=== PATIENT | female | born 1975 | race Caucasian/White ===

== ENCOUNTER 2024-04-17 13:43 | Emergency (ER) | payer BC ==
[2024-04-17 13:54] VITALS: BP 165/84; PULSE 111; RESP 16; TEMP 97.9
--- NOTE | 2024-04-17 14:07 | ED ---
SOB HPI - General Source: patient, RN notes reviewed Mode of arrival: ambulatory Limitations: no limitations <Chelsea Gamez - Last Filed: 04/17/24 14:05> <Melvin Austin - Last Filed: 04/17/24 16:31> - General Chief Complaint: Shortness of Breath Stated Complaint: Chest Pain Time Seen by Provider: 04/17/24 14:00 - History of Present Illness Initial Comments: Quick Note- this is a 48-year-old female presents emergency department chief complaint of shortness of breath, headaches, ear pain, and body aches over the last few days. Denies chest pain chest pressure, palpitations, dizziness. She denies history of DVT, PE, AK, CVA. Is not on blood thinners. (Chelsea Gamez) - Related Data Previous Rx's Medication Instructions Recorded Losartan [Cozaar] 50 mg PO BID #60 tab 04/17/24 Allergies Allergy/AdvReac Type Severity Reaction Status Date / Time No Known Allergies Allergy Verified 04/17/24 13:54 Review of Systems ROS Other: All systems not noted in ROS Statement are negative. <Chelsea Gamez - Last Filed: 04/17/24 14:05> ROS Other: All systems not noted in ROS Statement are negative. <Melvin Austin - Last Filed: 04/17/24 16:31> ROS Statement: Those systems with pertinent positive or pertinent negative responses have been documented in the HPI. Past Medical History Past Medical History: Hypertension History of Any Multi-Drug Resistant Organisms: None Reported Past Surgical History: Section, Hysterectomy, Tonsillectomy Past Psychological History: Anxiety, Depression Smoking Status: Current every day smoker Past Alcohol Use History: Occasional Past Drug Use History: Marijuana <Chelsea Gamez - Last Filed: 04/17/24 14:05> General Exam Limitations: no limitations <Chelsea Gamez - Last Filed: 04/17/24 14:05> - General Exam Comments Initial Comments: Visual Physical Exam Vital signs reviewed General: Well-appearing, nontoxic, no acute distress. Head: Normocephalic, atraumatic Eyes: PERRLA, EOMI ENT: Airway patent Chest: Nonlabored breathing Skin: No visual rash, normal skin tone Neuro: Alert and oriented 3 Musculoskeletal: No gross abnormalities (Chelsea Gamez) Course Vital Signs 04/17/24 13:49 Temperature 97.9 F Pulse Rate 111 H Respiratory 16 Rate Blood Pressure 165/84 O2 Sat by Pulse 100 Oximetry Medical Decision Making <Chelsea Gamez - Last Filed: 04/17/24 14:05> - Lab Data Result diagrams: 04/17/24 14:36 04/17/24 14:36 <Melvin Austin - Last Filed: 04/17/24 16:31> - Medical Decision Making I completed the quick note portion of this chart signed Chelsea Gamez PA-C (Chelsea Gamez) - Lab Data Lab Results 04/17/24 04/17/24 04/17/24 Range/Units 14:36 14:36 14:36 WBC 7.3 (3.8-10.6) k/uL RBC 4.41 (3.80-5.40) m/uL Hgb 14.3 (11.4-16.0) gm/dL Hct 42.0 (34.0-46.0) % MCV 95.2 (80.0-100.0) fL MCH 32.5 (25.0-35.0) pg MCHC 34.1 (31.0-37.0) g/dL RDW 13.5 (11.5-15.5) % Plt Count 142 L (150-450) k/uL MPV 8.4 Neutrophils % 71 % Lymphocytes % 21 % Monocytes % 4 % Eosinophils % 1 % Basophils % 0 % Neutrophils # 5.2 (1.3-7.7) k/uL Lymphocytes # 1.6 (1.0-4.8) k/uL Monocytes # 0.3 (0-1.0) k/uL Eosinophils # 0.1 (0-0.7) k/uL Basophils # 0.0 (0-0.2) k/uL PT 11.0 (10.0-12.5) sec INR 1.0 (<1.2) APTT 25.1 (22.0-30.0) sec Sodium 139 (137-145) mmol/L Potassium 2.7 L* (3.5-5.1) mmol/L Chloride 104 (98-107) mmol/L Carbon Dioxide 25 (22-30) mmol/L Anion Gap 10 mmol/L BUN 8 (7-17) mg/dL Creatinine 0.62 (0.52-1.04) mg/dL Est GFR (CKD-EPI)AfAm >90 (>60 ml/min/1.73 sqM) Est GFR (CKD-EPI)NonAf >90 (>60 ml/min/1.73 sqM) Glucose 99 (74-99) mg/dL Calcium 9.6 (8.4-10.2) mg/dL Magnesium 2.0 (1.6-2.3) mg/dL Total Bilirubin 1.0 (0.2-1.3) mg/dL AST 57 H (14-36) U/L ALT 30 (4-34) U/L Alkaline Phosphatase 73 (38-126) U/L Total Protein 7.7 (6.3-8.2) g/dL Albumin 4.5 (3.5-5.0) g/dL Influenza Type A (PCR) (Not Detectd) Influenza Type B (PCR) (Not Detectd) RSV (PCR) (Not Detectd) SARS-CoV-2 (PCR) (Not Detectd) 04/17/24 Range/Units 14:36 WBC (3.8-10.6) k/uL RBC (3.80-5.40) m/uL Hgb (11.4-16.0) gm/dL Hct (34.0-46.0) % MCV (80.0-100.0) fL MCH (25.0-35.0) pg MCHC (31.0-37.0) g/dL RDW (11.5-15.5) % Plt Count (150-450) k/uL MPV Neutrophils % % Lymphocytes % % Monocytes % % Eosinophils % % Basophils % % Neutrophils # (1.3-7.7) k/uL Lymphocytes # (1.0-4.8) k/uL Monocytes # (0-1.0) k/uL Eosinophils # (0-0.7) k/uL Basophils # (0-0.2) k/uL PT (10.0-12.5) sec INR (<1.2) APTT (22.0-30.0) sec Sodium (137-145) mmol/L Potassium (3.5-5.1) mmol/L Chloride (98-107) mmol/L Carbon Dioxide (22-30) mmol/L Anion Gap mmol/L BUN (7-17) mg/dL Creatinine (0.52-1.04) mg/dL Est GFR (CKD-EPI)AfAm (>60 ml/min/1.73 sqM) Est GFR (CKD-EPI)NonAf (>60 ml/min/1.73 sqM) Glucose (74-99) mg/dL Calcium (8.4-10.2) mg/dL Magnesium (1.6-2.3) mg/dL Total Bilirubin (0.2-1.3) mg/dL AST (14-36) U/L ALT (4-34) U/L Alkaline Phosphatase (38-126) U/L Total Protein (6.3-8.2) g/dL Albumin (3.5-5.0) g/dL Influenza Type A (PCR) Not Detected (Not Detectd) Influenza Type B (PCR) Not Detected (Not Detectd) RSV (PCR) Not Detected (Not Detectd) SARS-CoV-2 (PCR) Not Detected (Not Detectd) Disposition <Chelsea Gamez - Last Filed: 04/17/24 14:05> Is patient prescribed a controlled substance at d/c from ED?: No Time of Disposition: 16:30 <Melvin Austin - Last Filed: 04/17/24 16:31> Clinical Impression: Hypokalemia, Hypertension Disposition: HOME SELF-CARE Condition: Good Instructions (If sedation given, give patient instructions): Hypokalemia (ED), Hypertension (ED) Prescriptions: Losartan [Cozaar] 50 mg PO BID #60 tab Referrals: John Galeano MD [Primary Care Provider] - 1-2 days
[2024-04-17 14:59] LABS: Basophils % (A) 0 %; Eosinophils # (A) 0.1 k/uL (0-0.7); Eosinophils % (A) 1 %; HGB 14.3 gm/dL (11.4-16.0); Lymphocytes # (A) 1.6 k/uL (1.0-4.8); Lymphocytes % (A) 21 %; MCH 32.5 pg (25.0-35.0); MCHC 34.1 g/dL (31.0-37.0); MCV 95.2 fL (80.0-100.0); Mean Platelet Volume 8.4; Monocytes # (A) 0.3 k/uL (0-1.0); Monocytes % (A) 4 %; Neutrophils # (A) 5.2 k/uL (1.3-7.7); Neutrophils % (A) 71 %; Platelet Count 142 k/uL (150-450); RBC 4.41 m/uL (3.80-5.40); RDW 13.5 % (11.5-15.5); WBC 7.3 k/uL (3.8-10.6)
[2024-04-17 15:08] LABS: Partial Thromboplastin Time 25.1 sec (22.0-30.0)
[2024-04-17 15:15] LABS: African American GFR (CKD) >90 (>60 ml/min/1.73 sqM); Albumin 4.5 g/dL (3.5-5.0); Anion Gap 10 mmol/L; Blood Urea Nitrogen 8 mg/dL (7-17); Calcium 9.6 mg/dL (8.4-10.2); Carbon Dioxide 25 mmol/L (22-30); Chloride 104 mmol/L (98-107); Glucose 99 mg/dL (74-99); Non-African American GFR(CKD) >90 (>60 ml/min/1.73 sqM); Sodium 139 mmol/L (137-145); Total Protein 7.7 g/dL (6.3-8.2)
[2024-04-17 15:30] LABS: ALT 30 U/L (4-34); AST 57 U/L (14-36); Alkaline Phosphatase 73 U/L (38-126); Potassium 2.7 mmol/L (3.5-5.1)
--- NOTE | 2024-04-17 15:45 | XR ---
EXAMINATION TYPE: XR chest 2V DATE OF EXAM: 04/17/2024 COMPARISON: None HISTORY: 48 year-old female shortness of breath TECHNIQUE: PA and lateral views FINDINGS: Heart normal size. Aorta and pulmonary vasculature within normal limits. Some strandy atelectasis at the lower lungs. No consolidation or pleural effusion. IMPRESSION: No acute cardiopulmonary process.
[2024-04-17] MEDS: POTASSIUM CHLORIDE ER 20 MEQ TAB.ER PO STA ×3 (17:10→17:11)
[2024-04-17] MEDS: LOSARTAN 50 MG TAB PO STA (17:10)
== END 2024-04-17 17:18 | disposition home or self-care (01) ==
LOC: EC 13:43
DX: E87.6 Hypokalemia (principal); I10 Essential (primary) hypertension; F17.200 Nicotine dependence, unspecified, uncomplicated
CPT/HCPCS: 36415; 71046; 80053; 83735; 85025; 85610; 85730; 87636; 93005; 99285

== ENCOUNTER → 2024-07-12 | Outpatient (CLI) | payer BC ==
[2024-07-12 15:08] LABS: NT-Pro-B-Type Natriuretic Pept 118 pg/mL (0-125)
[2024-07-12 23:41] LABS: ALT 36 U/L (8-44); AST 53 U/L (13-35); BUN/Creat Ratio 15.78 Ratio (12.00-20.00); Blood Urea Nitrogen 14.2 mg/dL (9.0-27.0); Calcium 8.4 mg/dL (8.7-10.3); Carbon Dioxide 23.5 mmol/L (21.6-31.8); Chloride 103 mmol/L (96-109); Chol/HDL Ratio 3.34 Ratio; Glucose 98 mg/dL (70-110); LDL Cholesterol,Calculated 88.7 mg/dL (0.0-131.0); Potassium 3.3 mmol/L (3.5-5.5); Sodium 142 mmol/L (135-145)
== END | disposition home or self-care (01) ==
LOC: LABWHC1 08:51
PROVIDERS: ATTEND Internal Medicine Cardiovascular Disease
DX: E78.2 Mixed hyperlipidemia (principal)
CPT/HCPCS: 36415; 80048; 80061; 83880; 84450; 84460

== ENCOUNTER → 2024-08-17 | Outpatient (CLI) | payer BC ==
--- NOTE | 2024-08-19 19:34 | US ---
EXAMINATION TYPE: US arterial LE single level DATE OF EXAM: 08/17/2024 9:18 AM COMPARISONS: None. CLINICAL INDICATION: Female, 48 years old with history of M79.605 PAIN IN LEG; leg pain and swelling TECHNIQUE: Systolic pressures were taken of the upper and lower extremity arteries with ankle-brachia l indices and toe brachial indices calculated bilaterally. History of: Smoker: Y Hypertension: Y Diabetic: N Hyperlipidemia: N TIA/CVA: N Previous Vascular Surgery: N CAD: N SC: N Vascular Ulcers: N Claudication: N Gangrene: N FINDINGS: Doppler Waveforms: Right: Multiphasic Left: Multiphasic Brachial Artery systolic pressure: Right: 130 Left: 133 Posterior Tibial artery systolic pressure: Right: 145 Left: 157 Dorsalis Pedis artery systolic pressure: Right: 146 Left: 149 Ankle-Brachial Indices: Right: 1.1 Left: 1.2 (Vessel hardening > 1.4; Normal 0.9 - 1.4, Moderate 0.7 - 0.9, Severe 0.5-0.7) IMPRESSION: Normal ankle-brachial brachial indices bilaterally. [facility], , 08/19/2024 7:32 PM
== END | disposition home or self-care (01) ==
LOC: RADUSWWP 08:37
PROVIDERS: ATTEND Family Medicine
DX: M79.605 Pain in left leg (principal); E11.51 Type 2 diabetes mellitus with diabetic peripheral angiopathy without gangrene; E78.5 Hyperlipidemia, unspecified; I10 Essential (primary) hypertension; I25.10 Atherosclerotic heart disease of native coronary artery without angina pectoris; Z86.73 Personal history of transient ischemic attack (TIA), and cerebral infarction without residual deficits; Z87.891 Personal history of nicotine dependence
CPT/HCPCS: 93922

== ENCOUNTER 2025-01-30 08:31 | Inpatient (IN) | payer BC ==
--- NOTE | 2025-01-30 09:53 | ED ---
General Adult HPI - General Chief complaint: Skin/Abscess/Foreign Body Stated complaint: Rash Time Seen by Provider: 01/30/25 08:54 Source: patient, RN notes reviewed Mode of arrival: ambulatory Limitations: no limitations - History of Present Illness Initial comments: 49-year-old female presents to the emergency department for evaluation of lower abdominal/pelvic rash. Patient states that she noticed this about 3 to 4 days ago. She does report that she went to her primary care provider for this and was prescribed a cream. She states that she has stopped using this as she did not feel it was working. She reports that the rash is very painful. She also notes that it is itchy and there is some white discharge from the area. Patient also endorses bleeding lips that started around the same time. She denies any known fever at home. She does report a history of RA and is on methotrexate. - Related Data Home Medications Medication Instructions Recorded Confirmed ALPRAZolam [Xanax] 0.5 mg PO TID 01/30/25 01/30/25 ARIPiprazole [Abilify] 15 mg PO DAILY 01/30/25 01/30/25 Citalopram Hydrobromide [CeleXA] 60 mg PO DAILY 01/30/25 01/30/25 Cyclobenzaprine [Flexeril] 10 mg PO TID PRN 01/30/25 01/30/25 Folic Acid 1 mg PO DAILY 01/30/25 01/30/25 Furosemide [Lasix] 40 mg PO DAILY 01/30/25 01/30/25 Meloxicam [Mobic] 15 mg PO DAILY 01/30/25 01/30/25 Potassium Chloride ER [K-Dur 20] 20 meq PO BID-W/MEALS 01/30/25 01/30/25 Pregabalin [Lyrica] 150 mg PO BID 01/30/25 01/30/25 hydroCHLOROthiazide [Hydrodiuril] 25 mg PO DAILY 01/30/25 01/30/25 metHOTREXate sodium [Methotrexate] 15 mg PO TH 01/30/25 01/30/25 Previous Rx's Medication Instructions Recorded Losartan [Cozaar] 50 mg PO BID #60 tab 04/17/24 Allergies Allergy/AdvReac Type Severity Reaction Status Date / Time No Known Allergies Allergy Verified 01/30/25 11:19 Review of Systems ROS Statement: Those systems with pertinent positive or pertinent negative responses have been documented in the HPI. ROS Other: All systems not noted in ROS Statement are negative. Past Medical History Past Medical History: Hypertension History of Any Multi-Drug Resistant Organisms: None Reported Past Surgical History: Section, Hysterectomy, Tonsillectomy Past Psychological History: Anxiety, Depression Smoking Status: Current every day smoker Past Alcohol Use History: Occasional Past Drug Use History: Marijuana General Exam Limitations: no limitations General appearance: alert Head exam: Present: atraumatic, normocephalic, normal inspection Eye exam: Present: normal appearance, PERRL, EOMI. Absent: scleral icterus, conjunctival injection, periorbital swelling ENT exam: Present: mucous membranes dry, other (Old blood circumferentially to the lips). Absent: normal oropharynx (Erythematous oropharynx) Neck exam: Present: normal inspection. Absent: tenderness, meningismus, lymphadenopathy Respiratory exam: Present: normal lung sounds bilaterally. Absent: respiratory distress, wheezes, rales, rhonchi, stridor Cardiovascular Exam: Present: regular rate, normal rhythm, normal heart sounds. Absent: systolic murmur, diastolic murmur, rubs, gallop, clicks GI/Abdominal exam: Present: soft, normal bowel sounds. Absent: distended, tenderness, guarding, rebound, rigid Extremities exam: Present: normal inspection, full ROM, normal capillary refill. Absent: tenderness, pedal edema, joint swelling, calf tenderness Neurological exam: Present: alert, oriented X3 Psychiatric exam: Present: normal affect, normal mood Skin exam: Present: warm, dry, erythema, other (Multiple erythematous macular lesions to the lower abdomen and the pannus). Absent: intact, normal color Course Vital Signs 01/30/25 01/30/25 01/30/25 08:37 11:07 13:22 Temperature 99.4 F 99.0 F Pulse Rate 109 H 86 86 Respiratory 18 20 18 Rate Blood Pressure 143/75 105/63 113/62 O2 Sat by Pulse 98 100 100 Oximetry Medical Decision Making - Medical Decision Making Was pt. sent in by a medical professional or institution (, PA, SOFTWARE DEVELOPMENT SPECIALIST, urgent care, hospital, or fdc...) When possible be specific @ -No Did you speak to anyone other than the patient for history (EMS, parent, family, police, friend...)? What history was obtained from this source @ -No Did you review nursing and triage notes (agree or disagree)? Why? @ -I reviewed and agree with nursing and triage notes Were old charts reviewed (outside hosp., previous admission, EMS record, old EKG, old radiological studies, urgent care reports/EKG's, fdc records)? Report findings @ -No old charts were reviewed Differential Diagnosis (chest pain, altered mental status, abdominal pain women, abdominal pain men, vaginal bleeding, weakness, fever, dyspnea, syncope, headache, dizziness, GI bleed, back pain, seizure, CVA, palpatations, mental health, musculoskeletal)? @ -Differential Fever: Pneumonia, viral URI, endocarditis, myocarditis, pericarditis, otitis, sinusitis, peritonsillar Abscess, retropharyngeal Abscess, epiglottitis, peritonitis, appendicitis, Awilda cystitis, diverticulitis, hepatitis, colitis, UTI, PID, TOA, pyelonephritis, prostatitis, epididymitis, meningitis, encephalitis, pulmonary embolism, CVA, thyroid storm, pancreatitis, adrenal crisis, cavernous sinus thrombosis, this is not meant to be an all-inclusive list. EKG interpreted by me (3pts min.). @ -None X-rays interpreted by me (1pt min.). @ -None done CT interpreted by me (1pt min.). @ -None done U/S interpreted by me (1pt. min.). @ -None done What testing was considered but not performed or refused? (CT, X-rays, U/S, labs)? Why? @ -None What meds were considered but not given or refused? Why? @ -None Did you discuss the management of the patient with other professionals (professionals i.e. , PA, SOFTWARE DEVELOPMENT SPECIALIST, lab, RT, psych nurse, child protective services social worker, artificial snow making machine operator, teacher, operations officer afloat, rn case manager hospice)? Give summary @ -Case was discussed with Dr. Kaba who was accepting of the admission. He did recommend waiting on any antibiotics or antifungal medications. Was smoking cessation discussed for >3mins.? @ -No Was critical care preformed (if so, how long)? @ -No Were there social determinants of health that impacted care today? How? (Homelessness, low income, unemployed, alcoholism, drug addiction, transportation, low edu. Level, literacy, decrease access to med. care, half-way, rehab)? @ -No Was there de-escalation of care discussed even if they declined (Discuss DNR or withdrawal of care, Hospice)? DNR status @ -No What co-morbidities impacted this encounter? (DM, HTN, Smoking, COPD, CAD, Cancer, CVA, ARF, Chemo, Hep., AIDS, mental health diagnosis, sleep apnea, morbid obesity)? @ -Rheumatoid arthritis on methotrexate Was patient admitted / discharged? Hospital course, mention meds given and route, prescriptions, significant lab abnormalities, going to OR and other pertinent info. @ -Admitted. Patient presented the emergency department for evaluation of rash on her abdomen x 3 to 4 days.Laboratory studies were obtained revealing leukopenia with a WBC of 0.9, hemoglobin 9.1; CMP reveals hypokalemia with potassium of 3.2 this was replenished orally. Patient was administered IV fluids in the emergency department for an ideal body weight of 52 kg. She was administered 1500 cc of lactated Ringer's and started on 100 cc/h maintenance. Patient was administered a dose of Unasyn for coverage of cellulitis. Case was discussed with Dr. Kaba who is accepting of the admission. Infectious disease will be consulted. Further treatment to be directed by inpatient team. Case was discussed with Dr. Kaiser. Undiagnosed new problem with uncertain prognosis? @ -No Drug Therapy requiring intensive monitoring for toxicity (Heparin, Nitro, Insulin, Cardizem)? @ -No Were any procedures done? @ -No Diagnosis/symptom? @ -Leukopenia, pannus rash Acute, or Chronic, or Acute on Chronic? @ -Acute Uncomplicated (without systemic symptoms) or Complicated (systemic symptoms)? @ -Complicated Side effects of treatment? @ -Possibly side effect of methotrexate Exacerbation, Progression, or Severe Exacerbation? @ -No Poses a threat to life or bodily function? How? (Chest pain, USA, DC, pneumonia, PE, COPD, DKA, ARF, appy, cholecystitis, CVA, Diverticulitis, Homicidal, Suicidal, threat to staff... and all critical care pts) @ -Moderate - Lab Data Result diagrams: 01/30/25 10:24 01/31/25 03:16 Lab Results 01/30/25 01/30/25 01/30/25 Range/Units 10:24 10:24 10:24 WBC 0.92 L* (4.50-10.00) 10*3/uL RBC 2.57 L (4.10-5.20) 10*6/uL Hgb 9.1 L (12.0-15.0) g/dL Hct 25.5 L (37.2-46.3) % MCV 99.2 H (80.0-97.0) fL MCH 35.4 H (27.0-32.0) pg MCHC 35.7 (32.0-37.0) g/dL Plt Count 48 L (140-440) 10*3/uL MPV 10.0 (9.5-12.2) fL Immature Gran % (Auto) 1.1 % Immature Gran # 0.01 (0.00-0.04) 10*3/uL Differential Comment Manual Slide Review Performed RBC Morphology Normal Sodium 136 L (137-145) mmol/L Potassium 3.2 L (3.5-5.1) mmol/L Chloride 103 (98-107) mmol/L Carbon Dioxide 24 (22-30) mmol/L Anion Gap 9 mmol/L BUN 17 (7-17) mg/dL Creatinine 0.89 (0.52-1.04) mg/dL Est GFR (CKD-EPI)AfAm 87 (>60 ml/min/1.73 sqM) Est GFR (CKD-EPI)NonAf 75 (>60 ml/min/1.73 sqM) Glucose 119 H (74-99) mg/dL Plasma Lactic Acid Yves 1.1 (0.7-2.0) mmol/L Calcium 8.6 (8.4-10.2) mg/dL Total Bilirubin 1.8 H (0.2-1.3) mg/dL AST 48 H (14-36) U/L ALT 37 H (4-34) U/L Alkaline Phosphatase 80 (38-126) U/L Total Protein 6.3 (6.3-8.2) g/dL Albumin 3.5 (3.5-5.0) g/dL Disposition Clinical Impression: Leukopenia, Rash and nonspecific skin eruption Disposition: ADMITTED IP TO THIS [facility] Condition: Stable Is patient prescribed a controlled substance at d/c from ED?: No
[2025-01-30] MEDS: LACTATED RINGERS 1,000 ML IV ONE (10:20)
[2025-01-30] MEDS: MORPHINE SULFATE 4 MG/ML SYRINGE IVP STA (10:20)
[2025-01-30 10:37] LABS: HCT 25.5 % (37.2-46.3); HGB 9.1 g/dL (12.0-15.0); MCH 35.4 pg (27.0-32.0); MCHC 35.7 g/dL (32.0-37.0); MCV 99.2 fL (80.0-97.0); RBC 2.57 10*6/uL (4.10-5.20); RDW 14.1 % (11.5-14.5)
[2025-01-30 10:41] LABS: WBC 0.92 10*3/uL (4.50-10.00)
[2025-01-30 11:24] LABS: ALT 37 U/L (4-34); AST 48 U/L (14-36); African American GFR (CKD) 87 (>60 ml/min/1.73 sqM); Albumin 3.5 g/dL (3.5-5.0); Alkaline Phosphatase 80 U/L (38-126); Anion Gap 9 mmol/L; Blood Urea Nitrogen 17 mg/dL (7-17); Calcium 8.6 mg/dL (8.4-10.2); Carbon Dioxide 24 mmol/L (22-30); Chloride 103 mmol/L (98-107); Glucose 119 mg/dL (74-99); Non-African American GFR(CKD) 75 (>60 ml/min/1.73 sqM); Platelet Count 48 10*3/uL (140-440); Potassium 3.2 mmol/L (3.5-5.1); RBC Morphology Normal; Sodium 136 mmol/L (137-145); Total Bilirubin 1.8 mg/dL (0.2-1.3); Total Protein 6.3 g/dL (6.3-8.2)
[2025-01-30] MEDS ORDERED: NALOXONE 0.4 MG/ML 1 ML VIAL IV PRN (11:24)
[2025-01-30] MEDS ORDERED: ONDANSETRON 4 MG/2 ML VIAL IVP PRN (11:24)
[2025-01-30] MEDS: AMPICILLIN-SULBACTAM 3 GM in SODIUM CHLORIDE 0.9% 100 ML IVPB STA (11:53)
[2025-01-30] MEDS: POTASSIUM CHLORIDE ER 20 MEQ TAB.ER PO STA (11:54)
[2025-01-30] MEDS ORDERED: VANCOMYCIN IV PER PHARMACY 1 EACH MISC MISCELLANE PRN (13:13)
[2025-01-30] MEDS: LACTATED RINGERS 500 ML IV ONE (13:18)
[2025-01-30] MEDS: LACTATED RINGERS 1,000 ML IV SCH (13:40)
[2025-01-30] MEDS: CALCIUM CARBONATE 500 MG CHEWABLE PO PRN (15:13)
[2025-01-30] MEDS: VANCOMYCIN 2,000 MG in SODIUM CHLORIDE 0.9% 500 ML 500 ML IVPB ONE (15:13)
--- NOTE | 2025-01-30 21:38 | P.HPIM ---
History of Present Illness H&P Date: 01/30/25 Chief Complaint: Severe cellulitis 49-year-old patient follows Dr. John Galeano. Chronic medical conditions include anxiety, essential hypertension, depression, muscle spasms, chronic pain, rheumatoid arthritis. About 2 days ago patient noted increasing redness in the lower abdomen. Progressed to get much worse. Breakdown of skin under the skin fold. And also between the thighs. Patient has been scratching. Also she developed superficial bleeding on the lips. Slight soreness in the mouth. Denies any fever and chills. Patient did confirm that she has been scratching. She also has a dog at home. Has received all his vaccination. Patient denies any fever or chills. She is extremely painful in the groin area. Superficial breakdown of skin 2. Review of systems: GEN.: Tired EYES: None HEENT: None NECK: None RESPIRATORY: Baseline some shortness of breath CARDIOVASCULAR: None GASTROINTESTINAL: None GENITOURINARY: None MUSCULOSKELETAL: None LYMPHATICS: None HEMATOLOGICAL: None PSYCHIATRY: None NEUROLOGICAL: None Dermatological as above Social history: Lives with her . Smokes a pack a day. Physical examination: VITAL SIGNS: 99.4, 109, 18, 143 x 75, 98% room GENERAL: BMI 50.5, laying in bed awake. EYES: Pupils equal. Conjunctiva juan ramon l. HEENT: External appearance of nose and ears normal, oral cavity dried blood margaret ng the mucocutaneous junction and corner of the mouth. l. NECK: JVD not raised; masses not palpable. HEART: First and second heart sounds are normal; no edema. LUNGS: Respiratory rate normal; decreased breath sound. ABDOMEN: Soft, nontender, liver spleen not palpable, no masses palpable. PSYCH: [Alert and oriented x3; mood and affect anxious. MUSCULOSKELETAL:No Clubbing/cyanosis;muscles-grossly intact. Elongated nails, dirty underneath NEUROLOGICAL: Cranial nerves grossly intact; no facial asymmetry, power and sensation grossly intact. LYMPHATICS: No lymph nodes palpable in the axilla and neck DERMATOLOGICAL: Patient examined in presence of nurse hearing aid assembly supervisor Ana M. Area of redness upper part inside of the thigh. With superficial deroofing of bed. Appears to be possible fungal infection in the groin area. There is also breakdown and cellulitic changes very tender in the abdominal apron fold. With breakdown of skin. Areas of scratch berkley also in the upper abdomen. Very tender raw moist INVESTIGATIONS, reviewed in the clinical context: January 30, 2025: White count 0.92 hemoglobin 9.1 platelets 48 sodium 136 potassium 3.2 creatinine 0.89 total bilirubin 1.8 AST 48 ALT 37 Assessment plan: - Acute secondary severe cellulitis, bilateral upper thigh, groin area, perineum. Also present in the skin fold in the lower abdomen. Very tender. Moist and weeping. Possibly precipitated by underlying intertriginous fungal infection and made worse by immunosuppression IV vancomycin. Local wound care. Consultation to ID done. Patient was instructed not to scratch lesions. will bring in nail clippers to clip her nails. In the meantime gloves have been given. - Pancytopenia, from methotrexate Hold methotrexate. - Chronic rheumatoid arthritis Continue pain medications - Depression Celexa. Abilify. - Anxiety Xanax - Essential hypertension Cozaar - Morbid obesity BMI 50.5 Weight loss measures, outpatient IV vancomycin. IV fluids. ID consulted. Repeat labs in the morning. Given the complexity and severity of patient's condition expect the patient to be in the hospital at least for 2 overnights. Patient can barely move her legs because of severe pain severe inflammation. Will need IV antibiotics IV fluids Past Medical History Past Medical History: Hypertension History of Any Multi-Drug Resistant Organisms: None Reported Past Surgical History: Section, Hysterectomy, Tonsillectomy Smoking Status: Current every day smoker Medications and Allergies Home Medications Medication Instructions Recorded Confirmed Type Losartan [Cozaar] 50 mg PO BID #60 tab 04/17/24 01/30/25 Rx ALPRAZolam [Xanax] 0.5 mg PO TID 01/30/25 01/30/25 History ARIPiprazole [Abilify] 15 mg PO DAILY 01/30/25 01/30/25 History Citalopram Hydrobromide [CeleXA] 60 mg PO DAILY 01/30/25 01/30/25 History Cyclobenzaprine [Flexeril] 10 mg PO TID PRN 01/30/25 01/30/25 History Folic Acid 1 mg PO DAILY 01/30/25 01/30/25 History Furosemide [Lasix] 40 mg PO DAILY 01/30/25 01/30/25 History Meloxicam [Mobic] 15 mg PO DAILY 01/30/25 01/30/25 History Potassium Chloride ER [K-Dur 20] 20 meq PO BID-W/MEALS 01/30/25 01/30/25 History Pregabalin [Lyrica] 150 mg PO BID 01/30/25 01/30/25 History hydroCHLOROthiazide [Hydrodiuril] 25 mg PO DAILY 01/30/25 01/30/25 History metHOTREXate sodium [Methotrexate] 15 mg PO TH 01/30/25 01/30/25 History Allergies Allergy/AdvReac Type Severity Reaction Status Date / Time No Known Allergies Allergy Verified 01/30/25 11:19 Physical Exam Vitals: Vital Signs Temp Pulse Pulse Resp BP BP BP 01/30/25 20:00 98.9 F 68 17 122/73 01/30/25 14:28 98.8 F 82 18 115/66 01/30/25 13:22 86 18 113/62 01/30/25 11:07 99.0 F 86 20 105/63 01/30/25 08:37 99.4 F 109 H 18 143/75 Pulse Ox 01/30/25 20:00 94 L 01/30/25 14:28 100 01/30/25 13:22 100 01/30/25 11:07 100 01/30/25 08:37 98 Intake and Output 01/30/25 01/30/25 01/30/25 06:59 14:59 22:59 Other: Weight 129.274 kg 129.274 kg Results CBC & Chem 7: 01/30/25 10:24 01/30/25 10:24 Labs: Abnormal Lab Results - Last 24 Hours (Table) 01/30/25 01/30/25 Range/Units 10:24 10:24 WBC 0.92 L* (4.50-10.00) 10*3/uL RBC 2.57 L (4.10-5.20) 10*6/uL Hgb 9.1 L (12.0-15.0) g/dL Hct 25.5 L (37.2-46.3) % MCV 99.2 H (80.0-97.0) fL MCH 35.4 H (27.0-32.0) pg Plt Count 48 L (140-440) 10*3/uL Sodium 136 L (137-145) mmol/L Potassium 3.2 L (3.5-5.1) mmol/L Glucose 119 H (74-99) mg/dL Total Bilirubin 1.8 H (0.2-1.3) mg/dL AST 48 H (14-36) U/L ALT 37 H (4-34) U/L
[2025-01-30] MEDS: HYDROmorphone 1 MG/ML 1 ML SYRINGE IVP PRN (22:25)
[2025-01-30] MEDS: PREGABALIN 75 MG CAP PO SCH (22:25)
[2025-01-30] MEDS: ALPRAZolam 0.5 MG TAB PO SCH (22:25)
[2025-01-30] MEDS: LOSARTAN 50 MG TAB PO SCH (22:25)
[2025-01-31 04:18] LABS: African American GFR (CKD) >90 (>60 ml/min/1.73 sqM); Non-African American GFR(CKD) >90 (>60 ml/min/1.73 sqM)
[2025-01-31] MEDS: VANCOMYCIN 2,000 MG in SODIUM CHLORIDE 0.9% 500 ML 500 ML IVPB SCH (05:53)
[2025-01-31] MEDS: HYDROmorphone 0.5 MG/0.5 ML SYRINGE IVP PRN (05:53)
[2025-01-31] MEDS: ARIPiprazole 15 MG TAB PO SCH (08:51)
[2025-01-31] MEDS: MELOXICAM 7.5 MG TAB PO SCH (08:52)
[2025-01-31] MEDS: CITALOPRAM HYDROBROMIDE 20 MG TAB PO SCH (08:52)
[2025-01-31] MEDS: FOLIC ACID 1 MG TAB PO SCH (08:52)
--- NOTE | 2025-01-31 09:55 | P.CONS ---
History of Present Illness - Reason for Consult Consult date: 01/30/25 Abdominal rash Requesting physician: Gavi Price - Chief Complaint Abdominal rash and pain x 3 days - History of Present Illness Patient is a 49-year-old female with a past medical history significant for hypertension anxiety depression current everyday smoker presenting to the hospital for evaluation of lower abdominal fold rash that apparently been going on for the last 3 to 4 days patient has been eval by her primary care physician who did prescribe a local cream however he did not have any improvement patient did have a superficial laceration to the right abdominal fold area the patient be complaining of pain describing it to be sharp severe intensity without any radiation and denies having significant drainage from it patient complaining of some itching with the send the patient has been evaluated on presentation to the hospital patient did have low-grade fever of 99.4 F patient did have a heart rate of 90 patient was not hypoxic or hypotensive no need for supplemental oxygen she did have a white count of 0.92 creatinine has been normal potassium was 3.2 liver enzymes mildly elevated patient has been admitted to the hospital and has received a dose of Unasyn infectious disease was consulted for further management of antibiotic therapy Review of Systems Positive point and negatives has been mentioned in the HPI, complete review of systems was performed and all other systems are negative Past Medical History Past Medical History: Hypertension History of Any Multi-Drug Resistant Organisms: None Reported Past Surgical History: Section, Hysterectomy, Tonsillectomy Past Psychological History: Anxiety, Depression Smoking Status: Current every day smoker Past Alcohol Use History: Occasional Past Drug Use History: Marijuana Medications and Allergies Home Medications Medication Instructions Recorded Confirmed Type Losartan [Cozaar] 50 mg PO BID #60 tab 04/17/24 01/30/25 Rx ALPRAZolam [Xanax] 0.5 mg PO TID 01/30/25 01/30/25 History ARIPiprazole [Abilify] 15 mg PO DAILY 01/30/25 01/30/25 History Citalopram Hydrobromide [CeleXA] 60 mg PO DAILY 01/30/25 01/30/25 History Cyclobenzaprine [Flexeril] 10 mg PO TID PRN 01/30/25 01/30/25 History Folic Acid 1 mg PO DAILY 01/30/25 01/30/25 History Furosemide [Lasix] 40 mg PO DAILY 01/30/25 01/30/25 History Meloxicam [Mobic] 15 mg PO DAILY 01/30/25 01/30/25 History Potassium Chloride ER [K-Dur 20] 20 meq PO BID-W/MEALS 01/30/25 01/30/25 History Pregabalin [Lyrica] 150 mg PO BID 01/30/25 01/30/25 History hydroCHLOROthiazide [Hydrodiuril] 25 mg PO DAILY 01/30/25 01/30/25 History metHOTREXate sodium [Methotrexate] 15 mg PO TH 01/30/25 01/30/25 History Allergies Allergy/AdvReac Type Severity Reaction Status Date / Time No Known Allergies Allergy Verified 01/30/25 11:19 Physical Exam Vitals: Vital Signs Temp Pulse Resp BP Pulse Ox 01/30/25 11:07 99.0 F 86 20 105/63 100 01/30/25 08:37 99.4 F 109 H 18 143/75 98 Intake and Output 01/29/25 01/30/25 01/30/25 22:59 06:59 14:59 Other: Weight 129.274 kg GENERAL DESCRIPTION: Middle-age female lying in bed, no distress. No tachypnea or accessory muscle of respiration use. HEENT: Shows Pallor , no scleral icterus. Oral mucous membrane is dry. NECK: Trachea central, no thyromegaly. LUNGS: Unlabored breathing. Clear to auscultation anteriorly. No wheeze or crackle. HEART: S1, S2, regular rate and rhythm. No loud murmur ABDOMEN: Soft, abdominal fold with superficial ulceration no significant slough tissue painful to touch culture has been obtained EXTREMITIES: No edema of feet. SKIN: No rash, no masses palpable. NEUROLOGICAL: The patient is awake, alert, oriented x3, mood and affect normal. Results CBC & Chem 7: 01/30/25 10:24 01/31/25 03:16 Labs: Abnormal Lab Results - Last 24 Hours (Table) 01/30/25 01/30/25 Range/Units 10:24 10:24 WBC 0.92 L* (4.50-10.00) 10*3/uL RBC 2.57 L (4.10-5.20) 10*6/uL Hgb 9.1 L (12.0-15.0) g/dL Hct 25.5 L (37.2-46.3) % MCV 99.2 H (80.0-97.0) fL MCH 35.4 H (27.0-32.0) pg Plt Count 48 L (140-440) 10*3/uL Sodium 136 L (137-145) mmol/L Potassium 3.2 L (3.5-5.1) mmol/L Glucose 119 H (74-99) mg/dL Total Bilirubin 1.8 H (0.2-1.3) mg/dL AST 48 H (14-36) U/L ALT 37 H (4-34) U/L Assessment and Plan (1) Open abdominal wall wound Current Visit: Yes Status: Acute Code(s): S31.109A - UNSP OPN WND ABD WALL, UNSP Q W/O PENET PERIT CAV, INIT SNOMED Code(s): 477052529 (2) Abdominal wall cellulitis Current Visit: Yes Status: Acute Code(s): L03.311 - CELLULITIS OF ABDOMINAL WALL SNOMED Code(s): 29021997 (3) Elevated liver enzymes Current Visit: Yes Status: Acute Code(s): R74.8 - ABNORMAL LEVELS OF OTHER SERUM ENZYMES SNOMED Code(s): 554178847 Plan: 1patient presented to the hospital with painful abdominal wall rash in this patient who did have a superficial ulceration in the abdominal fold concerning for abdominal wall wound and secondary cellulitis likely from gram-positive skin martha less likely gram-negative infection. 2patient with elevated liver enzymes no significant tenderness to right upper quadrant area rule out gallbladder disease. 3local culture has been obtained that will guide further antibiotic therapy. 4I will empirically start the patient on vancomycin pharmacy to dose while waiting for the culture to finalize. 5check ultrasound of the liver and gallbladder area. We will follow on clinical condition and cultures to further adjust medication if needed Thank you for this consultation we will follow the patient along with you Dictation was produced using [employer] dictation software. please excuse any grammatical, word or spelling errors. Time with Patient: Greater than 30
--- NOTE | 2025-01-31 10:46 | US ---
EXAMINATION TYPE: US abdomen limited DATE OF EXAM: 01/31/2025 COMPARISON: NONE CLINICAL INDICATION: Female, 49 years old with history of Elevated liver enzymes; Elevated liver enzy mes. hx lap band surgery per pt TECHNIQUE: Grayscale and color Doppler imaging of the right upper quadrant. FINDINGS: EXAM MEASUREMENTS: Liver Length: Limited- 19.1 cm Gallbladder Wall: 0.18 cm CBD: 1.07 cm, color Doppler imaging was utilized to isolate the common bile duct for measurement. Right Kidney: 11.2 x 6.9 x 5.1 cm FELLER OPERATOR NOTES: *Exam is very limited due to gas and pt body habitus. Pancreas: Obscured Liver: Extremely limited, unable to properly evaluate. Measurement is enlarged, but limited. Increa sed attenuation. Appears coarse. Gallbladder: Appears enlarged measuring 10.2 cm in length. Limited. Evidence for sonographic Choi's sign: No CBD: Dilated Right Kidney: No hydronephrosis or masses seen IMPRESSION: 1. Limited evaluation of the liver however there appears to be hepatic steatosis with underlying hepa tomegaly. 2. Gallbladder hydrops. Dilated common bile duct. [facility], , 01/31/2025 10:44 AM
--- NOTE | 2025-01-31 12:00 | P.CONS ---
History of Present Illness - Reason for Consult Consult date: 01/31/25 wound care - History of Present Illness This is a 49-year-old patient being seen in's for multiple ulcerations to the fold of her pannus. Patient states that the ulceration started about a week ago they are raw and bleeding at times. Granulation seen throughout with minimal slough and nonviable tissue present. Patient does have serous drainage to the site. Patient also has bloody chapped lips. Etiology unknown considerations for side effects related to methotrexate. Patient's past medical history is sig nificant for hypertension and every day smoker. Review Of Systems: Constitutional: No fever, no chills, no night sweats. No weight change. No weakness, fatigue or lethargy. No daytime sleepiness. Integumentary:reports wounds, no lesions. No rash or pruritus. No unusual bruising. No change in hair or nails. Physical exam: General Appearance: Alert, cooperative, no distress, appears stated age. Skin: See HPI all other Skin color, texture, tugor normal, no rashes or lesions. Neurologic: Alert oriented x3 Assessment: 1. Nonhealing ulcerations limited to skin breakdown other site Plan: 1. Utilize Tri[employer] and wicking material to the site daily. Thank for the consultation any questions please contact the wound care center DNP note has been reviewed and discussed with Dr. Rdz and the impression and plan of care has been directed as dictated. Past Medical History Past Medical History: Hypertension History of Any Multi-Drug Resistant Organisms: None Reported Past Surgical History: Section, Hysterectomy, Tonsillectomy Past Psychological History: Anxiety, Depression Smoking Status: Current every day smoker Past Alcohol Use History: Occasional Past Drug Use History: Marijuana Medications and Allergies Home Medications Medication Instructions Recorded Confirmed Type Losartan [Cozaar] 50 mg PO BID #60 tab 04/17/24 01/30/25 Rx ALPRAZolam [Xanax] 0.5 mg PO TID 01/30/25 01/30/25 History ARIPiprazole [Abilify] 15 mg PO DAILY 01/30/25 01/30/25 History Citalopram Hydrobromide [CeleXA] 60 mg PO DAILY 01/30/25 01/30/25 History Cyclobenzaprine [Flexeril] 10 mg PO TID PRN 01/30/25 01/30/25 History Folic Acid 1 mg PO DAILY 01/30/25 01/30/25 History Furosemide [Lasix] 40 mg PO DAILY 01/30/25 01/30/25 History Meloxicam [Mobic] 15 mg PO DAILY 01/30/25 01/30/25 History Potassium Chloride ER [K-Dur 20] 20 meq PO BID-W/MEALS 01/30/25 01/30/25 History Pregabalin [Lyrica] 150 mg PO BID 01/30/25 01/30/25 History hydroCHLOROthiazide [Hydrodiuril] 25 mg PO DAILY 01/30/25 01/30/25 History metHOTREXate sodium [Methotrexate] 15 mg PO TH 01/30/25 01/30/25 History Allergies Allergy/AdvReac Type Severity Reaction Status Date / Time No Known Allergies Allergy Verified 01/30/25 11:19 Physical Exam Vitals: Vital Signs Temp Pulse Pulse Resp BP BP BP 01/31/25 10:16 90 16 01/31/25 07:00 98.4 F 90 16 94/50 01/31/25 06:00 106/68 01/31/25 02:00 98.8 F 84 16 88/59 01/30/25 20:00 98.9 F 68 17 122/73 01/30/25 14:28 98.8 F 82 18 115/66 01/30/25 13:22 86 18 113/62 Pulse Ox 01/31/25 10:16 01/31/25 07:00 98 01/31/25 06:00 01/31/25 02:00 90 L 01/30/25 20:00 94 L 01/30/25 14:28 100 01/30/25 13:22 100 Intake and Output 01/30/25 01/31/25 01/31/25 22:59 06:59 14:59 Other: # Voids 2 1 Weight 129.274 kg Results CBC & Chem 7: 01/30/25 10:24 01/31/25 03:16 Labs: Microbiology - Last 24 Hours (Table) 01/30/25 10:24 Gram Stain - Preliminary Groin Wound Culture - Preliminary Assessment and Plan (1) Non-pressure chronic ulcer of skin of other sites limited to breakdown of skin Current Visit: Yes Status: Acute Code(s): L98.491 - NON-PRS CHRONIC ULCER SKIN/ SITES LIMITED TO BRKDWN SKIN SNOMED Code(s): 23436689
[2025-01-31] MEDS: POTASSIUM CHLORIDE ER 20 MEQ TAB.ER PO STA (12:12)
[2025-01-31] MEDS: IOPAMIDOL CONTRAST (ORAL USE) VIAL PO PRN (12:22)
[2025-01-31] MEDS: AMPICILLIN-SULBACTAM 3 GM in SODIUM CHLORIDE 0.9% 100 ML IVPB SCH (12:23)
[2025-01-31] MEDS: LEUCOVORIN 5 MG TAB PO SCH (12:24)
--- NOTE | 2025-01-31 14:19 | CT ---
EXAMINATION TYPE: CT abdomen pelvis w con DATE OF EXAM: 01/31/2025 COMPARISON: None CLINICAL INDICATION: Female, 49 years old with history of abd pain; PHH, Abdominal pain TECHNIQUE: Performed with Oral Contrast and with IV Contrast, patient injected with 100 ml mL of Isovue 300. CT DLP: 7.[address] CTDI: mGy Automated exposure control for dose reduction was used. FINDINGS: There is mild pleural parenchymal scarring in the right lung base. There are postoperative changes of a lap band. The gallbladder is normal without distention, wall thickening, pericholecystic fluid or gallstones. T here is no biliary ductal dilatation. There is no focal mass or organomegaly involving the liver, pancreas, or adrenal glands. There is a suggestion of mild nodularity of the liver surface raising the question of cirrhosis. The spleen is u pper limits of normal in size. There is no solid renal mass or hydronephrosis and there is homogeneous contrast enhancement of the r enal parenchyma. The caliber the abdominal aorta is normal is no retroperitoneal adenopathy or hemorr ulices. The bowel loops are normal in caliber and there is no evidence of dilatation or obstruction. No infla mmatory changes are identified in the bowel wall or mesentery. There is no free intraperitoneal air or fluid. No pelvic mass, free fluid, abscess or adenopathy. There are surgical absence of the uterus. The osseous structures and soft tissues are intact. IMPRESSION: 1. Mild pleural parenchymal scarring in the right lung base posteriorly. 2. Liver morphology suggests the possibility of cirrhosis and clinical correlation is recommended. 3. No acute changes within the abdomen or pelvis. 4. Postsurgical changes of lap band procedure and hysterectomy. [facility], , 01/31/2025 2:17 PM
[2025-01-31 16:22] LABS: Protein, Total 5.5 g/dL (6.2-8.2)
[2025-01-31 16:41] LABS: % Iron Saturation 20.5 (12.00-45.00)
--- NOTE | 2025-01-31 17:48 | P.CONS ---
History of Present Illness - Reason for Consult Consult date: 01/31/25 pancytopenia Requesting physician: Deon Kaba - Chief Complaint abd pain, rash - History of Present Illness Patient is a 49-year-old female who presented to the emergency room for complaints of abdominal pain and rash. Consult was placed for pancytopenia. HPI is somewhat limited as patient is a poor historian and also somewhat confused. Per patient and significant other at bedside patient been having abdominal pain for the last month, as well as progressing rash to panus. Also reports patient has been intermittently confused for a while, but worse over the last 1 to 2 months. Patient also reporting lips are sore, chapped and bleeding. Denies nausea vomiting diarrhea. Denies any recent URI symptoms. Denies fever and chills. Patient does have a history of RA and is on methotrexate, believes her last dose was last . Denies any changes in dosing. 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 Denies any recent antibiotics or steroid use. CBC showing WBC 0.92, hemoglobin 9.1, platelets 48,000. Upon review of EMR CBC from April 2024 showed WBC 7.3, hemoglobin 14.3, platelets 142,000. Creatinine 0.76, GFR greater than 90. Bilirubin elevated at 1.8. AST 48, ALT 37, ALP 80. Review of Systems 10 point ROS is negative except as stated in the HPI Past Medical History Past Medical History: Hypertension History of Any Multi-Drug Resistant Organisms: None Reported Past Surgical History: Section, Hysterectomy, Tonsillectomy Past Psychological History: Anxiety, Depression Smoking Status: Current every day smoker Past Alcohol Use History: Occasional Past Drug Use History: Marijuana Medications and Allergies Home Medications Medication Instructions Recorded Confirmed Type Losartan [Cozaar] 50 mg PO BID #60 tab 04/17/24 01/30/25 Rx ALPRAZolam [Xanax] 0.5 mg PO TID 01/30/25 01/30/25 History ARIPiprazole [Abilify] 15 mg PO DAILY 01/30/25 01/30/25 History Citalopram Hydrobromide [CeleXA] 60 mg PO DAILY 01/30/25 01/30/25 History Cyclobenzaprine [Flexeril] 10 mg PO TID PRN 01/30/25 01/30/25 History Folic Acid 1 mg PO DAILY 01/30/25 01/30/25 History Furosemide [Lasix] 40 mg PO DAILY 01/30/25 01/30/25 History Meloxicam [Mobic] 15 mg PO DAILY 01/30/25 01/30/25 History Potassium Chloride ER [K-Dur 20] 20 meq PO BID-W/MEALS 01/30/25 01/30/25 History Pregabalin [Lyrica] 150 mg PO BID 01/30/25 01/30/25 History hydroCHLOROthiazide [Hydrodiuril] 25 mg PO DAILY 01/30/25 01/30/25 History metHOTREXate sodium [Methotrexate] 15 mg PO TH 01/30/25 01/30/25 History Allergies Allergy/AdvReac Type Severity Reaction Status Date / Time No Known Allergies Allergy Verified 01/30/25 11:19 Physical Exam Vitals: Vital Signs Temp Pulse Pulse Resp BP BP BP 01/31/25 10:16 90 16 01/31/25 07:00 98.4 F 90 16 94/50 01/31/25 06:00 106/68 01/31/25 02:00 98.8 F 84 16 88/59 01/30/25 20:00 98.9 F 68 17 122/73 01/30/25 14:28 98.8 F 82 18 115/66 01/30/25 13:22 86 18 113/62 Pulse Ox 01/31/25 10:16 01/31/25 07:00 98 01/31/25 06:00 01/31/25 02:00 90 L 01/30/25 20:00 94 L 01/30/25 14:28 100 01/30/25 13:22 100 Intake and Output 01/30/25 01/31/25 01/31/25 22:59 06:59 14:59 Other: # Voids 2 1 Weight 129.274 kg - Constitutional General appearance: no acute distress, obese - EENT mild mucositis, dried blood around lips Eyes: anicteric sclerae, EOMI ENT: hearing grossly normal - Respiratory Respiratory: bilateral: CTA - Cardiovascular Rhythm: regular - Gastrointestinal General gastrointestinal: no hepatomegaly, soft, no splenomegaly, no tenderness - Integumentary extensive rash to panus with desquamation Integumentary: rash - Neurologic mild confusion, slow to answer questions Results CBC & Chem 7: 01/30/25 10:24 01/31/25 03:16 Labs: Microbiology - Last 24 Hours (Table) 01/30/25 10:24 Gram Stain - Preliminary Groin Wound Culture - Preliminary Assessment and Plan (1) Pancytopenia Current Visit: Yes Status: Acute Priority: High Code(s): D61.818 - OTHER PANCYTOPENIA SNOMED Code(s): 018153920 (2) Rheumatoid arthritis Current Visit: Yes Status: Acute Priority: High Code(s): M06.9 - RHEUMATOID ARTHRITIS, UNSPECIFIED SNOMED Code(s): 22385036 (3) Elevated liver enzymes Current Visit: Yes Status: Acute Priority: High Code(s): R74.8 - ABNORMAL LEVELS OF OTHER SERUM ENZYMES SNOMED Code(s): 357446561 (4) Non-pressure chronic ulcer of skin of other sites limited to breakdown of skin Current Visit: Yes Status: Acute Priority: High Code(s): L98.491 - NON-PRS CHRONIC ULCER SKIN/ SITES LIMITED TO BRKDWN SKIN SNOMED Code(s): 21006684 Plan: Abd pain, hyperbilirubinemia, transaminitis: Presented to the emergency room for complaints of abdominal pain and rash. Per patient and significant other at bedside patient been having abdominal pain for the last month Denies nausea vomiting diarrhea. Denies fever and chills. -Bilirubin elevated at 1.8. AST 48, ALT 37, ALP 80. Ammonia < 9 -CT AP ordered to further evaluate Rheumatoid arthritis: Follows with Dr. Silverio. On methotrexate weekly. Believes last dose was last . Denies any changes to dosing. Denies recent abx or steroid use -Concern for possible MTX toxicity -Methotrexate level ordered -Hold MTX -Leucovorin started Rash of panus, mucositis Extensive rash with desquamation of panus. Patient also reporting lips are sore, chapped and bleeding. -IV abx started -BC negative thus far. Wound culture pending -ID following -Possibly r/t MTX toxicity -Salt and soda rinses, and oral care ordered -Wound care consulted Confusion: Per family at bedside, has been intermittent for a while, but progressing over the last 1-2 months -Ammonia level <9 -UA with reflex ordered -MRI brain ordered to further evaluate Pancytopenia: -CBC showing WBC 0.92, hemoglobin 9.1, platelets 48,000. Upon review of EMR CBC from April 2024 showed WBC 7.3, hemoglobin 14.3, platelets 142,000 -Pancytopenia workup ordered to r/o other etiologies -May be r/t MTX toxicity -Continue to monitor CBC, supportive transfusion as needed Doctor attests: I performed a history and physical examination of this patient, developed impression and plan of care. Discussed with dictator. I agree with dictators note, documented as a scribe.
--- NOTE | 2025-01-31 19:39 | P.PN ---
Subjective Progress Note Date: 01/31/25 Principal diagnosis: Reason for follow-up is abdominal wall wound and cellulitis Patient is a 49-year-old female with a past medical history significant for hypertension anxiety depression current everyday smoker presenting to the hospital for evaluation of lower abdominal fold rash that apparently been going on for the last 3 to 4 days before presentation to the [facility]. On today's evaluation that is 01/31/2025, the patient continues to be afebrile, the patient is on room air and breathing comfortably, the Pt denies having any chest pain or cough, the patient denies having any nausea vomiting abdominal pain slightly decreased in intensity. Local cultures currently pending no CBC was done today Objective - Vital Signs Vital signs: Vital Signs Temp 99.0 F 01/31/25 13:35 Pulse 83 01/31/25 14:47 Resp 16 01/31/25 14:47 BP 84/56 01/31/25 13:35 Pulse Ox 96 01/31/25 13:35 FiO2 Intake & Output 01/30/25 01/31/25 01/31/25 18:59 06:59 18:59 Intake Total 50 Balance 50 Weight 129.274 kg Intake: Oral 50 Other: # Voids 1 - Exam GENERAL DESCRIPTION: Middle-age female lying in bed in no distress RESPIRATORY SYSTEM: Unlabored breathing , decreased breath sounds at bases HEART: S1 S2 regular rate and rhythm , ABDOMEN: Soft , no tenderness EXTREMITIES: No edema feet - Labs CBC & Chem 7: 01/30/25 10:24 01/31/25 03:16 Labs: Microbiology - Last 24 Hours (Table) 01/30/25 10:24 Gram Stain - Preliminary Groin Wound Culture - Preliminary Assessment and Plan (1) Open abdominal wall wound Current Visit: Yes Status: Acute Code(s): S31.109A - UNSP OPN WND ABD WALL, UNSP Q W/O PENET PERIT CAV, INIT SNOMED Code(s): 118752587 (2) Abdominal wall cellulitis Current Visit: Yes Status: Acute Code(s): L03.311 - CELLULITIS OF ABDOMINAL WALL SNOMED Code(s): 23645972 (3) Elevated liver enzymes Current Visit: Yes Status: Acute Priority: High Code(s): R74.8 - ABNORMAL LEVELS OF OTHER SERUM ENZYMES SNOMED Code(s): 230141315 Plan: 1patient presented to the hospital with painful abdominal wall rash in this patient who did have a superficial ulceration in the abdominal fold concerning for abdominal wall wound and secondary cellulitis likely from gram-positive skin martha less likely gram-negative infection. 2patient with elevated liver enzymes no significant tenderness to right upper quadrant area, CT and ultrasound did not show any acute abnormality to the liver or gallbladder area 3local culture has been obtained which are currently pending 4patient currently being treated with Unasyn and vancomycin while waiting for the culture to finalize Dictation was produced using [employer] dictation software. please excuse any grammatical, word or spelling errors.
[2025-01-31] MEDS: SALT AND SODA MOUTHWASH 1,000 ML PO SCH (20:21)
[2025-01-31] MEDS: KETOROLAC 15 MG/ML 1 ML VIAL IVP PRN (20:25)
--- NOTE | 2025-01-31 20:48 | P.PN ---
Progress Note - Text Progress Note Date: 01/31/25 Chief Complaint: Severe cellulitis 49-year-old patient follows Dr. John Galeano. Chronic medical conditions include anxiety, essential hypertension, depression, muscle spasms, chronic pain, rheumatoid arthritis. About 2 days ago patient noted increasing redness in the lower abdomen. Progressed to get much worse. Breakdown of skin under the skin fold. And also between the thighs. Patient has been scratching. Also she developed superficial bleeding on the lips. Slight soreness in the mouth. Denies any fever and chills. Patient did confirm that she has been scratching. She also has a dog at home. Has received all his vaccination. Patient denies any fever or chills. She is extremely painful in the groin area. Superficial breakdown of skin 2. January 31: Patient's pain is actually better. Did ambulate. Patient's and daughter at the bedside. Nicotine patch being ordered. Patient placed on IV Unasyn. And IV vancomycin per ID. IV fluids. CT abdomen pelvis showed evidence of possible cirrhosis. Tolerating diet. Patient seen by hematology. Workup in place. Active Medications Acetaminophen (Acetaminophen Tab 325 Mg Tab) 650 mg PO Q6HR PRN PRN Reason: Mild Pain or Fever > 100.5 Alprazolam (Alprazolam 0.5 Mg Tab) 0.5 mg PO TID [facility] Last Admin: 01/31/25 20:21 Dose: 0.5 mg Aripiprazole (Aripiprazole 15 Mg Tab) 15 mg PO DAILY [facility] Last Admin: 01/31/25 08:51 Dose: 15 mg Calcium Carbonate/Glycine (Calcium Carbonate 500 Mg Chewable) 1,000 mg PO QID PRN PRN Reason: Heartburn Last Admin: 01/30/25 15:13 Dose: 1,000 mg Citalopram Hydrobromide (Citalopram Hydrobromide 20 Mg Tab) 60 mg PO DAILY [facility] Last Admin: 01/31/25 08:52 Dose: 60 mg Cyclobenzaprine HCl (Cyclobenzaprine 10 Mg Tab) 10 mg PO TID PRN PRN Reason: Muscle Spasm Folic Acid (Folic Acid 1 Mg Tab) 1 mg PO DAILY [facility] Last Admin: 01/31/25 08:52 Dose: 1 mg Hydromorphone HCl (Hydromorphone 1 Mg/Ml 1 Ml Syringe) 1 mg IVP Q3HR PRN PRN Reason: Severe Pain (Scale 7 to 10) Last Admin: 01/31/25 09:16 Dose: 1 mg Hydromorphone HCl (Hydromorphone 0.5 Mg/0.5 Ml Syringe) 0.5 mg IVP Q3HR PRN PRN Reason: Moderate Pain (Scale 4 to 6) Last Admin: 01/31/25 05:53 Dose: 0.5 mg Lactated Ringer's (Lactated Ringers) 1,000 mls @ 100 mls/hr IV .Q10H [facility] Last Admin: 01/31/25 20:22 Dose: 100 mls/hr Vancomycin HCl 2,000 mg/ (Sodium Chloride) 500 mls @ 167 mls/hr IVPB Q16H [facility] Last Admin: 01/31/25 20:21 Dose: 167 mls/hr Ampicillin Sodium/Sulbactam (Sodium 3 gm/ Sodium Chloride) 100 mls @ 200 mls/hr IVPB Q6HR [facility]; Protocol Last Admin: 01/31/25 17:39 Dose: 200 mls/hr Ketorolac Tromethamine (Ketorolac 15 Mg/Ml 1 Ml Vial) 15 mg IVP Q6HR PRN PRN Reason: Moderate Pain (Scale 4 to 6) Stop: 02/02/25 11:25 Last Admin: 01/31/25 20:25 Dose: 15 mg Leucovorin Calcium (Leucovorin 5 Mg Tab) 5 mg PO Q8H [facility] Last Admin: 01/31/25 20:21 Dose: 5 mg Losartan Potassium (Losartan 50 Mg Tab) 50 mg PO BID [facility] Last Admin: 01/31/25 20:21 Dose: Not Given Meloxicam (Meloxicam 7.5 Mg Tab) 15 mg PO DAILY [facility] Last Admin: 01/31/25 08:52 Dose: 15 mg Naloxone HCl (Naloxone 0.4 Mg/Ml 1 Ml Vial) 0.2 mg IV Q2M PRN PRN Reason: Opioid Reversal Ondansetron HCl (Ondansetron 4 Mg/2 Ml Vial) 4 mg IVP Q8HR PRN PRN Reason: Nausea And Vomiting Pregabalin (Pregabalin 75 Mg Cap) 150 mg PO BID [facility] Last Admin: 01/31/25 20:21 Dose: 150 mg Sodium Bicarbonate (Salt And Soda Mouthwash 1,000 Ml) 5 ml PO 5XD [facility] Last Admin: 01/31/25 20:21 Dose: 5 ml Social history: Lives with her . Smokes a pack a day. Physical examination: VITAL SIGNS: 99.4, 84, 17, 92 x 60, 95% room GENERAL: BMI 50.5, laying in bed awake. EYES: Pupils equal. Conjunctiva juan ramon l. HEENT: External appearance of nose and ears normal, oral cavity dried blood along the mucocutaneous junction and corner of the mouth. l. NECK: JVD not raised; masses not palpable. HEART: First and second heart sounds are normal; no edema. LUNGS: Respiratory rate normal; decreased breath sound. ABDOMEN: Soft, nontender, liver spleen not palpable, no masses palpable. PSYCH: [Alert and oriented x3; mood and affect anxious. MUSCULOSKELETAL:No Clubbing/cyanosis;muscles-grossly intact. Elongated nails, dirty underneath DERMATOLOGICAL: Patient examined in presence of nurse shoe repairman Ana M-January 31. Area of redness upper part inside of the thigh. With superficial deroofing of bed. Appears to be possible fungal infection in the groin area. There is also breakdown and cellulitic changes very tender in the abdominal apron fold. With breakdown of skin. Areas of scratch berkley also in the upper abdomen. Very tender raw moist INVESTIGATIONS, reviewed in the clinical context: CT abdomen pelvis: Suggestion of mild nodularity of the liver surface raising the concern for cirrhosis. Spleen, upper limit of normal in size. Ultrasound abdomen: Liver 19.1 cm. Gallbladder: Bile duct 1.07 cm. Negative Choi sign Iron 41 TIBC 200% saturation 20.5 transferrin 143 ferritin 616 ammonia 9 January 30, 2025: White count 0.92 hemoglobin 9.1 platelets 48 sodium 136 potassium 3.2 creatinine 0.89 total bilirubin 1.8 AST 48 ALT 37 Assessment plan: - Acute secondary severe cellulitis/mucositis primarily affecting the lips, bilateral upper thigh, groin area, perineum. Also present in the skin fold in the lower abdomen. Very tender. Moist and weeping. Possibly precipitated by underlying intertriginous fungal infection and made worse by immunosuppression: Slow to respond IV vancomycin. IV Unasyn local wound care. ID and wound care team following Family reminded to bring in nail clippers - Pancytopenia, from methotrexate, possible toxicity Hold methotrexate. Hematology following - Chronic rheumatoid arthritis Continue pain medications - Depression Celexa. Abilify. - Chronic nicotine dependence, cigarette smoker Nicotine patch - Anxiety Xanax - Essential hypertension Cozaar - Morbid obesity BMI 50.5 Weight loss measures, outpatient Continue current medication treatment plan. Follow-up. Past Medical History Past Medical History: Hypertension History of Any Multi-Drug Resistant Organisms: None Reported Past Surgical History: Section, Hysterectomy, Tonsillectomy Smoking Status: Current every day smoker
[2025-01-31] MEDS: ACETAMINOPHEN TAB 325 MG TAB PO PRN (22:53)
[2025-02-01 05:30] LABS: HCT 20.2 % (37.2-46.3); MCH 35.1 pg (27.0-32.0); MCHC 33.7 g/dL (32.0-37.0); MCV 104.1 fL (80.0-97.0); Mean Platelet Volume 9.9 fL (9.5-12.2); RBC 1.94 10*6/uL (4.10-5.20); RDW 14.5 % (11.5-14.5)
[2025-02-01 05:43] LABS: WBC 0.84 10*3/uL (4.50-10.00)
[2025-02-01 05:45] LABS: HGB 6.8 g/dL (12.0-15.0); Platelet Count 22 10*3/uL (140-440)
[2025-02-01 05:50] LABS: ALT 46 U/L (4-34); AST 60 U/L (14-36); African American GFR (CKD) >90 (>60 ml/min/1.73 sqM); Albumin 2.5 g/dL (3.5-5.0); Alkaline Phosphatase 91 U/L (38-126); Anion Gap 2 mmol/L; Blood Urea Nitrogen 13 mg/dL (7-17); Calcium 7.9 mg/dL (8.4-10.2); Carbon Dioxide 25 mmol/L (22-30); Chloride 109 mmol/L (98-107); Glucose 84 mg/dL (74-99); Non-African American GFR(CKD) 88 (>60 ml/min/1.73 sqM); Potassium 3.8 mmol/L (3.5-5.1); Sodium 136 mmol/L (137-145); Total Bilirubin 0.8 mg/dL (0.2-1.3); Total Protein 5.1 g/dL (6.3-8.2)
[2025-02-01 06:29] LABS: Anisocytosis (M) Present; Polychromasia Present
--- NOTE | 2025-02-01 09:59 | P.PN ---
Subjective Progress Note Date: 02/01/25 Principal diagnosis: Reason for follow-up is abdominal wall wound and cellulitis Patient is a 49-year-old female with a past medical history significant for hypertension anxiety depression current everyday smoker presenting to the hospital for evaluation of lower abdominal fold rash that apparently been going on for the last 3 to 4 days before presentation to the [facility]. On today's evaluation that is 02/01/2025, Patient is afebrile patient is currently on room air and denies having any shortness of breath, the patient denies any chest pain or cough, the patient denies any nausea vomiting did not have any abdominal pain and no diarrhea. Patient white count is 0.84 creatinine 0.79 liver enzymes improving wound culture negative so far Objective - Vital Signs Vital signs: Vital Signs Temp 98.3 F 02/01/25 09:20 Pulse 78 02/01/25 09:20 Resp 15 02/01/25 09:20 BP 91/58 02/01/25 09:20 Pulse Ox 95 02/01/25 09:20 FiO2 Intake & Output 01/31/25 02/01/25 02/01/25 18:59 06:59 18:59 Intake Total 50 1800 0 Balance 50 1800 0 Intake: Intake, IV Titration 1800 Amount Ampicillin-Sulbactam 3 gm 200 In Sodium Chloride 0.9% 100 ml @ 200 mls/hr IVPB Q6HR [facility] Rx#:[id number] Lactated Ringers 1,000 ml 1100 @ 100 mls/hr IV .Q10H [facility] Rx#:[id number] Vancomycin 2,000 mg In 500 Sodium Chloride 0.9% 500 ml 500 ml @ 167 mls/hr IVPB Q16H [facility] Rx#: [id number] Oral 50 Blood Product 0 Unit 0 Other: # Voids 1 - Exam GENERAL DESCRIPTION: Middle-age female lying in bed in no distress RESPIRATORY SYSTEM: Unlabored breathing , decreased breath sounds at bases HEART: S1 S2 regular rate and rhythm , ABDOMEN: Soft , no tenderness Extensive ulceration to bilateral groin area suggestive of cutaneous candidiasis EXTREMITIES: No edema feet - Labs CBC & Chem 7: 02/01/25 05:16 02/01/25 05:16 Labs: Abnormal Lab Results - Last 24 Hours (Table) 01/31/25 01/31/25 02/01/25 Range/Units 11:22 11:22 05:16 WBC 0.84 L* (4.50-10.00) 10*3/uL RBC 1.94 L (4.10-5.20) 10*6/uL Hgb 6.8 L* D (12.0-15.0) g/dL Hct 20.2 L (37.2-46.3) % MCV 104.1 H (80.0-97.0) fL MCH 35.1 H (27.0-32.0) pg Plt Count 22 L D (140-440) 10*3/uL Sodium (137-145) mmol/L Chloride (98-107) mmol/L Calcium (8.4-10.2) mg/dL Iron 41 L (50-170) UG/DL TIBC 200 L (228-460) UG/DL Transferrin 143.0 L (204.0-354.0) mg/dL Ferritin 616.0 H (10.0-291.0) ng/mL AST (14-36) U/L ALT (4-34) U/L Total Protein (6.3-8.2) g/dL Total Protein (PEP) 5.5 L (6.2-8.2) g/dL Albumin (3.5-5.0) g/dL Rheumatoid Factor 215 H (0-15) IU/mL Crossmatch 02/01/25 02/01/25 Range/Units 05:16 06:37 WBC (4.50-10.00) 10*3/uL RBC (4.10-5.20) 10*6/uL Hgb (12.0-15.0) g/dL Hct (37.2-46.3) % MCV (80.0-97.0) fL MCH (27.0-32.0) pg Plt Count (140-440) 10*3/uL Sodium 136 L (137-145) mmol/L Chloride 109 H (98-107) mmol/L Calcium 7.9 L (8.4-10.2) mg/dL Iron (50-170) UG/DL TIBC (228-460) UG/DL Transferrin (204.0-354.0) mg/dL Ferritin (10.0-291.0) ng/mL AST 60 H (14-36) U/L ALT 46 H (4-34) U/L Total Protein 5.1 L (6.3-8.2) g/dL Total Protein (PEP) (6.2-8.2) g/dL Albumin 2.5 L (3.5-5.0) g/dL Rheumatoid Factor (0-15) IU/mL Crossmatch See Detail Microbiology - Last 24 Hours (Table) 01/30/25 10:24 Gram Stain - Final Groin Wound Culture - Final 01/30/25 10:41 Blood Culture - Preliminary Blood Assessment and Plan (1) Open abdominal wall wound Current Visit: Yes Status: Acute Code(s): S31.109A - UNSP OPN WND ABD WALL, UNSP Q W/O PENET PERIT CAV, INIT SNOMED Code(s): 141998100 (2) Abdominal wall cellulitis Current Visit: Yes Status: Acute Code(s): L03.311 - CELLULITIS OF ABDOMINAL WALL SNOMED Code(s): 99601842 (3) Elevated liver enzymes Current Visit: Yes Status: Acute Priority: High Code(s): R74.8 - ABNORMAL LEVELS OF OTHER SERUM ENZYMES SNOMED Code(s): 457115721 Plan: 1patient presented to the hospital with painful abdominal wall rash in this patient who did have a superficial ulceration in the abdominal fold concerning for abdominal wall wound and secondary cellulitis likely from gram-positive skin martha less likely gram-negative infection. 2patient with elevated liver enzymes no significant tenderness to right upper quadrant area, CT and ultrasound did not show any acute abnormality to the liver or gallbladder area 3local culture has been obtained which are negative so far 4patient currently being treated with Unasyn however I will discontinue vancomycin as no MRSA 5we will start the patient with nystatin powder to bilateral groin area discontinue Triad cream Dictation was produced using [employer] dictation software. please excuse any grammatical, word or spelling errors. Time with Patient: Less than 30
[2025-02-01] MEDS: NYSTATIN 100,000 UNIT/GM POWD 15 GM TOPICAL SCH (11:14)
[2025-02-01] MEDS: CLOTRIMAZOLE 1% CREAM 30 GM TUBE TOPICAL SCH (11:14)
[2025-02-01 13:18] LABS: Appearance,Urine Cloudy (Clear); Bilirubin,Urine Negative (Negative); Blood,Urine Moderate (Negative); Color,Urine Yellow; Glucose,Urine (UA) Negative (Negative); Ketones,Urine Negative (Negative); Leukocyte Esterase,Urine Negative (Negative); Nitrite,Urine Negative (Negative); PH, Urine 6.5 (5.0-8.0); Protein,Urine Negative (Negative); RBC,Urine 2 /hpf (0-5); Specific Gravity,Urine 1.026 (1.001-1.035); WBC,Urine 3 /hpf (0-5)
[2025-02-01 13:45] LABS: Free Kappa Lt Chain Qnt, Serum 5.78 mg/dL (0.33-1.94); Free Lambda Lt Chain Qnt, Seru 5.89 mg/dL (0.57-2.63)
--- NOTE | 2025-02-01 13:45 | P.PN ---
Progress Note - Text Progress Note Date: 02/01/25 Chief Complaint: Severe cellulitis 49-year-old patient follows Dr. John Galeano. Chronic medical conditions include anxiety, essential hypertension, depression, muscle spasms, chronic pain, rheumatoid arthritis. About 2 days ago patient noted increasing redness in the lower abdomen. Progressed to get much worse. Breakdown of skin under the skin fold. And also between the thighs. Patient has been scratching. Also she developed superficial bleeding on the lips. Slight soreness in the mouth. Denies any fever and chills. Patient did confirm that she has been scratching. She also has a dog at home. Has received all his vaccination. Patient denies any fever or chills. She is extremely painful in the groin area. Superficial breakdown of skin 2. January 31: Patient's pain is actually better. Did ambulate. Patient's and daughter at the bedside. Nicotine patch being ordered. Patient placed on IV Unasyn. And IV vancomycin per ID. IV fluids. CT abdomen pelvis showed evidence of possible cirrhosis. Tolerating diet. Patient seen by hematology. Workup in place. February 01: Local dressing continues. Antifungal has been added by ID. Vancomycin has been discontinued. Patient continues IV Unasyn. Discussed with the patient and daughter at the bedside. Patient did drop her hemoglobin to 6.8 bleeding from the cellulitic sites. Unit of blood ordered Leucovorin was started yesterday by hematology for probable methotrexate toxicity. Given low platelets will DC Mobic and ketorolac. Add PPI for prophylaxis Active Medications Acetaminophen (Acetaminophen Tab 325 Mg Tab) 650 mg PO Q6HR PRN PRN Reason: Mild Pain or Fever > 100.5 Last Admin: 01/31/25 22:53 Dose: 650 mg Alprazolam (Alprazolam 0.5 Mg Tab) 0.5 mg PO TID [facility] Last Admin: 02/01/25 08:19 Dose: 0.5 mg Aripiprazole (Aripiprazole 15 Mg Tab) 15 mg PO DAILY [facility] Last Admin: 02/01/25 08:19 Dose: 15 mg Calcium Carbonate/Glycine (Calcium Carbonate 500 Mg Chewable) 1,000 mg PO QID PRN PRN Reason: Heartburn Last Admin: 02/01/25 11:50 Dose: 1,000 mg Citalopram Hydrobromide (Citalopram Hydrobromide 20 Mg Tab) 60 mg PO DAILY [facility] Last Admin: 02/01/25 08:19 Dose: 60 mg Clotrimazole (Clotrimazole 1% Cream 30 Gm Tube) 1 applic TOPICAL DAILY [facility]; Protocol Last Admin: 02/01/25 11:14 Dose: 1 applic Cyclobenzaprine HCl (Cyclobenzaprine 10 Mg Tab) 10 mg PO TID PRN PRN Reason: Muscle Spasm Folic Acid (Folic Acid 1 Mg Tab) 1 mg PO DAILY [facility] Last Admin: 02/01/25 08:19 Dose: 1 mg Hydromorphone HCl (Hydromorphone 1 Mg/Ml 1 Ml Syringe) 1 mg IVP Q3HR PRN PRN Reason: Severe Pain (Scale 7 to 10) Last Admin: 01/31/25 09:16 Dose: 1 mg Hydromorphone HCl (Hydromorphone 0.5 Mg/0.5 Ml Syringe) 0.5 mg IVP Q3HR PRN PRN Reason: Moderate Pain (Scale 4 to 6) Last Admin: 01/31/25 05:53 Dose: 0.5 mg Lactated Ringer's (Lactated Ringers) 1,000 mls @ 100 mls/hr IV .Q10H [facility] Last Admin: 02/01/25 11:52 Dose: 100 mls/hr Ampicillin Sodium/Sulbactam (Sodium 3 gm/ Sodium Chloride) 100 mls @ 200 mls/hr IVPB Q6HR [facility]; Protocol Last Admin: 02/01/25 11:51 Dose: 200 mls/hr Ketorolac Tromethamine (Ketorolac 15 Mg/Ml 1 Ml Vial) 15 mg IVP Q6HR PRN PRN Reason: Moderate Pain (Scale 4 to 6) Stop: 02/02/25 11:25 Last Admin: 02/01/25 02:48 Dose: 15 mg Leucovorin Calcium (Leucovorin 5 Mg Tab) 5 mg PO Q8H [facility] Last Admin: 02/01/25 11:51 Dose: 5 mg Losartan Potassium (Losartan 50 Mg Tab) 50 mg PO BID [facility] Last Admin: 02/01/25 07:31 Dose: Not Given Meloxicam (Meloxicam 7.5 Mg Tab) 15 mg PO DAILY [facility] Last Admin: 02/01/25 08:19 Dose: 15 mg Naloxone HCl (Naloxone 0.4 Mg/Ml 1 Ml Vial) 0.2 mg IV Q2M PRN PRN Reason: Opioid Reversal Nystatin (Nystatin 100,000 Unit/Gm Powd 15 Gm) 1 applic TOPICAL BID [facility]; Protocol Last Admin: 02/01/25 11:14 Dose: 1 applic Ondansetron HCl (Ondansetron 4 Mg/2 Ml Vial) 4 mg IVP Q8HR PRN PRN Reason: Nausea And Vomiting Pregabalin (Pregabalin 75 Mg Cap) 150 mg PO BID [facility] Last Admin: 02/01/25 08:19 Dose: 150 mg Sodium Bicarbonate (Salt And Soda Mouthwash 1,000 Ml) 5 ml PO 5XD [facility] Last Admin: 02/01/25 11:14 Dose: 5 ml Social history: Lives with her . Smokes a pack a day. Physical examination: VITAL SIGNS: 98, 74, 18, 101 x 68, 95% room air GENERAL: BMI 50.5, laying in bed awake. EYES: Pupils equal. Conjunctiva juan ramon l. HEENT: External appearance of nose and ears normal, oral cavity dried blood along the mucocutaneous junction and corner of the mouth. l. NECK: JVD not raised; masses not palpable. HEART: First and second heart sounds are normal; no edema. LUNGS: Respiratory rate normal; decreased breath sound. ABDOMEN: Soft, nontender, liver spleen not palpable, no masses palpable. PSYCH: [Alert and oriented x3; mood and affect anxious. MUSCULOSKELETAL:No Clubbing/cyanosis;muscles-grossly intact. Elongated nails, dirty underneath DERMATOLOGICAL: Patient examined in presence of nurse sanforizer Ana M-January 31. Area of redness upper part inside of the thigh. With superficial deroofing of bed. Appears to be possible fungal infection in the groin area. There is also breakdown and cellulitic changes very tender in the abdominal apron fold. With breakdown of skin. Areas of scratch berkley also in the upper abdomen. Very tender raw moist INVESTIGATIONS, reviewed in the clinical context: Wound culture: Negative January 2: White count 0.8 hemoglobin 6.8 platelets 22 potassium 3.8 creatinine 0[address] abdomen pelvis: Suggestion of mild nodularity of the liver surface raising the concern for cirrhosis. Spleen, upper limit of normal in size. Ultrasound abdomen: Liver 19.1 cm. Gallbladder: Bile duct 1.07 cm. Negative Choi sign Iron 41 TIBC 200% saturation 20.5 transferrin 143 ferritin 616 ammonia 9 January 30, 2025: White count 0.92 hemoglobin 9.1 platelets 48 sodium 136 potassium 3.2 creatinine 0.89 total bilirubin 1.8 AST 48 ALT 37 Assessment plan: - Acute secondary severe cellulitis/mucositis primarily affecting the lips, bilateral upper thigh, groin area, perineum. Also present in the skin fold in the lower abdomen. Very tender. Moist and weeping. Possibly precipitated by underlying intertriginous fungal infection and made worse by immunosuppression: Slow to respond IV vancomycin discontinued. IV Unasyn.. Topical nystatin powder. Local wound care. ID and wound care team following - Pancytopenia, from methotrexate, possible toxicity: Slight worsening Hold methotrexate. Hematology following - Probable methotrexate toxicity Started on leucovorin January 31 - Chronic rheumatoid arthritis Continue pain medications - Depression Celexa. Abilify. - Chronic nicotine dependence, cigarette smoker Nicotine patch - Anxiety Xanax - Essential hypertension Cozaar - Morbid obesity BMI 50.5 Weight loss measures, outpatient Vanco discontinued. Nystatin powder added. DC NSAIDs. Past Medical History Past Medical History: Hypertension History of Any Multi-Drug Resistant Organisms: None Reported Past Surgical History: Section, Hysterectomy, Tonsillectomy Smoking Status: Current every day smoker
[2025-02-01] MEDS: PANTOPRAZOLE 40 MG TABLET PO SCH (14:09)
--- NOTE | 2025-02-01 16:56 | CT ---
EXAMINATION TYPE: CT brain wo/w con DATE OF EXAM: 02/01/2025 4:41 PM COMPARISON: None. CLINICAL INDICATION: Female, 49 years old with history of confusion, falls; CONFUSION and falls TECHNIQUE: Axial CT images were obtained with coronal and sagittal reformats created and reviewed. Contrast used:100 ml mL of Isovue 300 without and with IV Contrast, Oral contrast used: none. CT DLP: 2250.4 mGycm, Automated exposure control for dose reduction was used. FINDINGS: Extra-axial spaces: No abnormal extra-axial fluid collections. Ventricular system: Within normal limits Cerebral parenchyma: No acute intraparenchymal hemorrhage or mass effect. The traylro-white junction is well differentiated. No abnormal enhancement is seen after the administration of intravenous contras t. Cerebellum: Unremarkable. Mass effect: No evidence of midline shift. Intracranial vasculature: unremarkable Soft tissues: Normal. Calvarium/osseous structures: No depressed skull fracture. Protuberance which is well ossified off th e skull with nonaggressive features on the left posterior aspect measuring up to 10 mm. Paranasal sinuses and mastoid air cells: Clear. Visualized orbits: Orbital contents are intact. IMPRESSION: No acute intracranial process. [facility], , 02/01/2025 4:54 PM
--- NOTE | 2025-02-01 17:32 | P.PN ---
Subjective Progress Note Date: 02/01/25 No acute events overnight. Pt mentation improved today. Hgb 6.8. 1 unit PRBCs ordered. Plt 22, WBC 0.84 Objective - Vital Signs Vital signs: Vital Signs Temp 98.6 F 02/01/25 16:54 Pulse 107 H 02/01/25 16:54 Resp 14 02/01/25 16:54 BP 149/83 02/01/25 16:54 Pulse Ox 96 02/01/25 16:54 FiO2 Intake & Output 01/31/25 02/01/25 02/01/25 18:59 06:59 18:59 Intake Total 50 1800 460 Balance 50 1800 460 Intake: Intake, IV Titration 1800 Amount Ampicillin-Sulbactam 3 gm 200 In Sodium Chloride 0.9% 100 ml @ 200 mls/hr IVPB Q6HR JOSE RAUL Rx#:[id number] Lactated Ringers 1,000 ml 1100 @ 100 mls/hr IV .Q10H JOSE RAUL Rx#:[id number] Vancomycin 2,000 mg In 500 Sodium Chloride 0.9% 500 ml 500 ml @ 167 mls/hr IVPB Q16H JOSE RAUL Rx#: [id number] Oral 50 150 Blood Product 310 Rc As-1 Unit 310 [id number] Other: # Voids 1 1 - Constitutional General appearance: Present: no acute distress - EENT Eyes: Present: anicteric sclerae, EOMI - Respiratory Details: breathing is even and unlabored - Cardiovascular Details: skin warm and dry - Gastrointestinal General gastrointestinal: Absent: tenderness - Integumentary Integumentary: Present: pale. Absent: cyanotic - Musculoskeletal Musculoskeletal: Present: generalized weakness - Psychiatric Psychiatric: Present: A&O x's 3 - Labs CBC & Chem 7: 02/01/25 05:16 02/01/25 05:16 Labs: Abnormal Lab Results - Last 24 Hours (Table) 01/31/25 01/31/25 02/01/25 Range/Units 11:22 11:22 05:16 WBC 0.84 L* (4.50-10.00) 10*3/uL RBC 1.94 L (4.10-5.20) 10*6/uL Hgb 6.8 L* D (12.0-15.0) g/dL Hct 20.2 L (37.2-46.3) % MCV 104.1 H (80.0-97.0) fL MCH 35.1 H (27.0-32.0) pg Plt Count 22 L D (140-440) 10*3/uL Sodium (137-145) mmol/L Chloride (98-107) mmol/L Calcium (8.4-10.2) mg/dL AST (14-36) U/L ALT (4-34) U/L Total Protein (6.3-8.2) g/dL Albumin (3.5-5.0) g/dL RBC Folate 831 H (280 - 791) ng/mL Urine Appearance (Clear) Urine Blood (Negative) Free [place] LC, Quant 5.78 H (0.33-1.94) mg/dL Free Lambda LC, Quant 5.89 H (0.57-2.63) mg/dL Crossmatch 02/01/25 02/01/25 02/01/25 Range/Units 05:16 06:37 10:41 WBC (4.50-10.00) 10*3/uL RBC (4.10-5.20) 10*6/uL Hgb (12.0-15.0) g/dL Hct (37.2-46.3) % MCV (80.0-97.0) fL MCH (27.0-32.0) pg Plt Count (140-440) 10*3/uL Sodium 136 L (137-145) mmol/L Chloride 109 H (98-107) mmol/L Calcium 7.9 L (8.4-10.2) mg/dL AST 60 H (14-36) U/L ALT 46 H (4-34) U/L Total Protein 5.1 L (6.3-8.2) g/dL Albumin 2.5 L (3.5-5.0) g/dL RBC Folate (280 - 791) ng/mL Urine Appearance Cloudy H (Clear) Urine Blood Moderate H (Negative) Free [place] LC, Quant (0.33-1.94) mg/dL Free Lambda LC, Quant (0.57-2.63) mg/dL Crossmatch See Detail Microbiology - Last 24 Hours (Table) 01/30/25 10:41 Blood Culture - Preliminary Blood 01/30/25 10:24 Gram Stain - Final Groin Wound Culture - Final - Imaging and Cardiology CT scan - abdomen: report reviewed CT scan - pelvis: report reviewed Assessment and Plan (1) Pancytopenia Current Visit: Yes Status: Acute Priority: High Code(s): D61.818 - OTHER PANCYTOPENIA SNOMED Code(s): 260392591 (2) Rheumatoid arthritis Current Visit: Yes Status: Acute Priority: High Code(s): M06.9 - RHEUMATOID ARTHRITIS, UNSPECIFIED SNOMED Code(s): 58904798 (3) Elevated liver enzymes Current Visit: Yes Status: Acute Priority: High Code(s): R74.8 - ABNORMAL LEVELS OF OTHER SERUM ENZYMES SNOMED Code(s): 120356838 (4) Non-pressure chronic ulcer of skin of other sites limited to breakdown of skin Current Visit: Yes Status: Acute Priority: High Code(s): L98.491 - NON-PRS CHRONIC ULCER SKIN/ SITES LIMITED TO BRKDWN SKIN SNOMED Code(s): 28118879 Plan: Abd pain, hyperbilirubinemia, transaminitis: Presented to the emergency room for complaints of abdominal pain and rash. Per patient and significant other at bedside patient been having abdominal pain for the last month Denies nausea vomiting diarrhea. Denies fever and chills. -Bilirubin elevated at 1.8. AST 48, ALT 37, ALP 80. Ammonia < 9 -CT AP Showing mild pleural-parenchymal scarring in the right lung base. Liver morphology suggest possibility of cirrhosis. No acute changes within the ab domen or pelvis. Bilirubin normal today at 0.8. AST 60, ALT 46 Rheumatoid arthritis: Follows with Dr. Silverio. On methotrexate weekly. Believes last dose was last . Denies any changes to dosing. Denies recent abx or steroid use -Concern for possible MTX toxicity -Methotrexate level pending -Hold MTX -Leucovorin started Rash of panus, mucositis Extensive rash with desquamation of panus. Patient also reporting lips are sore, chapped and bleeding. -IV abx started -BC negative thus far. Wound culture negative -ID and wound care following -Possibly r/t MTX toxicity -Salt and soda rinses, and oral care ordered Confusion: Per family at bedside, has been intermittent for a while, but progressing over the last 1-2 months -Ammonia level <9 -UA with reflex ordered, pending -MRI brain ordered to further evaluate. However, pt declined test due to claustrophobia. Offered sedative prior to exam and pt still refused testing. Will obtain CT brain w/ contrast Pancytopenia: -CBC showing WBC 0.92, hemoglobin 9.1, platelets 48,000. Upon review of EMR CBC from April 2024 showed WBC 7.3, hemoglobin 14.3, platelets 142,000 -Pancytopenia workup and CMV ordered to r/o other etiologies -May be r/t MTX toxicity -No G-CSF at this time, until other etiologies are ruled out -No nutritional deficiencies noted. JOLLY negative. RF elevated at 215. Immunoglobulins WNL. Remaining workup pending -Hgb today 6.8, 1 unit PRBCs ordered. Plt 22,000, WBC 0.84 -Continue to monitor CBC, supportive transfusion as needed Doctor attests: I performed a history and physical examination of this patient, developed impression and plan of care. Discussed with dictator. I agree with dictators note, documented as a scribe.
[2025-02-01] MEDS: LACTATED RINGERS 500 ML IV ONE (20:53)
[2025-02-02 00:44] LABS: Methotrexate <0.05 umol/L
[2025-02-02 01:00] LABS: HCT 23.8 % (37.2-46.3); MCH 34.4 pg (27.0-32.0); MCHC 34.9 g/dL (32.0-37.0); Mean Platelet Volume 10.9 fL (9.5-12.2); RBC 2.41 10*6/uL (4.10-5.20); RDW 15.9 % (11.5-14.5)
[2025-02-02 01:08] LABS: WBC 0.74 10*3/uL (4.50-10.00)
[2025-02-02 01:09] LABS: HGB 8.3 g/dL (12.0-15.0)
[2025-02-02 01:11] LABS: Platelet Count 18 10*3/uL (140-440)
[2025-02-02] MEDS ORDERED: VANCOMYCIN TROUGH DUE 1 EACH MISC MISCELLANE ONE (05:00)
[2025-02-02 07:40] LABS: Basophils # (A) 0.01 10*3/uL (0.00-0.10); Basophils % (A) 1.6 %; Eosinophils # (A) 0.06 10*3/uL (0.04-0.35); Eosinophils % (A) 9.7 %; HCT 24.8 % (37.2-46.3); HGB 8.2 g/dL (12.0-15.0); Lymphocytes # (A) 0.46 10*3/uL (0.90-5.00); Lymphocytes % (A) 74.2 %; MCH 34.6 pg (27.0-32.0); MCHC 33.1 g/dL (32.0-37.0); Mean Platelet Volume 10.9 fL (9.5-12.2); Monocytes # (A) 0.01 10*3/uL (0.20-1.00); Monocytes % (A) 1.6 %; Neutrophils % (A) 12.9 %; Platelet Count 22 10*3/uL (140-440); RBC 2.37 10*6/uL (4.10-5.20); RDW 16.1 % (11.5-14.5)
[2025-02-02 07:50] LABS: MCV 98.8 fL (80.0-97.0)
[2025-02-02 07:56] LABS: African American GFR (CKD) >90 (>60 ml/min/1.73 sqM); Anion Gap 4 mmol/L; Blood Urea Nitrogen 9 mg/dL (7-17); Calcium 7.8 mg/dL (8.4-10.2); Carbon Dioxide 23 mmol/L (22-30); Chloride 110 mmol/L (98-107); Glucose 75 mg/dL (74-99); Non-African American GFR(CKD) >90 (>60 ml/min/1.73 sqM); Potassium 3.9 mmol/L (3.5-5.1); Sodium 137 mmol/L (137-145)
[2025-02-02 09:59] LABS: WBC 0.62 10*3/uL (4.50-10.00)
[2025-02-02 10:00] LABS: Neutrophils # (A) 0.08 10*3/uL (1.80-7.70)
[2025-02-02 10:01] LABS: MCV 104.6 fL (80.0-97.0)
[2025-02-02] MEDS: IPRATROPIUM-ALBUTEROL 3 ML NEB INHALATION SCH (15:22)
--- NOTE | 2025-02-02 19:11 | P.PN ---
Progress Note - Text Progress Note Date: 02/02/25 Chief Complaint: Severe cellulitis 49-year-old patient follows Dr. John Galeano. Chronic medical conditions include anxiety, essential hypertension, depression, muscle spasms, chronic pain, rheumatoid arthritis. About 2 days ago patient noted increasing redness in the lower abdomen. Progressed to get much worse. Breakdown of skin under the skin fold. And also between the thighs. Patient has been scratching. Also she developed superficial bleeding on the lips. Slight soreness in the mouth. Denies any fever and chills. Patient did confirm that she has been scratching. She also has a dog at home. Has received all his vaccination. Patient denies any fever or chills. She is extremely painful in the groin area. Superficial breakdown of skin 2. January 1: Patient's pain is actually better. Did ambulate. Patient's and daughter at the bedside. Nicotine patch being ordered. Patient placed on IV Unasyn. And IV vancomycin per ID. IV fluids. CT abdomen pelvis showed evidence of possible cirrhosis. Tolerating diet. Patient seen by hematology. Workup in place. February 01: Local dressing continues. Antifungal has been added by ID. Vancomycin has been discontinued. Patient continues IV Unasyn. Discussed with the patient and daughter at the bedside. Patient did drop her hemoglobin to 6.8 bleeding from the cellulitic sites. Unit of blood ordered Leucovorin was started yesterday by hematology for probable methotrexate toxicity. Given low platelets will DC Mobic and ketorolac. Add PPI for prophylaxis January 3: Last night patient became hypotensive. Had to be given fluids. Then patient became tachypneic and some wheezing. Pulmonary was consulted. Janes added. Chesaning of COPD flareup. Patient is a smoker. Patient remains pancytopenic. Remains on leucovorin. Also on IV Unasyn. Discussed with and patient. Active Medications Acetaminophen (Acetaminophen Tab 325 Mg Tab) 650 mg PO Q6HR PRN PRN Reason: Mild Pain or Fever > 100.5 Last Admin: 02/02/25 11:44 Dose: 650 mg Albuterol/Ipratropium (Ipratropium-Albuterol 3 Ml Neb) 3 ml INHALATION RT-QID JOSE RAUL Last Admin: 02/02/25 15:22 Dose: 3 ml Alprazolam (Alprazolam 0.5 Mg Tab) 0.5 mg PO TID [facility] Last Admin: 02/02/25 16:20 Dose: 0.5 mg Aripiprazole (Aripiprazole 15 Mg Tab) 15 mg PO DAILY [facility] Last Admin: 02/02/25 08:34 Dose: 15 mg Calcium Carbonate/Glycine (Calcium Carbonate 500 Mg Chewable) 1,000 mg PO QID PRN PRN Reason: Heartburn Last Admin: 02/01/25 11:50 Dose: 1,000 mg Citalopram Hydrobromide (Citalopram Hydrobromide 20 Mg Tab) 60 mg PO DAILY [facility] Last Admin: 02/02/25 08:33 Dose: 60 mg Clotrimazole (Clotrimazole 1% Cream 30 Gm Tube) 1 applic TOPICAL DAILY [facility]; Protocol Last Admin: 02/02/25 08:35 Dose: 1 applic Cyclobenzaprine HCl (Cyclobenzaprine 10 Mg Tab) 10 mg PO TID PRN PRN Reason: Muscle Spasm Folic Acid (Folic Acid 1 Mg Tab) 1 mg PO DAILY [facility] Last Admin: 02/02/25 08:33 Dose: 1 mg Hydromorphone HCl (Hydromorphone 1 Mg/Ml 1 Ml Syringe) 1 mg IVP Q3HR PRN PRN Reason: Severe Pain (Scale 7 to 10) Last Admin: 02/02/25 05:02 Dose: 1 mg Hydromorphone HCl (Hydromorphone 0.5 Mg/0.5 Ml Syringe) 0.5 mg IVP Q3HR PRN PRN Reason: Moderate Pain (Scale 4 to 6) Last Admin: 02/02/25 14:35 Dose: 0.5 mg Lactated Ringer's (Lactated Ringers) 1,000 mls @ 100 mls/hr IV .Q10H [facility] Last Admin: 02/02/25 06:45 Dose: 100 mls/hr Ampicillin Sodium/Sulbactam (Sodium 3 gm/ Sodium Chloride) 100 mls @ 200 mls/hr IVPB Q6HR [facility]; Protocol Last Admin: 02/02/25 18:14 Dose: 200 mls/hr Leucovorin Calcium (Leucovorin 5 Mg Tab) 5 mg PO Q8H [facility] Last Admin: 02/02/25 11:41 Dose: 5 mg Losartan Potassium (Losartan 50 Mg Tab) 50 mg PO BID [facility] Last Admin: 02/02/25 08:33 Dose: 50 mg Naloxone HCl (Naloxone 0.4 Mg/Ml 1 Ml Vial) 0.2 mg IV Q2M PRN PRN Reason: Opioid Reversal Nystatin (Nystatin 100,000 Unit/Gm Powd 15 Gm) 1 applic TOPICAL BID [facility]; Protocol Last Admin: 02/02/25 08:34 Dose: 1 applic Ondansetron HCl (Ondansetron 4 Mg/2 Ml Vial) 4 mg IVP Q8HR PRN PRN Reason: Nausea And Vomiting Pantoprazole Sodium (Pantoprazole 40 Mg Tablet) 40 mg PO AC-BID [facility] Last Admin: 02/02/25 16:21 Dose: 40 mg Pregabalin (Pregabalin 75 Mg Cap) 150 mg PO BID [facility] Last Admin: 02/02/25 08:33 Dose: 150 mg Sodium Bicarbonate (Salt And Soda Mouthwash 1,000 Ml) 5 ml PO 5XD [facility] Last Admin: 02/02/25 16:21 Dose: Not Given Social history: Lives with her . Smokes a pack a day. Physical examination: VITAL SIGNS: Afebrile, 86, 16, 91 x 59, 97% room air GENERAL: BMI 50.5, laying in bed awake. EYES: Pupils equal. Conjunctiva juan ramon l. HEENT: External appearance of nose and ears normal, oral cavity dried blood along the mucocutaneous junction and corner of the mouth. l. NECK: JVD not raised; masses not palpable. HEART: First and second heart sounds are normal; no edema. LUNGS: Respiratory rate increased l; decreased breath sound. Some wheezing ABDOMEN: Soft, nontender, liver spleen not palpable, no masses palpable. PSYCH: [Alert and oriented x3; mood and affect anxious. MUSCULOSKELETAL:No Clubbing/cyanosis;muscles-grossly intact. Elongated nails, dirty underneath DERMATOLOGICAL: Patient examined in presence of nurse superintendent maintenance Ana M-January 31. Area of redness upper part inside of the thigh. With superficial deroofing of bed. Appears to be possible fungal infection in the groin area. There is also breakdown and cellulitic changes very tender in the abdominal apron fold. With breakdown of skin. Areas of scratch berkley also in the upper abdomen. Very tender raw moist INVESTIGATIONS, reviewed in the clinical context: February 02: White count 0.6 hemoglobin 8.2 platelets 22 potassium 3.9 creatinine 0.66 lactic acid 0.9 Wound culture: Negative February 01: White count 0.8 hemoglobin 6.8 platelets 22 potassium 3.8 creatinine 0.[address] abdomen pelvis: Suggestion of mild nodularity of the liver surface raising the concern for cirrhosis. Spleen, upper limit of normal in size. Ultrasound abdomen: Liver 19.1 cm. Gallbladder: Bile duct 1.07 cm. Negative Choi sign Iron 41 TIBC 200% saturation 20.5 transferrin 143 ferritin 616 ammonia 9 January 30, 2025: White count 0.92 hemoglobin 9.1 platelets 48 sodium 136 potassium 3.2 creatinine 0.89 total bilirubin 1.8 AST 48 ALT 37 Assessment plan: - Acute secondary severe cellulitis/mucositis primarily affecting the lips, bilateral upper thigh, groin area, perineum. Also present in the skin fold in the lower abdomen. Very tender. Moist and weeping. Possibly precipitated by underlying intertriginous fungal infection and made worse by immunosuppression: Slow to respond IV vancomycin discontinued. IV Unasyn.. Topical nystatin powder. Local wound care. ID and wound care team following - Pancytopenia, from methotrexate, possible toxicity: Slow to respond Hold methotrexate. Hematology following - Probable methotrexate toxicity Started on leucovorin January 31 - Chronic rheumatoid arthritis Continue pain medications - Acute COPD exacerbation in a current smoker DuoNeb. 4 times daily. Add nebulized Pulmicort - Depression Celexa. Abilify. - Chronic nicotine dependence, cigarette smoker Nicotine patch - Anxiety Xanax - Acute hypotension: Combination of blood loss anemia and fluid loss from desquamating scale. From cellulitis new diagnosis Cozaar discontinued. IV fluid bolus was given. Followed by maintenance fluid. - Essential hypertension, blood pressure running low Cozaar discontinued - Morbid obesity BMI 50.5 Weight loss measures, outpatient - Full code Discussed with patient and . Past Medical History Past Medical History: Hypertension History of Any Multi-Drug Resistant Organisms: None Reported Past Surgical History: Section, Hysterectomy, Tonsillectomy Smoking Status: Current every day smoker
--- NOTE | 2025-02-02 19:33 | P.PN ---
Subjective Progress Note Date: 02/02/25 The patient looks, feels much better. She states that she would like to go home if possible. Afebrile. No nausea/vomiting/chills. Objective - Vital Signs Vital signs: Vital Signs Temp 98.6 F 02/01/25 20:00 Pulse 88 02/02/25 15:37 Resp 16 02/02/25 15:18 BP 87/57 02/02/25 18:34 Pulse Ox 97 02/02/25 15:18 FiO2 Intake & Output 02/02/25 02/02/25 02/03/25 06:59 18:59 06:59 Intake Total 1080 360 Balance 1080 360 Weight 117.5 kg Intake: Oral 1080 360 Other: # Voids 1 - Constitutional General appearance: Present: no acute distress - EENT EENT Comment(s): Improved mucositis of lips. Eyes: Present: EOMI ENT: Present: hearing grossly normal - Respiratory Respiratory: bilateral: CTA - Cardiovascular Rhythm: regular Heart sounds: normal: S1, S2 - Gastrointestinal General gastrointestinal: Present: soft - Integumentary Integumentary Comment(s): Extensive desquamation and superficial ulceration of lower abdomen - Neurologic Neurologic: Present: CNII-XII intact - Musculoskeletal Musculoskeletal: Present: generalized weakness, strength equal bilaterally - Psychiatric Psychiatric: Present: A&O x's 3, appropriate affect - Labs CBC & Chem 7: 02/02/25 06:36 02/02/25 06:36 Labs: Abnormal Lab Results - Last 24 Hours (Table) 02/01/25 02/02/25 02/02/25 Range/Units 06:22 00:10 06:36 WBC 0.74 L* (4.50-10.00) 10*3/uL RBC 2.41 L (4.10-5.20) 10*6/uL Hgb 8.3 L D (12.0-15.0) g/dL Hct 23.8 L (37.2-46.3) % MCV 98.8 H D (80.0-97.0) fL MCH 34.4 H (27.0-32.0) pg Plt Count 18 L* (140-440) 10*3/uL Neutrophils # (1.80-7.70) 10*3/uL Lymphocytes # (0.90-5.00) 10*3/uL Monocytes # (0.20-1.00) 10*3/uL Chloride 110 H (98-107) mmol/L Calcium 7.8 L (8.4-10.2) mg/dL CMV IgG Ab Reactive A (Nonreactive) 02/02/25 Range/Units 06:36 WBC 0.62 L* (4.50-10.00) 10*3/uL RBC 2.37 L (4.10-5.20) 10*6/uL Hgb 8.2 L (12.0-15.0) g/dL Hct 24.8 L (37.2-46.3) % MCV 104.6 H D (80.0-97.0) fL MCH 34.6 H (27.0-32.0) pg Plt Count 22 L (140-440) 10*3/uL Neutrophils # 0.08 L* (1.80-7.70) 10*3/uL Lymphocytes # 0.46 L (0.90-5.00) 10*3/uL Monocytes # 0.01 L (0.20-1.00) 10*3/uL Chloride (98-107) mmol/L Calcium (8.4-10.2) mg/dL CMV IgG Ab (Nonreactive) Microbiology - Last 24 Hours (Table) 01/30/25 10:41 Blood Culture - Preliminary Blood Assessment and Plan (1) Pancytopenia Narrative/Plan: Persistent and stable. The patient is currently on leucovorin, as one of the main differentials is methotrexate effect. Methotrexate level itself is still pending. Workup for other causes of pancytopenia is negative so far, other than elevated rheumatoid factor, which is nonspecific, given the patient's known underlying condition. The patient's CMV IgM was noted to be "borderline". Discussed with ID regarding need for any further workup based on this -Continue leucovorin - Continue to monitor. Transfuse to keep hemoglobin greater than 7 and platelets greater than 10. - It was discussed with the patient that we may need to consider bone marrow aspiration biopsy, if pancytopenia labs are negative, and her counts do not show any improvement over the next 2 to 3 days. The procedure was discussed in detail with her Current Visit: Yes Status: Acute Priority: High Code(s): D61.818 - OTHER PANCYTOPENIA SNOMED Code(s): 497534537 (2) Mental status alteration Narrative/Plan: This is significantly improved, his mental status appearing to be normal at this time. A CT of the brain was negative. Results were discussed with her. At this time it is possible that she may have been having intermittent bacteremia causing transient sepsis type symptoms over the past few weeks, with the source being the lower abdominal skin. Given the significant improvement with IV fluids and antibiotics, this does appear to be the most likely differential at this time Current Visit: Yes Status: Acute Code(s): R41.82 - ALTERED MENTAL STATUS, UNSPECIFIED SNOMED Code(s): 398223712
[2025-02-02] MEDS: BUDESONIDE 1 MG/2 ML NEBU INHALATION SCH (20:47)
[2025-02-03 08:08] LABS: ALT 65 U/L (4-34); AST 72 U/L (14-36); African American GFR (CKD) >90 (>60 ml/min/1.73 sqM); Albumin 2.6 g/dL (3.5-5.0); Alkaline Phosphatase 166 U/L (38-126); Anion Gap 5 mmol/L; Blood Urea Nitrogen 7 mg/dL (7-17); Calcium 7.8 mg/dL (8.4-10.2); Carbon Dioxide 23 mmol/L (22-30); Chloride 111 mmol/L (98-107); Glucose 89 mg/dL (74-99); Non-African American GFR(CKD) >90 (>60 ml/min/1.73 sqM); Potassium 3.6 mmol/L (3.5-5.1); Sodium 139 mmol/L (137-145); Total Bilirubin 0.9 mg/dL (0.2-1.3); Total Protein 5.3 g/dL (6.3-8.2)
[2025-02-03] MEDS ORDERED: ALBUTEROL NEBULIZED 2.5 MG/3 ML INHALATION PRN (08:11)
[2025-02-03 08:20] LABS: HCT 22.6 % (37.2-46.3); HGB 7.7 g/dL (12.0-15.0); MCH 33.9 pg (27.0-32.0); MCHC 34.1 g/dL (32.0-37.0); Mean Platelet Volume 10.6 fL (9.5-12.2); RBC 2.27 10*6/uL (4.10-5.20); RDW 15.2 % (11.5-14.5)
[2025-02-03 08:23] LABS: MCV 99.6 fL (80.0-97.0); WBC 0.42 10*3/uL (4.50-10.00)
[2025-02-03 09:09] LABS: Platelet Count 11 10*3/uL (140-440)
--- NOTE | 2025-02-03 15:02 | P.PN ---
Progress Note - Text Progress Note Date: 02/03/25 Chief Complaint: Severe cellulitis 49-year-old patient follows Dr. John Galeano. Chronic medical conditions include anxiety, essential hypertension, depression, muscle spasms, chronic pain, rheumatoid arthritis. About 2 days ago patient noted increasing redness in the lower abdomen. Progressed to get much worse. Breakdown of skin under the skin fold. And also between the thighs. Patient has been scratching. Also she developed superficial bleeding on the lips. Slight soreness in the mouth. Denies any fever and chills. Patient did confirm that she has been scratching. She also has a dog at home. Has received all his vaccination. Patient denies any fever or chills. She is extremely painful in the groin area. Superficial breakdown of skin 2. January 1: Patient's pain is actually better. Did ambulate. Patient's and daughter at the bedside. Nicotine patch being ordered. Patient placed on IV Unasyn. And IV vancomycin per ID. IV fluids. CT abdomen pelvis showed evidence of possible cirrhosis. Tolerating diet. Patient seen by hematology. Workup in place. January 2: Local dressing continues. Antifungal has been added by ID. Vancomycin has been discontinued. Patient continues IV Unasyn. Discussed with the patient and daughter at the bedside. Patient did drop her hemoglobin to 6.8 bleeding from the cellulitic sites. Unit of blood ordered Leucovorin was started yesterday by hematology for probable methotrexate toxicity. Given low platelets will DC Mobic and ketorolac. Add PPI for prophylaxis January 3: Last night patient became hypotensive. Had to be given fluids. Then patient became tachypneic and some wheezing. Pulmonary was consulted. Janes added. Addis of COPD flareup. Patient is a smoker. Patient remains pancytopenic. Remains on leucovorin. Also on IV Unasyn. Discussed with and patient. February 03: Pancytopenia persist. Eating some. Some decrease in redness on the skin. Remains on IV Unasyn. Getting IV fluids. Nystatin topical powder. Discussed with patient . Add Ensure Active Medications Acetaminophen (Acetaminophen Tab 325 Mg Tab) 650 mg PO Q6HR PRN PRN Reason: Mild Pain or Fever > 100.5 Last Admin: 02/02/25 11:44 Dose: 650 mg Albuterol Sulfate (Albuterol Nebulized 2.5 Mg/3 Ml) 2.5 mg INHALATION RT-QID PRN PRN Reason: Shortness Of Breath Or Wheezing Alprazolam (Alprazolam 0.5 Mg Tab) 0.5 mg PO TID [facility] Last Admin: 02/03/25 08:35 Dose: 0.5 mg Aripiprazole (Aripiprazole 15 Mg Tab) 15 mg PO DAILY [facility] Last Admin: 02/03/25 08:36 Dose: 15 mg Calcium Carbonate/Glycine (Calcium Carbonate 500 Mg Chewable) 1,000 mg PO QID PRN PRN Reason: Heartburn Last Admin: 02/01/25 11:50 Dose: 1,000 mg Citalopram Hydrobromide (Citalopram Hydrobromide 20 Mg Tab) 60 mg PO DAILY [facility] Last Admin: 02/03/25 08:35 Dose: 60 mg Clotrimazole (Clotrimazole 1% Cream 30 Gm Tube) 1 applic TOPICAL DAILY [facility]; Protocol Last Admin: 02/03/25 08:37 Dose: 1 applic Cyclobenzaprine HCl (Cyclobenzaprine 10 Mg Tab) 10 mg PO TID PRN PRN Reason: Muscle Spasm Folic Acid (Folic Acid 1 Mg Tab) 1 mg PO DAILY [facility] Last Admin: 02/03/25 08:36 Dose: 1 mg Hydromorphone HCl (Hydromorphone 1 Mg/Ml 1 Ml Syringe) 1 mg IVP Q3HR PRN PRN Reason: Severe Pain (Scale 7 to 10) Last Admin: 02/03/25 11:45 Dose: 1 mg Hydromorphone HCl (Hydromorphone 0.5 Mg/0.5 Ml Syringe) 0.5 mg IVP Q3HR PRN PRN Reason: Moderate Pain (Scale 4 to 6) Last Admin: 02/02/25 14:35 Dose: 0.5 mg Lactated Ringer's (Lactated Ringers) 1,000 mls @ 100 mls/hr IV .Q10H [facility] Last Admin: 02/03/25 04:44 Dose: 100 mls/hr Ampicillin Sodium/Sulbactam (Sodium 3 gm/ Sodium Chloride) 100 mls @ 200 mls/hr IVPB Q6HR [facility]; Protocol Last Admin: 02/03/25 11:53 Dose: Not Given Leucovorin Calcium (Leucovorin 5 Mg Tab) 5 mg PO Q8H [facility] Last Admin: 02/03/25 11:47 Dose: 5 mg Naloxone HCl (Naloxone 0.4 Mg/Ml 1 Ml Vial) 0.2 mg IV Q2M PRN PRN Reason: Opioid Reversal Nystatin (Nystatin 100,000 Unit/Gm Powd 15 Gm) 1 applic TOPICAL BID [facility]; Protocol Last Admin: 02/03/25 08:36 Dose: 1 applic Ondansetron HCl (Ondansetron 4 Mg/2 Ml Vial) 4 mg IVP Q8HR PRN PRN Reason: Nausea And Vomiting Pantoprazole Sodium (Pantoprazole 40 Mg Tablet) 40 mg PO AC-BID [facility] Last Admin: 02/03/25 04:44 Dose: 40 mg Pregabalin (Pregabalin 75 Mg Cap) 150 mg PO BID [facility] Last Admin: 02/03/25 08:35 Dose: 150 mg Sodium Bicarbonate (Salt And Soda Mouthwash 1,000 Ml) 5 ml PO 5XD [facility] Last Admin: 02/03/25 11:53 Dose: Not Given Social history: Lives with her . Smokes a pack a day. Physical examination: VITAL SIGNS: 98.8, 86, 18, 99 x 76, 98% room air GENERAL: BMI 50.5, laying in bed awake. EYES: Pupils equal. Conjunctiva juan ramon l. HEENT: External appearance of nose and ears normal, oral cavity dried blood along the mucocutaneous junction and corner of the mouth. l. NECK: JVD not raised; masses not palpable. HEART: First and second heart sounds are normal; no edema. LUNGS: Respiratory rate increased l; decreased breath sound. Some wheezing ABDOMEN: Soft, nontender, liver spleen not palpable, no masses palpable. PSYCH: [Alert and oriented x3; mood and affect anxious. MUSCULOSKELETAL:No Clubbing/cyanosis;muscles-grossly intact. Elongated nails, dirty underneath DERMATOLOGICAL: Decrease in redness in the thigh and lower abdomen INVESTIGATIONS, reviewed in the clinical context: January 4: White count 0.4 hemoglobin 7.7 platelets 11 potassium 3.6 creatinine 0.7 January 3: White count 0.6 hemoglobin 8.2 platelets 22 potassium 3.9 creatinine 0.66 lactic acid 0.9 Wound culture: Negative February 01: White count 0.8 hemoglobin 6.8 platelets 22 potassium 3.8 creatinine 0.[address] abdomen pelvis: Suggestion of mild nodularity of the liver surface raising the concern for cirrhosis. Spleen, upper limit of normal in size. Ultrasound abdomen: Liver 19.1 cm. Gallbladder: Bile duct 1.07 cm. Negative Choi sign Iron 41 TIBC 200% saturation 20.5 transferrin 143 ferritin 616 ammonia 9 January 30, 2025: White count 0.92 hemoglobin 9.1 platelets 48 sodium 136 potassium 3.2 creatinine 0.89 total bilirubin 1.8 AST 48 ALT 37 Assessment plan: - Acute secondary severe cellulitis/mucositis primarily affecting the lips, bilateral upper thigh, groin area, perineum. Also present in the skin fold in the lower abdomen. Very tender. Moist and weeping. Possibly precipitated by underlying intertriginous fungal infection and made worse by immunosuppression: Slow to respond IV Unasyn.. Topical nystatin powder. Local wound care. ID and wound care team following - Pancytopenia, from methotrexate, possible toxicity: Some worsening Hold methotrexate. Hematology following - Probable methotrexate toxicity Started on leucovorin January 31 - Chronic rheumatoid arthritis Continue pain medications - Acute COPD exacerbation in a current smoker DuoNeb. 4 times daily. Nebulized Pulmicort - Depression Celexa. Abilify. - Chronic nicotine dependence, cigarette smoker Nicotine patch - Anxiety Xanax - Acute hypotension: Combination of blood loss anemia and fluid loss from desquamating scale. From cellulitis new diagnosis Cozaar discontinued. IV fluid bolus was given. Followed by maintenance fluid. - Essential hypertension, blood pressure running low Cozaar discontinued - Morbid obesity BMI 50.5 Weight loss measures, outpatient - Full code Discussed with patient and . Past Medical History Past Medical History: Hypertension History of Any Multi-Drug Resistant Organisms: None Reported Past Surgical History: Section, Hysterectomy, Tonsillectomy Smoking Status: Current every day smoker
--- NOTE | 2025-02-03 17:22 | P.PN ---
Subjective Progress Note Date: 02/02/25 Principal diagnosis: Reason for follow-up is abdominal wall wound and cellulitis Patient is a 49-year-old female with a past medical history significant for hypertension anxiety depression current everyday smoker presenting to the hospital for evaluation of lower abdominal fold rash that apparently been going on for the last 3 to 4 days [facility] On today's evaluation that is 02/02/2025, patient has been afebrile, patient is breathing comfortably and is currently on room air, patient denies having any chest pain and cough, patient denies nausea vomiting or diarrhea and lower abdominal discomfort has decreased in intensity. Patient white count is 0.62 creatinine 0.66 Objective - Vital Signs Vital signs: Vital Signs Temp 98.6 F 02/01/25 20:00 Pulse 78 02/02/25 11:42 Resp 16 02/02/25 11:42 BP 90/59 02/02/25 11:42 Pulse Ox 98 02/02/25 08:25 FiO2 Intake & Output 02/01/25 02/02/25 02/02/25 18:59 06:59 18:59 Intake Total 560 1080 120 Balance 560 1080 120 Weight 117.5 kg Intake: Oral 250 1080 120 Blood Product 310 Rc As-1 Unit 310 [id number] Other: # Voids 1 1 - Exam GENERAL DESCRIPTION: Middle-age female lying in bed in no distress RESPIRATORY SYSTEM: Unlabored breathing , decreased breath sounds at bases HEART: S1 S2 regular rate and rhythm , ABDOMEN: Soft , no tenderness EXTREMITIES: No edema feet - Labs CBC & Chem 7: 02/03/25 06:49 02/03/25 06:49 Labs: Abnormal Lab Results - Last 24 Hours (Table) 02/01/25 02/02/25 02/02/25 Range/Units 06:22 00:10 06:36 WBC 0.74 L* (4.50-10.00) 10*3/uL RBC 2.41 L (4.10-5.20) 10*6/uL Hgb 8.3 L D (12.0-15.0) g/dL Hct 23.8 L (37.2-46.3) % MCV 98.8 H D (80.0-97.0) fL MCH 34.4 H (27.0-32.0) pg Plt Count 18 L* (140-440) 10*3/uL Neutrophils # (1.80-7.70) 10*3/uL Lymphocytes # (0.90-5.00) 10*3/uL Monocytes # (0.20-1.00) 10*3/uL Chloride 110 H (98-107) mmol/L Calcium 7.8 L (8.4-10.2) mg/dL CMV IgG Ab Reactive A (Nonreactive) 02/02/25 Range/Units 06:36 WBC 0.62 L* (4.50-10.00) 10*3/uL RBC 2.37 L (4.10-5.20) 10*6/uL Hgb 8.2 L (12.0-15.0) g/dL Hct 24.8 L (37.2-46.3) % MCV 104.6 H D (80.0-97.0) fL MCH 34.6 H (27.0-32.0) pg Plt Count 22 L (140-440) 10*3/uL Neutrophils # 0.08 L* (1.80-7.70) 10*3/uL Lymphocytes # 0.46 L (0.90-5.00) 10*3/uL Monocytes # 0.01 L (0.20-1.00) 10*3/uL Chloride (98-107) mmol/L Calcium (8.4-10.2) mg/dL CMV IgG Ab (Nonreactive) Microbiology - Last 24 Hours (Table) 01/30/25 10:41 Blood Culture - Preliminary Blood Assessment and Plan (1) Open abdominal wall wound Current Visit: Yes Status: Acute Code(s): S31.109A - UNSP OPN WND ABD WALL, UNSP Q W/O PENET PERIT CAV, INIT SNOMED Code(s): 894441527 (2) Abdominal wall cellulitis Current Visit: Yes Status: Acute Code(s): L03.311 - CELLULITIS OF ABDOMINAL WALL SNOMED Code(s): 13303235 (3) Elevated liver enzymes Current Visit: Yes Status: Acute Priority: High Code(s): R74.8 - ABNORMAL LEVELS OF OTHER SERUM ENZYMES SNOMED Code(s): 524891906 Plan: 1patient presented to the hospital with painful abdominal wall rash in this patient who did have a superficial ulceration in the abdominal fold concerning for abdominal wall wound and secondary cellulitis likely from gram-positive skin martha less likely gram-negative infection. 2patient with elevated liver enzymes no significant tenderness to right upper quadrant area, CT and ultrasound did not show any acute abnormality to the liver or gallbladder area 3local culture has been obtained which are negative so far 4patient currently being treated with Unasyn along with nystatin powder to bilateral groin area Dictation was produced using [employer] dictation software. please excuse any grammatical, word or spelling errors. Time with Patient: Less than 30
--- NOTE | 2025-02-03 17:22 | P.PN ---
Subjective Progress Note Date: 02/03/25 Principal diagnosis: Reason for follow-up is abdominal wall wound and cellulitis Patient is a 49-year-old female with a past medical history significant for hypertension anxiety depression current everyday smoker presenting to the hospital for evaluation of lower abdominal fold rash that apparently been going on for the last 3 to 4 days before presentation to the [facility]. On today's evaluation that is 02/03/2025, Patient is afebrile this morning patient denies having any chest pain shortness of breath or cough, the patient is currently on room air, patient denies any nausea vomiting still having some bleeding drainage from the groin area overall discomfort has decreased in intensity. Patient did have a white count 0.42, creatinine 0.70 Objective - Vital Signs Vital signs: Vital Signs Temp 98.8 F 02/03/25 14:25 Pulse 81 02/03/25 15:42 Resp 18 02/03/25 14:25 BP 101/61 02/03/25 15:42 Pulse Ox 99 02/03/25 15:42 FiO2 Intake & Output 02/02/25 02/03/25 02/03/25 18:59 06:59 18:59 Intake Total 360 1080 700 Balance 360 1080 700 Weight 118 kg Intake: Intake, IV Titration 700 Amount Ampicillin-Sulbactam 3 gm 100 In Sodium Chloride 0.9% 100 ml @ 200 mls/hr IVPB Q6HR [facility] Rx#:[id number] Lactated Ringers 1,000 ml 600 @ 100 mls/hr IV .Q10H [facility] Rx#:[id number] Oral 360 1080 Other: # Voids 1 - Exam GENERAL DESCRIPTION: Middle-age female lying in bed in no distress RESPIRATORY SYSTEM: Unlabored breathing , decreased breath sounds at bases HEART: S1 S2 regular rate and rhythm , ABDOMEN: Soft , no tenderness EXTREMITIES: No edema feet - Labs CBC & Chem 7: 02/03/25 06:49 02/03/25 06:49 Labs: Abnormal Lab Results - Last 24 Hours (Table) 02/03/25 02/03/25 Range/Units 06:49 06:49 WBC 0.42 L* (4.50-10.00) 10*3/uL RBC 2.27 L (4.10-5.20) 10*6/uL Hgb 7.7 L (12.0-15.0) g/dL Hct 22.6 L (37.2-46.3) % MCV 99.6 H D (80.0-97.0) fL MCH 33.9 H (27.0-32.0) pg Plt Count 11 L* (140-440) 10*3/uL Chloride 111 H (98-107) mmol/L Calcium 7.8 L (8.4-10.2) mg/dL AST 72 H (14-36) U/L ALT 65 H (4-34) U/L Alkaline Phosphatase 166 H (38-126) U/L Total Protein 5.3 L (6.3-8.2) g/dL Albumin 2.6 L (3.5-5.0) g/dL Microbiology - Last 24 Hours (Table) 01/30/25 10:41 Blood Culture - Preliminary Blood Assessment and Plan (1) Open abdominal wall wound Current Visit: Yes Status: Acute Code(s): S31.109A - UNSP OPN WND ABD WALL, UNSP Q W/O PENET PERIT CAV, INIT SNOMED Code(s): 846855928 (2) Abdominal wall cellulitis Current Visit: Yes Status: Acute Code(s): L03.311 - CELLULITIS OF ABDOMINAL WALL SNOMED Code(s): 30613156 (3) Elevated liver enzymes Current Visit: Yes Status: Acute Priority: High Code(s): R74.8 - ABNORMAL LEVELS OF OTHER SERUM ENZYMES SNOMED Code(s): 086045089 Plan: 1patient presented to the hospital with painful abdominal wall rash in this patient who did have a superficial ulceration in the abdominal fold concerning for abdominal wall wound and secondary cellulitis likely from gram-positive skin martha less likely gram-negative infection. 2patient with elevated liver enzymes no significant tenderness to right upper quadrant area, CT and ultrasound did not show any acute abnormality to the liver or gallbladder area 3local culture has been obtained which are negative so far 4patient advised to continue with nystatin powder to bilateral groin area, and short course of Unasyn Dictation was produced using [employer] dictation software. please excuse any grammatical, word or spelling errors. Time with Patient: Less than 30
[2025-02-03] MEDS: CYCLOBENZAPRINE 10 MG TAB PO PRN (20:52)
[2025-02-04 04:38] LABS: HCT 20.4 % (37.2-46.3); MCHC 34.3 g/dL (32.0-37.0); RBC 2.06 10*6/uL (4.10-5.20); RDW 15.5 % (11.5-14.5)
[2025-02-04 04:40] LABS: African American GFR (CKD) >90 (>60 ml/min/1.73 sqM); Anion Gap 6 mmol/L; Blood Urea Nitrogen 5 mg/dL (7-17); Calcium 7.6 mg/dL (8.4-10.2); Carbon Dioxide 22 mmol/L (22-30); Chloride 106 mmol/L (98-107); Glucose 80 mg/dL (74-99); Non-African American GFR(CKD) >90 (>60 ml/min/1.73 sqM); Platelet Count 15 10*3/uL (140-440); Potassium 3.4 mmol/L (3.5-5.1); Sodium 134 mmol/L (137-145); WBC 0.73 10*3/uL (4.50-10.00)
[2025-02-04 05:18] LABS: Methylmalonic Acid 0.19 umol/L (<0.40)
[2025-02-04 06:59] LABS: RBC Morphology Normal
[2025-02-04 13:29] LABS: Albumin 2.89 g/dL (3.80-4.90); Gamma Globulin 0.94 g/dL (0.70-1.50)
[2025-02-04 14:10] LABS: HCT 24.8 % (37.2-46.3); HGB 8.4 g/dL (12.0-15.0); MCHC 33.9 g/dL (32.0-37.0); MCV 100.4 fL (80.0-97.0); Mean Platelet Volume 12.8 fL (9.5-12.2); RBC 2.47 10*6/uL (4.10-5.20); RDW 15.2 % (11.5-14.5)
[2025-02-04 14:30] LABS: WBC 0.98 10*3/uL (4.50-10.00)
[2025-02-04 14:31] LABS: Platelet Count 16 10*3/uL (140-440)
[2025-02-04 15:33] LABS: Anisocytosis (M) Present
--- NOTE | 2025-02-04 20:25 | P.PN ---
Progress Note - Text Progress Note Date: 02/04/25 Chief Complaint: Severe cellulitis 49-year-old patient follows Dr. John Galeano. Chronic medical conditions include anxiety, essential hypertension, depression, muscle spasms, chronic pain, rheumatoid arthritis. About 2 days ago patient noted increasing redness in the lower abdomen. Progressed to get much worse. Breakdown of skin under the skin fold. And also between the thighs. Patient has been scratching. Also she developed superficial bleeding on the lips. Slight soreness in the mouth. Denies any fever and chills. Patient did confirm that she has been scratching. She also has a dog at home. Has received all his vaccination. Patient denies any fever or chills. She is extremely painful in the groin area. Superficial breakdown of skin 2. January 1: Patient's pain is actually better. Did ambulate. Patient's and daughter at the bedside. Nicotine patch being ordered. Patient placed on IV Unasyn. And IV vancomycin per ID. IV fluids. CT abdomen pelvis showed evidence of possible cirrhosis. Tolerating diet. Patient seen by hematology. Workup in place. January 2: Local dressing continues. Antifungal has been added by ID. Vancomycin has been discontinued. Patient continues IV Unasyn. Discussed with the patient and daughter at the bedside. Patient did drop her hemoglobin to 6.8 bleeding from the cellulitic sites. Unit of blood ordered Leucovorin was started yesterday by hematology for probable methotrexate toxicity. Given low platelets will DC Mobic and ketorolac. Add PPI for prophylaxis January 3: Last night patient became hypotensive. Had to be given fluids. Then patient became tachypneic and some wheezing. Pulmonary was consulted. Janes added. [place] of COPD flareup. Patient is a smoker. Patient remains pancytopenic. Remains on leucovorin. Also on IV Unasyn. Discussed with and patient. February 03: Pancytopenia persist. Eating some. Some decrease in redness on the skin. Remains on IV Unasyn. Getting IV fluids. Nystatin topical powder. Discussed with patient . Add Ensure January 5: Hemoglobin this morning-7. In the setting of relatively low blood pressure we will give another unit of blood. Post transfusion hemoglobin 8.4. Platelets still running low. D spoke to Sherita pereira MINING MANAGER from hematology if patient will benefit from platelet as patient continued to ooze from the infection site., Though better than before. Oral intake good. His blood pressure running on the lower side. AUGUST stockings both the legs ordered. Add midodrine 2.5 mg AC 3 times daily. Follow blood pressure. Cut back IV fluids to 60 cc an hour. As patient is feeling a bit puffy. Active Medications Acetaminophen (Acetaminophen Tab 325 Mg Tab) 650 mg PO Q6HR PRN PRN Reason: Mild Pain or Fever > 100.5 Last Admin: 02/04/25 10:30 Dose: 650 mg Albuterol Sulfate (Albuterol Nebulized 2.5 Mg/3 Ml) 2.5 mg INHALATION RT-QID PRN PRN Reason: Shortness Of Breath Or Wheezing Alprazolam (Alprazolam 0.5 Mg Tab) 0.5 mg PO TID [facility] Last Admin: 02/04/25 16:36 Dose: 0.5 mg Aripiprazole (Aripiprazole 15 Mg Tab) 15 mg PO DAILY [facility] Last Admin: 02/04/25 09:03 Dose: 15 mg Calcium Carbonate/Glycine (Calcium Carbonate 500 Mg Chewable) 1,000 mg PO QID PRN PRN Reason: Heartburn Last Admin: 02/01/25 11:50 Dose: 1,000 mg Citalopram Hydrobromide (Citalopram Hydrobromide 20 Mg Tab) 60 mg PO DAILY [facility] Last Admin: 02/04/25 09:02 Dose: 60 mg Clotrimazole (Clotrimazole 1% Cream 30 Gm Tube) 1 applic TOPICAL DAILY [facility]; Protocol Last Admin: 02/04/25 09:04 Dose: Not Given Cyclobenzaprine HCl (Cyclobenzaprine 10 Mg Tab) 10 mg PO TID PRN PRN Reason: Muscle Spasm Last Admin: 02/04/25 12:59 Dose: 10 mg Folic Acid (Folic Acid 1 Mg Tab) 1 mg PO DAILY [facility] Last Admin: 02/04/25 09:02 Dose: 1 mg Hydromorphone HCl (Hydromorphone 1 Mg/Ml 1 Ml Syringe) 1 mg IVP Q3HR PRN PRN Reason: Severe Pain (Scale 7 to 10) Last Admin: 02/04/25 08:58 Dose: 1 mg Hydromorphone HCl (Hydromorphone 0.5 Mg/0.5 Ml Syringe) 0.5 mg IVP Q3HR PRN PRN Reason: Moderate Pain (Scale 4 to 6) Last Admin: 02/04/25 18:09 Dose: 0.5 mg Ampicillin Sodium/Sulbactam (Sodium 3 gm/ Sodium Chloride) 100 mls @ 200 mls/hr IVPB Q6HR [facility]; Protocol Last Admin: 02/04/25 18:08 Dose: 200 mls/hr Lactated Ringer's (Lactated Ringers) 1,000 mls @ 60 mls/hr IV .[id number] [facility] Leucovorin Calcium (Leucovorin 5 Mg Tab) 5 mg PO Q8H [facility] Last Admin: 02/04/25 12:57 Dose: 5 mg Midodrine (Midodrine 5 Mg Tab) 2.5 mg PO AC-TID [facility] Naloxone HCl (Naloxone 0.4 Mg/Ml 1 Ml Vial) 0.2 mg IV Q2M PRN PRN Reason: Opioid Reversal Nystatin (Nystatin 100,000 Unit/Gm Powd 15 Gm) 1 applic TOPICAL BID [facility]; Protocol Last Admin: 02/04/25 09:06 Dose: 1 applic Ondansetron HCl (Ondansetron 4 Mg/2 Ml Vial) 4 mg IVP Q8HR PRN PRN Reason: Nausea And Vomiting Pantoprazole Sodium (Pantoprazole 40 Mg Tablet) 40 mg PO AC-BID [facility] Last Admin: 02/04/25 18:08 Dose: 40 mg Pregabalin (Pregabalin 75 Mg Cap) 150 mg PO BID [facility] Last Admin: 02/04/25 09:02 Dose: 150 mg Sodium Bicarbonate (Salt And Soda Mouthwash 1,000 Ml) 5 ml PO 5XD [facility] Last Admin: 02/04/25 16:36 Dose: 5 ml Social history: Lives with her . Smokes a pack a day. Physical examination: VITAL SIGNS: 99.7, 80, 16, 95 x 60, 97% room air GENERAL: BMI 50.5, laying in bed awake. EYES: Pupils equal. Conjunctiva juan ramon l. HEENT: External appearance of nose and ears normal, oral cavity dried blood along the mucocutaneous junction: Better NECK: JVD not raised; masses not palpable. HEART: First and second heart sounds are normal; no edema. LUNGS: Respiratory rate increased l; decreased breath sound. Some wheezing ABDOMEN: Soft, nontender, liver spleen not palpable, no masses palpable. PSYCH: [Alert and oriented x3; mood and affect anxious. MUSCULOSKELETAL:No Clubbing/cyanosis;muscles-grossly intact. Elongated nails, dirty underneath DERMATOLOGICAL: Decrease in redness in the thigh and lower abdomen INVESTIGATIONS, reviewed in the clinical context: Methotrexate level: Less than 0.05 IgG normal at 1029. IgA normal at 292. IgM normal at 120. Rheumatoid factor increased at 215. Free kappa light chains increased at 5.78. Free lambda light chain increased at 5.89. February 04: White count 0.7 hemoglobin 7 platelets 15. Repeat after 1 unit PRBC hemoglobin 8.4 sodium 134 potassium 3.4 creatinine 0.71 February 03: White count 0.4 hemoglobin 7.7 platelets 11 potassium 3.6 creatinine 0.7 February 02: White count 0.6 hemoglobin 8.2 platelets 22 potassium 3.9 creatinine 0.66 lactic acid 0.9 Wound culture: Negative February 01: White count 0.8 hemoglobin 6.8 platelets 22 potassium 3.8 creatinine 0[address] abdomen pelvis: Suggestion of mild nodularity of the liver surface raising the concern for cirrhosis. Spleen, upper limit of normal in size. Ultrasound abdomen: Liver 19.1 cm. Gallbladder: Bile duct 1.07 cm. Negative Choi sign Iron 41 TIBC 200% saturation 20.5 transferrin 143 ferritin 616 ammonia 9 January 30, 2025: White count 0.92 hemoglobin 9.1 platelets 48 sodium 136 potassium 3.2 creatinine 0.89 total bilirubin 1.8 AST 48 ALT 37 Assessment plan: - Acute secondary severe cellulitis/mucositis primarily affecting the lips, bilateral upper thigh, groin area, perineum. Also present in the skin fold in the lower abdomen. Very tender. Moist and weeping. Possibly precipitated by underlying intertriginous fungal infection and made worse by immunosuppression: Slow to respond IV Unasyn.. Topical nystatin powder. Local wound care. ID and wound care team following - Pancytopenia, from methotrexate, possible toxicity: Some worsening Hold methotrexate. Hematology following - Acute blood loss anemia secondary to bleeding from the skin disclamation deroofing from the cellulitis site.: New diagnosis Patient received blood transfusion today -Likely bone marrow suppression from methotrexate. Methotrexate levels have come back to be less than 0.05 Started on leucovorin January 31 - Chronic rheumatoid arthritis Continue pain medications - Acute COPD exacerbation in a current smoker: Better DuoNeb. 4 times daily. Nebulized Pulmicort - Depression Celexa. Abilify. - Chronic nicotine dependence, cigarette smoker Nicotine patch - Anxiety Xanax - Acute hypotension: Combination of blood loss anemia and fluid loss from desquamating skin. From cellulitis: Slow to respond Cozaar discontinued. IV fluid bolus was given. Followed by maintenance fluid. Added midodrine 2.5 AC 3 times daily - Essential hypertension, blood pressure running low Cozaar discontinued - Morbid obesity BMI 50.5 Weight loss measures, outpatient - Full code Decrease IV fluids. Add midodrine. Transfuse 1 unit of blood. Discussed with patient Past Medical History Past Medical History: Hypertension History of Any Multi-Drug Resistant Organisms: None Reported Past Surgical History: Section, Hysterectomy, Tonsillectomy Smoking Status: Current every day smoker
--- NOTE | 2025-02-04 20:37 | P.PN ---
Subjective Progress Note Date: 02/04/25 Principal diagnosis: pancytopenia In follow-up today patient denies any fevers, nausea, vomiting, sore throat or oral irritation, new or unusual cough, gross bleeding or new pain. Unfortunately, her counts remain persistently low Objective - Vital Signs Vital signs: Vital Signs Temp 99.7 F H 02/04/25 15:32 Pulse 80 02/04/25 15:32 Resp 16 02/04/25 15:32 BP 95/60 02/04/25 15:32 Pulse Ox 97 02/04/25 15:32 FiO2 Intake & Output 02/03/25 02/04/25 02/04/25 18:59 06:59 18:59 Intake Total 397 328 2228 Balance 161 094 5515 Intake: Intake, IV Titration 700 Amount Ampicillin-Sulbactam 3 gm 100 In Sodium Chloride 0.9% 100 ml @ 200 mls/hr IVPB Q6HR [facility] Rx#:[id number] Lactated Ringers 1,000 ml 600 @ 100 mls/hr IV .Q10H [facility] Rx#:[id number] Oral 200 2280 Blood Product 284 Rc Pheresis As-3 Unit 284 [id number] Other: # Voids 1 5 # Bowel Movements 1 1 - Constitutional General appearance: Present: cooperative, no acute distress, obese - EENT Eyes: Present: anicteric sclerae, EOMI ENT: Present: hearing grossly normal, normal oropharynx - Respiratory Details: Respirations unlabored at rest - Cardiovascular Details: Skin warm, well-perfused - Peripheral edema leg Peripheral Edema: bilateral: Trace - Gastrointestinal General gastrointestinal: Present: soft - Integumentary Integumentary: Present: normal turgor, pale - Neurologic Neurologic: Present: CNII-XII intact - Musculoskeletal Musculoskeletal: Present: generalized weakness, strength equal bilaterally - Psychiatric Psychiatric: Present: A&O x's 3, appropriate affect, intact judgment & insight - Labs CBC & Chem 7: 02/04/25 13:56 02/04/25 03:48 Labs: Abnormal Lab Results - Last 24 Hours (Table) 01/31/25 02/01/25 02/04/25 Range/Units 11:22 06:37 03:48 WBC 0.73 L* (4.50-10.00) 10*3/uL RBC 2.06 L (4.10-5.20) 10*6/uL Hgb 7.0 L (12.0-15.0) g/dL Hct 20.4 L (37.2-46.3) % MCV 99.0 H (80.0-97.0) fL MCH 34.0 H (27.0-32.0) pg RDW 15.5 H (11.5-14.5) % Plt Count 15 L* (140-440) 10*3/uL MPV (9.5-12.2) fL Sodium (137-145) mmol/L Potassium (3.5-5.1) mmol/L BUN (7-17) mg/dL Calcium (8.4-10.2) mg/dL Albumin (PEP) 2.89 L (3.80-4.90) g/dL Crossmatch See Detail 02/04/25 02/04/25 Range/Units 03:48 13:56 WBC 0.98 L* (4.50-10.00) 10*3/uL RBC 2.47 L (4.10-5.20) 10*6/uL Hgb 8.4 L (12.0-15.0) g/dL Hct 24.8 L (37.2-46.3) % MCV 100.4 H (80.0-97.0) fL MCH 34.0 H (27.0-32.0) pg RDW 15.2 H (11.5-14.5) % Plt Count 16 L* (140-440) 10*3/uL MPV 12.8 H (9.5-12.2) fL Sodium 134 L (137-145) mmol/L Potassium 3.4 L (3.5-5.1) mmol/L BUN 5 L (7-17) mg/dL Calcium 7.6 L (8.4-10.2) mg/dL Albumin (PEP) (3.80-4.90) g/dL Crossmatch Assessment and Plan (1) Mental status alteration Current Visit: Yes Status: Resolved Priority: High Code(s): R41.82 - ALTERED MENTAL STATUS, UNSPECIFIED SNOMED Code(s): 177791266 (2) Pancytopenia Current Visit: Yes Status: Acute Priority: High Code(s): D61.818 - OTHER PANCYTOPENIA SNOMED Code(s): 704950303 (3) Rheumatoid arthritis Current Visit: Yes Status: Chronic Priority: Medium Code(s): M06.9 - RHEUMATOID ARTHRITIS, UNSPECIFIED SNOMED Code(s): 61493764 Plan: Mental status alteration -CT of the brain negative -Suspect may have been related to bacteremia and sepsis. Patient has done much better since IV fluids and antibiotics - Resolved Rheumatoid arthritis - On treatment for the same with methotrexate. - It was thought that this was possibly contributing to patient's symptoms as well as pancytopenia. This has been discontinued. -Methotrexate level resulted, no concerning level noted. Pancytopenia -Persistent, stable -Discussed with patient and family at the bedside that unfortunately, her counts are not improved despite holding methotrexate, receiving leucovorin, being treated for bacteremia and suspected sepsis. -Recommendation at this time is for bone marrow biopsy and aspirate. Procedure was described to the patient. Patient is agreeable to procedure. -Unable to get procedure room time for the a.m. so, plans will be for Tuesday 02/06, pending time. -Continue to transfuse for hemoglobin less than 7 unless patient is symptomatic. Transfuse for platelets less than 10,000 or if patient is symptomatic. No aspirin, anticoagulation, NSAIDs, antiplatelet therapies at this time. No acute intervention for low white blood cell count/G-CSF until it is clear what underlying cause is.
[2025-02-04] MEDS: MIDODRINE 5 MG TAB PO SCH (21:06)
[2025-02-04] MEDS: LACTATED RINGERS 1,000 ML IV SCH (21:09)
[2025-02-05 09:41] LABS: HCT 24.5 % (37.2-46.3); HGB 8.6 g/dL (12.0-15.0); Immature Platelet Fraction 8.8 % (1.1-6.1); MCH 34.5 pg (27.0-32.0); MCHC 35.1 g/dL (32.0-37.0); MCV 98.4 fL (80.0-97.0); Mean Platelet Volume 12.1 fL (9.5-12.2); RBC 2.49 10*6/uL (4.10-5.20); RDW 15.4 % (11.5-14.5)
[2025-02-05 09:44] LABS: Platelet Count 25 10*3/uL (140-440); WBC 0.94 10*3/uL (4.50-10.00)
[2025-02-05 10:02] LABS: Anisocytosis (M) Present
--- NOTE | 2025-02-05 13:31 | P.PN ---
Subjective Progress Note Date: 02/04/25 Principal diagnosis: Reason for follow-up is abdominal wall wound and cellulitis Patient is a 49-year-old female with a past medical history significant for hypertension anxiety depression current everyday smoker presenting to the hospital for evaluation of lower abdominal fold rash that apparently been going on for the last 3 to 4 days before presentation to the [facility]. On today's evaluation that is 02/04/2025,the patient did have a low-grade fever of 100 F this morning patient denies having any chills no chest pain shortness of breath or cough no abdominal pain or pain to the groin area has been complaining of mostly swelling to the upper extremity Patient white count 0.98 creatinine 0.71 blood and local culture have been negative Objective - Vital Signs Vital signs: Vital Signs Temp 98.4 F 02/04/25 12:47 Pulse 69 02/04/25 12:47 Resp 15 02/04/25 12:47 BP 82/49 02/04/25 12:47 Pulse Ox 97 02/04/25 12:47 FiO2 Intake & Output 02/03/25 02/04/25 02/04/25 18:59 06:59 18:59 Intake Total 143 287 7441 Balance 155 702 3246 Intake: Intake, IV Titration 700 Amount Ampicillin-Sulbactam 3 gm 100 In Sodium Chloride 0.9% 100 ml @ 200 mls/hr IVPB Q6HR [facility] Rx#:[id number] Lactated Ringers 1,000 ml 600 @ 100 mls/hr IV .Q10H [facility] Rx#:[id number] Oral 200 720 Blood Product 284 Rc Pheresis As-3 Unit 284 [id number] Other: # Voids 1 # Bowel Movements 1 - Exam GENERAL DESCRIPTION: Middle-age female lying in bed in no distress RESPIRATORY SYSTEM: Unlabored breathing , decreased breath sounds at bases HEART: S1 S2 regular rate and rhythm , ABDOMEN: Soft , no tenderness Bilateral groin area ulceration swelling and redness has decreased no drainage - Labs CBC & Chem 7: 02/05/25 09:15 02/04/25 03:48 Labs: Abnormal Lab Results - Last 24 Hours (Table) 02/01/25 02/04/25 02/04/25 Range/Units 06:37 03:48 03:48 WBC 0.73 L* (4.50-10.00) 10*3/uL RBC 2.06 L (4.10-5.20) 10*6/uL Hgb 7.0 L (12.0-15.0) g/dL Hct 20.4 L (37.2-46.3) % MCV 99.0 H (80.0-97.0) fL MCH 34.0 H (27.0-32.0) pg RDW 15.5 H (11.5-14.5) % Plt Count 15 L* (140-440) 10*3/uL Sodium 134 L (137-145) mmol/L Potassium 3.4 L (3.5-5.1) mmol/L BUN 5 L (7-17) mg/dL Calcium 7.6 L (8.4-10.2) mg/dL Crossmatch See Detail Assessment and Plan (1) Open abdominal wall wound Current Visit: Yes Status: Acute Code(s): S31.109A - UNSP OPN WND ABD WALL, UNSP Q W/O PENET PERIT CAV, INIT SNOMED Code(s): 595242692 (2) Abdominal wall cellulitis Current Visit: Yes Status: Acute Code(s): L03.311 - CELLULITIS OF ABDOMINAL WALL SNOMED Code(s): 71881539 (3) Elevated liver enzymes Current Visit: Yes Status: Acute Priority: High Code(s): R74.8 - ABNORMAL LEVELS OF OTHER SERUM ENZYMES SNOMED Code(s): 672087998 Plan: 1patient presented to the hospital with painful abdominal wall rash in this patient who did have a superficial ulceration in the abdominal fold concerning for abdominal wall wound and secondary cellulitis likely from gram-positive skin amrtha less likely gram-negative infection. 2patient with elevated liver enzymes no significant tenderness to right upper quadrant area, CT and ultrasound did not show any acute abnormality to the liver or gallbladder area 3local culture has been obtained which are negative so far 4patient did have improvement of bilateral groin area we will continue with the nystatin powder along with Unasyn for the cellulitis part Dictation was produced using [employer] dictation software. please excuse any grammatical, word or spelling errors. Time with Patient: Less than 30
--- NOTE | 2025-02-05 13:32 | P.PN ---
Subjective Progress Note Date: 02/05/25 Principal diagnosis: Reason for follow-up is abdominal wall wound and cellulitis Patient is a 49-year-old female with a past medical history significant for hypertension anxiety depression current everyday smoker presenting to the hospital for evaluation of lower abdominal fold rash that apparently been going on for the last 3 to 4 days before presentation to the [facility]. On today's evaluation that is 02/05/2025,the patient did have a low-grade fever of 99.7 F this morning, patient is on room air not requiring supplemental oxygen and denies any shortness of breath no chest pain or cough.Patient denies having any nausea or vomiting, no abdominal pain and no diarrhea, pain to the bilateral groin area has decreased in intensity. Patient did have a white count of 0.94 Objective - Vital Signs Vital signs: Vital Signs Temp 99.6 F 02/05/25 12:44 Pulse 81 02/05/25 12:44 Resp 18 02/05/25 12:44 BP 115/67 02/05/25 12:44 Pulse Ox 96 02/05/25 12:44 FiO2 Intake & Output 02/04/25 02/05/25 02/05/25 18:59 06:59 18:59 Intake Total 2564 1200 Balance 2564 1200 Intake: Intake, IV Titration 1200 Amount Ampicillin-Sulbactam 3 gm 100 In Sodium Chloride 0.9% 100 ml @ 200 mls/hr IVPB Q6HR [facility] Rx#:[id number] Lactated Ringers 1,000 ml 1100 @ 100 mls/hr IV .Q10H [facility] Rx#:[id number] Oral 2280 Blood Product 284 Rc Pheresis As-3 Unit 284 [id number] Other: Voiding Method Toilet # Voids 5 # Bowel Movements 1 - Exam GENERAL DESCRIPTION: Middle-age female lying in bed in no distress RESPIRATORY SYSTEM: Unlabored breathing , decreased breath sounds at bases HEART: S1 S2 regular rate and rhythm , ABDOMEN: Soft , no tenderness - Labs CBC & Chem 7: 02/05/25 09:15 02/04/25 03:48 Labs: Abnormal Lab Results - Last 24 Hours (Table) 02/04/25 02/05/25 Range/Units 13:56 09:15 WBC 0.98 L* 0.94 L* (4.50-10.00) 10*3/uL RBC 2.47 L 2.49 L (4.10-5.20) 10*6/uL Hgb 8.4 L 8.6 L (12.0-15.0) g/dL Hct 24.8 L 24.5 L (37.2-46.3) % MCV 100.4 H 98.4 H (80.0-97.0) fL MCH 34.0 H 34.5 H (27.0-32.0) pg RDW 15.2 H 15.4 H (11.5-14.5) % Plt Count 16 L* 25 L D (140-440) 10*3/uL MPV 12.8 H (9.5-12.2) fL Immature Plt Fraction 8.8 H (1.1-6.1) % Microbiology - Last 24 Hours (Table) 01/30/25 10:41 Blood Culture - Final Blood Assessment and Plan (1) Open abdominal wall wound Current Visit: Yes Status: Acute Code(s): S31.109A - UNSP OPN WND ABD WALL, UNSP Q W/O PENET PERIT CAV, INIT SNOMED Code(s): 269712930 (2) Abdominal wall cellulitis Current Visit: Yes Status: Acute Code(s): L03.311 - CELLULITIS OF ABDOMINAL WALL SNOMED Code(s): 73410332 (3) Elevated liver enzymes Current Visit: Yes Status: Acute Priority: High Code(s): R74.8 - ABNORMAL LEVELS OF OTHER SERUM ENZYMES SNOMED Code(s): 923814582 Plan: 1patient presented to the hospital with painful abdominal wall rash in this patient who did have a superficial ulceration in the abdominal fold concerning for abdominal wall wound and secondary cellulitis likely from gram-positive skin martha less likely gram-negative infection. 2patient with elevated liver enzymes no significant tenderness to right upper quadrant area, CT and ultrasound did not show any acute abnormality to the liver or gallbladder area 3local culture has been obtained which are negative so far 4patient did have improvement in her fever pattern, culture have been negative as well as improvement of bilateral groin area we will continue with the nystatin powder along with Unasyn and will consider short course of oral Augmentin on discharge care discussed with admitting physician Dictation was produced using [employer] dictation software. please excuse any grammatical, word or spelling errors. Time with Patient: Less than 30
--- NOTE | 2025-02-05 16:15 | P.PN ---
Progress Note - Text Progress Note Date: 02/05/25 Chief Complaint: Severe cellulitis 49-year-old patient follows Dr. John Galeano. Chronic medical conditions include anxiety, essential hypertension, depression, muscle spasms, chronic pain, rheumatoid arthritis. About 2 days ago patient noted increasing redness in the lower abdomen. Progressed to get much worse. Breakdown of skin under the skin fold. And also between the thighs. Patient has been scratching. Also she developed superficial bleeding on the lips. Slight soreness in the mouth. Denies any fever and chills. Patient did confirm that she has been scratching. She also has a dog at home. Has received all his vaccination. Patient denies any fever or chills. She is extremely painful in the groin area. Superficial breakdown of skin 2. January 1: Patient's pain is actually better. Did ambulate. Patient's and daughter at the bedside. Nicotine patch being ordered. Patient placed on IV Unasyn. And IV vancomycin per ID. IV fluids. CT abdomen pelvis showed evidence of possible cirrhosis. Tolerating diet. Patient seen by hematology. Workup in place. January 2: Local dressing continues. Antifungal has been added by ID. Vancomycin has been discontinued. Patient continues IV Unasyn. Discussed with the patient and daughter at the bedside. Patient did drop her hemoglobin to 6.8 bleeding from the cellulitic sites. Unit of blood ordered Leucovorin was started yesterday by hematology for probable methotrexate toxicity. Given low platelets will DC Mobic and ketorolac. Add PPI for prophylaxis January 3: Last night patient became hypotensive. Had to be given fluids. Then patient became tachypneic and some wheezing. Pulmonary was consulted. Janes added. Grannis of COPD flareup. Patient is a smoker. Patient remains pancytopenic. Remains on leucovorin. Also on IV Unasyn. Discussed with and patient. February 03: Pancytopenia persist. Eating some. Some decrease in redness on the skin. Remains on IV Unasyn. Getting IV fluids. Nystatin topical powder. Discussed with patient . Add Ensure January 5: Hemoglobin this morning-7. In the setting of relatively low blood pressure we will give another unit of blood. Post transfusion hemoglobin 8.4. Platelets still running low. D spoke to Sherita pereira [employer] from hematology if patient will benefit from platelet as patient continued to ooze from the infection site., Though better than before. Oral intake good. His blood pressure running on the lower side. AUGUST stockings both the legs ordered. Add midodrine 2.5 mg AC 3 times daily. Follow blood pressure. Cut back IV fluids to 60 cc an hour. As patient is feeling a bit puffy. January 6: Redness is significantly gone down. Spoke to ID. Groin findings also much better. Eating fair. Patient due for a bone marrow biopsy tomorrow. If CBC better could be discharged tomorrow. Remains on IV Unasyn. Nystatin powder. Discussed with patient . Active Medications Acetaminophen (Acetaminophen Tab 325 Mg Tab) 650 mg PO Q6HR PRN PRN Reason: Mild Pain or Fever > 100.5 Last Admin: 02/04/25 10:30 Dose: 650 mg Albuterol Sulfate (Albuterol Nebulized 2.5 Mg/3 Ml) 2.5 mg INHALATION RT-QID PRN PRN Reason: Shortness Of Breath Or Wheezing Alprazolam (Alprazolam 0.5 Mg Tab) 0.5 mg PO TID [facility] Last Admin: 02/05/25 09:28 Dose: 0.5 mg Aripiprazole (Aripiprazole 15 Mg Tab) 15 mg PO DAILY [facility] Last Admin: 02/05/25 09:28 Dose: 15 mg Calcium Carbonate/Glycine (Calcium Carbonate 500 Mg Chewable) 1,000 mg PO QID PRN PRN Reason: Heartburn Last Admin: 02/01/25 11:50 Dose: 1,000 mg Citalopram Hydrobromide (Citalopram Hydrobromide 20 Mg Tab) 60 mg PO DAILY [facility] Last Admin: 02/05/25 09:28 Dose: 60 mg Clotrimazole (Clotrimazole 1% Cream 30 Gm Tube) 1 applic TOPICAL DAILY [facility]; Protocol Last Admin: 02/05/25 09:32 Dose: Not Given Cyclobenzaprine HCl (Cyclobenzaprine 10 Mg Tab) 10 mg PO TID PRN PRN Reason: Muscle Spasm Last Admin: 02/04/25 12:59 Dose: 10 mg Folic Acid (Folic Acid 1 Mg Tab) 1 mg PO DAILY [facility] Last Admin: 02/05/25 09:28 Dose: 1 mg Hydromorphone HCl (Hydromorphone 1 Mg/Ml 1 Ml Syringe) 1 mg IVP Q3HR PRN PRN Reason: Severe Pain (Scale 7 to 10) Last Admin: 02/04/25 08:58 Dose: 1 mg Hydromorphone HCl (Hydromorphone 0.5 Mg/0.5 Ml Syringe) 0.5 mg IVP Q3HR PRN PRN Reason: Moderate Pain (Scale 4 to 6) Last Admin: 02/05/25 13:18 Dose: 0.5 mg Ampicillin Sodium/Sulbactam (Sodium 3 gm/ Sodium Chloride) 100 mls @ 200 mls/hr IVPB Q6HR [facility]; Protocol Last Admin: 02/05/25 12:38 Dose: 200 mls/hr Lactated Ringer's (Lactated Ringers) 1,000 mls @ 60 mls/hr IV .[id number] [facility] Last Admin: 02/05/25 12:39 Dose: 60 mls/hr Leucovorin Calcium (Leucovorin 5 Mg Tab) 5 mg PO Q8H [facility] Last Admin: 02/05/25 12:38 Dose: 5 mg Midodrine (Midodrine 5 Mg Tab) 2.5 mg PO AC-TID [facility] Last Admin: 02/05/25 12:38 Dose: 2.5 mg Naloxone HCl (Naloxone 0.4 Mg/Ml 1 Ml Vial) 0.2 mg IV Q2M PRN PRN Reason: Opioid Reversal Nystatin (Nystatin 100,000 Unit/Gm Powd 15 Gm) 1 applic TOPICAL BID [facility]; Protocol Last Admin: 02/05/25 09:29 Dose: 1 applic Ondansetron HCl (Ondansetron 4 Mg/2 Ml Vial) 4 mg IVP Q8HR PRN PRN Reason: Nausea And Vomiting Pantoprazole Sodium (Pantoprazole 40 Mg Tablet) 40 mg PO AC-BID [facility] Last Admin: 02/05/25 09:28 Dose: 40 mg Pregabalin (Pregabalin 75 Mg Cap) 150 mg PO BID [facility] Last Admin: 02/05/25 09:28 Dose: 150 mg Sodium Bicarbonate (Salt And Soda Mouthwash 1,000 Ml) 5 ml PO 5XD [facility] Last Admin: 02/05/25 12:39 Dose: 5 ml Social history: Lives with her . Smokes a pack a day. Physical examination: VITAL SIGNS: 99.6, 81, 18, 115 x 67, 96% room air GENERAL: Laying in bed, comfortable. EYES: Pupils equal. Conjunctiva juan ramon l. HEENT: External appearance of nose and ears normal, oral cavity dried blood along the mucocutaneous junction: Better NECK: JVD not raised; masses not palpable. HEART: First and second heart sounds are normal; no edema. LUNGS: Respiratory rate i normal l; decreased breath sound. ABDOMEN: Soft, nontender, liver spleen not palpable, no masses palpable. PSYCH: [Alert and oriented x3; mood and affect anxious. MUSCULOSKELETAL:No Clubbing/cyanosis;muscles-grossly intact. DERMATOLOGICAL: Improvement redness in the thigh and lower abdomen INVESTIGATIONS, reviewed in the clinical context: February 05: White count 0.9 hemoglobin 8.6 platelets 25 Methotrexate level: Less than 0.05 IgG normal at 1029. IgA normal at 292. IgM normal at 120. Rheumatoid factor increased at 215. Free kappa light chains increased at 5.78. Free lambda light chain increased at 5.89. February 04: White count 0.7 hemoglobin 7 platelets 15. Repeat after 1 unit PRBC hemoglobin 8.4 sodium 134 potassium 3.4 creatinine 0.71 January 4: White count 0.4 hemoglobin 7.7 platelets 11 potassium 3.6 creatinine 0.7 January 3: White count 0.6 hemoglobin 8.2 platelets 22 potassium 3.9 creatinine 0.66 lactic acid 0.9 Wound culture: Negative February 01: White count 0.8 hemoglobin 6.8 platelets 22 potassium 3.8 creatinine 0[address] abdomen pelvis: Suggestion of mild nodularity of the liver surface raising the concern for cirrhosis. Spleen, upper limit of normal in size. Ultrasound abdomen: Liver 19.1 cm. Gallbladder: Bile duct 1.07 cm. Negative Choi sign Iron 41 TIBC 200% saturation 20.5 transferrin 143 ferritin 616 ammonia 9 January 30, 2025: White count 0.92 hemoglobin 9.1 platelets 48 sodium 136 potassium 3.2 creatinine 0.89 total bilirubin 1.8 AST 48 ALT 37 Assessment plan: - Acute secondary severe cellulitis/mucositis primarily affecting the lips, bilateral upper thigh, groin area, perineum. Also present in the skin fold in the lower abdomen. Very tender. Moist and weeping. Possibly precipitated by underlying intertriginous fungal infection and made worse by immunosuppression: Now significant improvement IV Unasyn.. Topical nystatin powder. Local wound care. ID and wound care team following - Pancytopenia, from methotrexate, Hold methotrexate. Hematology following. For bone marrow biopsy tomorrow - Acute blood loss anemia secondary to bleeding from the skin disclamation deroofing from the cellulitis site.: Patient received blood transfusion today -Likely bone marrow suppression from methotrexate. Methotrexate levels have come back to be less than 0.05 Started on leucovorin January 31 - Chronic rheumatoid arthritis Continue pain medications - Acute COPD exacerbation in a current smoker: Better DuoNeb. 4 times daily. Nebulized Pulmicort - Depression Celexa. Abilify. - Chronic nicotine dependence, cigarette smoker Nicotine patch - Anxiety Xanax - Acute hypotension: Combination of blood loss anemia and fluid loss from desquamating skin. From cellulitis: Slow to respond Cozaar discontinued. IV fluid bolus was given. Followed by maintenance fluid. Added midodrine 2.5 AC 3 times daily - Essential hypertension, blood pressure running low Cozaar discontinued - Morbid obesity BMI 50.5 Weight loss measures, outpatient - Full code Overall doing better. For bone marrow biopsy tomorrow. Discussed with ID. Possible discharge on oral antibiotics. Will depend on CBC profile tomorrow. Past Medical History Past Medical History: Hypertension History of Any Multi-Drug Resistant Organisms: None Reported Past Surgical History: Section, Hysterectomy, Tonsillectomy Smoking Status: Current every day smoker
--- NOTE | 2025-02-05 16:46 | P.PN ---
Subjective Progress Note Date: 02/05/25 Principal diagnosis: pancytopenia In follow-up today patient denies any fevers, nausea, vomiting, sore throat or oral irritation, new or unusual cough, gross bleeding or new pain. Unfortunately, her counts remain low but, there was a slight increase in her plt, Hgb and WBC stable. We again reviewed BM bx procedure Objective - Vital Signs Vital signs: Vital Signs Temp 99.6 F 02/05/25 12:44 Pulse 81 02/05/25 12:44 Resp 18 02/05/25 12:44 BP 115/67 02/05/25 12:44 Pulse Ox 96 02/05/25 12:44 FiO2 Intake & Output 02/04/25 02/05/25 02/05/25 18:59 06:59 18:59 Intake Total 2564 1200 Balance 2564 1200 Intake: Intake, IV Titration 1200 Amount Ampicillin-Sulbactam 3 gm 100 In Sodium Chloride 0.9% 100 ml @ 200 mls/hr IVPB Q6HR JOSE RAUL Rx#:[id number] Lactated Ringers 1,000 ml 1100 @ 100 mls/hr IV .Q10H JOSE RAUL Rx#:[id number] Oral 2280 Blood Product 284 Rc Pheresis As-3 Unit 284 [id number] Other: Voiding Method Toilet Toilet # Voids 5 # Bowel Movements 1 - Constitutional General appearance: Present: cooperative, no acute distress, obese - EENT Eyes: Present: anicteric sclerae, EOMI ENT: Present: hearing grossly normal - Respiratory Details: resp unlabored - Cardiovascular Details: skin warm, well perfused - Integumentary Integumentary: Present: normal turgor - Neurologic Neurologic: Present: CNII-XII intact - Musculoskeletal Musculoskeletal: Present: strength equal bilaterally - Psychiatric Psychiatric: Present: A&O x's 3, appropriate affect, intact judgment & insight - Labs CBC & Chem 7: 02/05/25 09:15 02/04/25 03:48 Labs: Abnormal Lab Results - Last 24 Hours (Table) 02/05/25 Range/Units 09:15 WBC 0.94 L* (4.50-10.00) 10*3/uL RBC 2.49 L (4.10-5.20) 10*6/uL Hgb 8.6 L (12.0-15.0) g/dL Hct 24.5 L (37.2-46.3) % MCV 98.4 H (80.0-97.0) fL MCH 34.5 H (27.0-32.0) pg RDW 15.4 H (11.5-14.5) % Plt Count 25 L D (140-440) 10*3/uL Immature Plt Fraction 8.8 H (1.1-6.1) % Microbiology - Last 24 Hours (Table) 01/30/25 10:41 Blood Culture - Final Blood Assessment and Plan (1) Mental status alteration Current Visit: Yes Status: Resolved Priority: High Code(s): R41.82 - ALTERED MENTAL STATUS, UNSPECIFIED SNOMED Code(s): 205093672 (2) Pancytopenia Current Visit: Yes Status: Acute Priority: High Code(s): D61.818 - OTHER PANCYTOPENIA SNOMED Code(s): 924642764 (3) Rheumatoid arthritis Current Visit: Yes Status: Chronic Priority: Medium Code(s): M06.9 - RHEUMATOID ARTHRITIS, UNSPECIFIED SNOMED Code(s): 94223412 Plan: Mental status alteration -CT of the brain negative -Suspect may have been related to bacteremia and sepsis. Patient has done much better since IV fluids and antibiotics - Resolved Rheumatoid arthritis - On treatment for the same with methotrexate. - It was thought that this was possibly contributing to patient's symptoms as well as pancytopenia. This has been discontinued. -Methotrexate level resulted, no concerning level noted. Pancytopenia -Persistent, stable -Discussed with patient and family at the bedside yesterday that unfortunately, her counts are not improved despite holding methotrexate, receiving leucovorin, being treated for bacteremia and suspected sepsis. -Recommendation is for bone marrow biopsy and aspirate. Reviewed procedure, risks and what we hope to find out with the BM Bx was described to the patient. Patient is agreeable to procedure. -BM Bx and aspirate sched for Tuesday 02/06, at 1145. -NPO after midnight ordered. -Continue to transfuse for hemoglobin less than 7 unless patient is symptomatic. Transfuse for platelets less than 10,000 or if patient is symptomatic. No aspirin, anticoagulation, NSAIDs, antiplatelet therapies at this time. No acute intervention for low white blood cell count/G-CSF until it is clear what underlying cause is. No transfusions needed today Discussed case briefly with IM. If CBC is stable and pt tolerates BM Bx well, she can be discharged tomorrow afternoon. Lab encounters twice a week until Bm Bx results available All pt and her husbands questions were answered to their satisfaction
[2025-02-06 04:55] LABS: HCT 22.4 % (37.2-46.3); HGB 7.8 g/dL (12.0-15.0); MCH 34.5 pg (27.0-32.0); MCHC 34.8 g/dL (32.0-37.0); MCV 99.1 fL (80.0-97.0); Mean Platelet Volume 11.9 fL (9.5-12.2); RBC 2.26 10*6/uL (4.10-5.20); RDW 15.4 % (11.5-14.5)
[2025-02-06 05:17] LABS: African American GFR (CKD) >90 (>60 ml/min/1.73 sqM); Anion Gap 3 mmol/L; Blood Urea Nitrogen 3 mg/dL (7-17); Calcium 7.6 mg/dL (8.4-10.2); Carbon Dioxide 24 mmol/L (22-30); Chloride 108 mmol/L (98-107); Glucose 80 mg/dL (74-99); Non-African American GFR(CKD) >90 (>60 ml/min/1.73 sqM); Potassium 2.8 mmol/L (3.5-5.1); Sodium 135 mmol/L (137-145)
[2025-02-06 05:22] LABS: WBC 1.43 10*3/uL (4.50-10.00)
[2025-02-06] MEDS ORDERED: PROPOFOL 10 MG/ML 20 ML VIAL IV ONE (12:05)
[2025-02-06] MEDS ORDERED: LIDOCAINE 1% INJ 10MG/ML (20 ML MDV) ONE (12:05)
[2025-02-06] MEDS: IV FLUID CONTINUATION 1,000 ML IV ONE ×2 (12:14→12:31)
--- NOTE | 2025-02-06 12:40 | P.PCN ---
Date of Procedure: 02/06/25 Preoperative Diagnosis: Pancytopenia, negative lab workup Postoperative Diagnosis: Same Procedure(s) Performed: Bone marrow aspiration biopsy Anesthesia: MAC Surgeon: Eric Mandujano Mailmaster #1: Stated None Estimated Blood Loss (ml): 2 Pathology: other Condition: stable Disposition: floor Indications for Procedure: Patient presented with severe pancytopenia. Lab workup is negative. Bone marrow aspiration biopsy being performed for further workup Operative Findings: Adequate sample Description of Procedure: The procedure was discussed in detail with the patient on the floor. Informed consent was obtained on the floor. She presented to the outpatient endoscopy suite. She was placed in the left lateral decubitus position and area over both posterior iliac crests was cleaned and prepped with chlorhexidine and sterile draping. IV sedation was then initiated. Local anesthesia was administered with lidocaine to the right posterior iliac crest. A Jamshidi needle was then inserted and bone marrow aspirate and biopsy obtained. The biopsy specimen could not be freed from the needle, and was therefore left in situ for it to be removed in the lab. Aspirate sample was adequate Blood loss was minimal and recovery from sedation was satisfactory. She appeared to have tolerated the procedure well, without any obvious, immediate complications and was transferred back to the floor
[2025-02-06 14:09] LABS: Neutrophils % (M) 13 %
[2025-02-06 14:10] LABS: Band Neutrophils % 2 %; Basophils # (M) 0.01 k/uL (0-0.2); Eosinophils # (M) 0.06 k/uL (0-0.7); Metamyelocytes # (M) 0.03 k/uL (0); Metamyelocytes % 2 %; Monocytes # (M) 0.29 k/uL (0-1.0); Myelocytes # (M) 0.03 k/uL (0); Myelocytes % 2 %; Neutrophils # (M) 0.21 k/uL (1.3-7.7); Nucleated Red Blood Cells 0 /100 WBC (0-0); Total Cells Counted 100
[2025-02-06 14:11] LABS: RBC Morphology Normal
[2025-02-06 14:12] LABS: Platelet Count 42 10*3/uL (140-440)
[2025-02-06 15:53] VITALS: BMI 46.0
[2025-02-06] MEDS: POTASSIUM CHLORIDE ER 20 MEQ TAB.ER PO SCH (20:22)
--- NOTE | 2025-02-06 20:41 | P.PN ---
Progress Note - Text Progress Note Date: 02/06/25 49-year-old patient follows Dr. John Galeano. Chronic medical conditions include anxiety, essential hypertension, depression, muscle spasms, chronic pain, rheumatoid arthritis. About 2 days ago patient noted increasing redness in the lower abdomen. Progressed to get much worse. Breakdown of skin under the skin fold. And also between the thighs. Patient has been scratching. Also she developed superficial bleeding on the lips. Slight soreness in the mouth. Denies any fever and chills. Patient did confirm that she has been scratching. She also has a dog at home. Has received all his vaccination. Patient denies any fever or chills. She is extremely painful in the groin area. Superficial breakdown of skin 2. January 1: Patient's pain is actually better. Did ambulate. Patient's and daughter at the bedside. Nicotine patch being ordered. Patient placed on IV Unasyn. And IV vancomycin per ID. IV fluids. CT abdomen pelvis showed evidence of possible cirrhosis. Tolerating diet. Patient seen by hematology. Workup in place. February 01: Local dressing continues. Antifungal has been added by ID. Vancomycin has been discontinued. Patient continues IV Unasyn. Discussed with the patient and daughter at the bedside. Patient did drop her hemoglobin to 6.8 bleeding from the cellulitic sites. Unit of blood ordered Leucovorin was started yesterday by hematology for probable methotrexate toxicity. Given low platelets will DC Mobic and ketorolac. Add PPI for prophylaxis January 3: Last night patient became hypotensive. Had to be given fluids. Then patient became tachypneic and some wheezing. Pulmonary was consulted. Janes added. Bradford of COPD flareup. Patient is a smoker. Patient remains pancytopenic. Remains on leucovorin. Also on IV Unasyn. Discussed with and patient. February 03: Pancytopenia persist. Eating some. Some decrease in redness on the skin. Remains on IV Unasyn. Getting IV fluids. Nystatin topical powder. Discussed with patient . Add Ensure January 5: Hemoglobin this morning-7. In the setting of relatively low blood pressure we will give another unit of blood. Post transfusion hemoglobin 8.4. Platelets still running low. D spoke to Sherita pereira CNC TECHNICIAN from hematology if patient will benefit from platelet as patient continued to ooze from the infection site., Though better than before. Oral intake good. His blood pressure running on the lower side. AUGUST stockings both the legs ordered. Add m idodrine 2.5 mg AC 3 times daily. Follow blood pressure. Cut back IV fluids to 60 cc an hour. As patient is feeling a bit puffy. February 05: Redness is significantly gone down. Spoke to ID. Groin findings also much better. Eating fair. Patient due for a bone marrow biopsy tomorrow. If CBC better could be discharged tomorrow. Remains on IV Unasyn. Nystatin powder. Discussed with patient . February 06: Yesterday evening patient did spike a fever 101.5. But has had no further fevers. Had a bone marrow today. Feels well. Patient's thigh and groin area much improved. Eating well. Having small bowel movements. Overall feels much better. I suspect this could be antibiotic related fever. Because clinically patient looks much better. Will watch another 24 hours. Nurse was present Active Medications Acetaminophen (Acetaminophen Tab 325 Mg Tab) 650 mg PO Q6HR PRN PRN Reason: Mild Pain or Fever > 100.5 Last Admin: 02/04/25 10:30 Dose: 650 mg Albuterol Sulfate (Albuterol Nebulized 2.5 Mg/3 Ml) 2.5 mg INHALATION RT-QID PRN PRN Reason: Shortness Of Breath Or Wheezing Alprazolam (Alprazolam 0.5 Mg Tab) 0.5 mg PO TID [facility] Last Admin: 02/06/25 15:25 Dose: 0.5 mg Aripiprazole (Aripiprazole 15 Mg Tab) 15 mg PO DAILY [facility] Last Admin: 02/06/25 08:16 Dose: 15 mg Calcium Carbonate/Glycine (Calcium Carbonate 500 Mg Chewable) 1,000 mg PO QID PRN PRN Reason: Heartburn Last Admin: 02/01/25 11:50 Dose: 1,000 mg Citalopram Hydrobromide (Citalopram Hydrobromide 20 Mg Tab) 60 mg PO DAILY [facility] Last Admin: 02/06/25 12:50 Dose: 60 mg Clotrimazole (Clotrimazole 1% Cream 30 Gm Tube) 1 applic TOPICAL DAILY [facility]; Protocol Last Admin: 02/06/25 08:19 Dose: Not Given Cyclobenzaprine HCl (Cyclobenzaprine 10 Mg Tab) 10 mg PO TID PRN PRN Reason: Muscle Spasm Last Admin: 02/06/25 12:56 Dose: 10 mg Folic Acid (Folic Acid 1 Mg Tab) 1 mg PO DAILY [facility] Last Admin: 02/06/25 08:11 Dose: Not Given Hydromorphone HCl (Hydromorphone 1 Mg/Ml 1 Ml Syringe) 1 mg IVP Q3HR PRN PRN Reason: Severe Pain (Scale 7 to 10) Last Admin: 02/04/25 08:58 Dose: 1 mg Hydromorphone HCl (Hydromorphone 0.5 Mg/0.5 Ml Syringe) 0.5 mg IVP Q3HR PRN PRN Reason: Moderate Pain (Scale 4 to 6) Last Admin: 02/06/25 20:22 Dose: 0.5 mg Ampicillin Sodium/Sulbactam (Sodium 3 gm/ Sodium Chloride) 100 mls @ 200 mls/hr IVPB Q6HR [facility]; Protocol Last Admin: 02/06/25 17:38 Dose: 200 mls/hr Lactated Ringer's (Lactated Ringers) 1,000 mls @ 60 mls/hr IV .[id number] [facility] Last Admin: 02/06/25 04:55 Dose: 60 mls/hr Leucovorin Calcium (Leucovorin 5 Mg Tab) 5 mg PO Q8H [facility] Last Admin: 02/06/25 20:22 Dose: 5 mg Midodrine (Midodrine 5 Mg Tab) 2.5 mg PO AC-TID [facility] Last Admin: 02/06/25 17:38 Dose: 2.5 mg Naloxone HCl (Naloxone 0.4 Mg/Ml 1 Ml Vial) 0.2 mg IV Q2M PRN PRN Reason: Opioid Reversal Nystatin (Nystatin 100,000 Unit/Gm Powd 15 Gm) 1 applic TOPICAL BID [facility]; Protocol Last Admin: 02/06/25 20:34 Dose: 1 applic Ondansetron HCl (Ondansetron 4 Mg/2 Ml Vial) 4 mg IVP Q8HR PRN PRN Reason: Nausea And Vomiting Pantoprazole Sodium (Pantoprazole 40 Mg Tablet) 40 mg PO AC-BID [facility] Last Admin: 02/06/25 17:38 Dose: 40 mg Potassium Chloride (Potassium Chloride Er 20 Meq Tab.Er) 40 meq PO Q2HR [facility] Stop: 02/06/25 22:01 Last Admin: 02/06/25 20:22 Dose: 40 meq Pregabalin (Pregabalin 75 Mg Cap) 150 mg PO BID [facility] Last Admin: 02/06/25 12:49 Dose: 150 mg Sodium Bicarbonate (Salt And Soda Mouthwash 1,000 Ml) 5 ml PO 5XD [facility] Last Admin: 02/06/25 20:34 Dose: 5 ml Social history: Lives with her . Smokes a pack a day. Physical examination: VITAL SIGNS: Tmax 101.5 x 1 yesterday evening none since then. 85, 20, 102 x 61, 99% room air GENERAL: Laying in bed, comfortable. EYES: Pupils equal. Conjunctiva juan ramon l. HEENT: External appearance of nose and ears normal, oral cavity dried blood along the mucocutaneous junction: Better NECK: JVD not raised; masses not palpable. HEART: First and second heart sounds are normal; no edema. LUNGS: Respiratory rate i normal l; decreased breath sound. ABDOMEN: Soft, nontender, liver spleen not palpable, no masses palpable. PSYCH: [Alert and oriented x3; mood and affect anxious. MUSCULOSKELETAL:No Clubbing/cyanosis;muscles-grossly intact. DERMATOLOGICAL: Greatly improved redness in the thigh and lower abdomen. Areas of fungal infection also much improved. Nurse present INVESTIGATIONS, reviewed in the clinical context: February 06: White count 1.4 hemoglobin 7.8 platelets 42 sodium 135 potassium 2.8 creatinine 0.64 January 6: White count 0.9 hemoglobin 8.6 platelets 25 Methotrexate level: Less than 0.05 IgG normal at 1029. IgA normal at 292. IgM normal at 120. Rheumatoid factor increased at 215. Free kappa light chains increased at 5.78. Free lambda light chain increased at 5.89. February 04: White count 0.7 hemoglobin 7 platelets 15. Repeat after 1 unit PRBC hemoglobin 8.4 sodium 134 potassium 3.4 creatinine 0.71 February 03: White count 0.4 hemoglobin 7.7 platelets 11 potassium 3.6 creatinine 0.7 January 3: White count 0.6 hemoglobin 8.2 platelets 22 potassium 3.9 creatinine 0.66 lactic acid 0.9 Wound culture: Negative February 01: White count 0.8 hemoglobin 6.8 platelets 22 potassium 3.8 creatinine 0[address] abdomen pelvis: Suggestion of mild nodularity of the liver surface raising the concern for cirrhosis. Spleen, upper limit of normal in size. Ultrasound abdomen: Liver 19.1 cm. Gallbladder: Bile duct 1.07 cm. Negative Choi sign Iron 41 TIBC 200% saturation 20.5 transferrin 143 ferritin 616 ammonia 9 January 30, 2025: White count 0.92 hemoglobin 9.1 platelets 48 sodium 136 potassium 3.2 creatinine 0.89 total bilirubin 1.8 AST 48 ALT 37 Assessment plan: - Acute secondary severe cellulitis/mucositis primarily affecting the lips, bilateral upper thigh, groin area, perineum. Also present in the skin fold in the lower abdomen. Very tender. Moist and weeping. Possibly precipitated by underlying intertriginous fungal infection and made worse by immunosuppression: Much improvement IV Unasyn.. Topical nystatin powder. Local wound care. ID and wound care team following - Pancytopenia, from methotrexate,: Improving Hold methotrexate. Hematology following. Bone marrow biopsy done today February [address] Mandujano - Acute blood loss anemia secondary to bleeding from the skin disclamation deroofing from the cellulitis site.: Received 1 unit of PRBC -Likely bone marrow suppression from methotrexate. Methotrexate levels have come back to be less than 0.05 Started on leucovorin January 31 Bone marrow biopsy done - Severe hypokalemia potassium 2.8 Replace potassium. Repeat labs - Chronic rheumatoid arthritis Continue pain medications - Acute COPD exacerbation in a current smoker: Better Albuterol as needed - Depression Celexa. Abilify. - Chronic nicotine dependence, cigarette smoker Nicotine patch - Anxiety Xanax - Acute hypotension: Combination of blood loss anemia and fluid loss from desquamating skin. From cellulitis: Better Cozaar discontinued. IV fluid bolus was given. Followed by maintenance fluid. Added midodrine 2.5 AC 3 times daily - Essential hypertension, blood pressure running low Cozaar discontinued - Morbid obesity BMI 50.5 Weight loss measures, outpatient - Full code Fever could be antibiotic related. Clinically doing much better. Will watch until tomorrow. Repeat labs replace potassium. Discussed with patient. Past Medical History Past Medical History: Hypertension History of Any Multi-Drug Resistant Organisms: None Reported Past Surgical History: Section, Hysterectomy, Tonsillectomy Smoking Status: Current every day smoker
[2025-02-07 01:52] VITALS: RESP 16
[2025-02-07 06:46] LABS: HCT 24.2 % (37.2-46.3); HGB 8.3 g/dL (12.0-15.0); Immature Platelet Fraction 5.8 % (1.1-6.1); MCH 34.3 pg (27.0-32.0); MCHC 34.3 g/dL (32.0-37.0); Mean Platelet Volume 11.3 fL (9.5-12.2); RBC 2.42 10*6/uL (4.10-5.20); RDW 15.3 % (11.5-14.5)
[2025-02-07 06:51] LABS: Platelet Count 80 10*3/uL (140-440)
[2025-02-07 07:08] LABS: African American GFR (CKD) >90 (>60 ml/min/1.73 sqM); Anion Gap 5 mmol/L; Blood Urea Nitrogen 3 mg/dL (7-17); Calcium 7.6 mg/dL (8.4-10.2); Carbon Dioxide 22 mmol/L (22-30); Chloride 111 mmol/L (98-107); Glucose 74 mg/dL (74-99); Non-African American GFR(CKD) >90 (>60 ml/min/1.73 sqM); Potassium 3.4 mmol/L (3.5-5.1); Sodium 138 mmol/L (137-145)
[2025-02-07 07:23] LABS: Band Neutrophils % 5 %; Eosinophils # (M) 0.13 k/uL (0-0.7); Lymphocytes # (M) 1.48 k/uL (1.0-4.8); Monocytes # (M) 0.21 k/uL (0-1.0); Myelocytes # (M) 0.05 k/uL (0); Myelocytes % 2 %; Neutrophils # (M) 0.72 k/uL (1.3-7.7); Neutrophils % (M) 23 %; Nucleated Red Blood Cells 0 /100 WBC (0-0); Total Cells Counted 100
[2025-02-07 07:24] LABS: Anisocytosis (M) Present; Poikilocytosis (M) Present
[2025-02-07 07:31] LABS: Hypochromasia (M) Present
[2025-02-07] MEDS: AMPICILLIN-SULBACTAM 3 GM in SODIUM CHLORIDE 0.9% 100 ML IVPB SCH (09:10)
[2025-02-07 09:14] VITALS: BP 110/67; PULSE 80; TEMP 98.3
[2025-02-07] MEDS: LACTATED RINGERS 1,000 ML IV SCH (09:39)
--- NOTE | 2025-02-07 10:42 | P.PN ---
Subjective Progress Note Date: 02/07/25 Principal diagnosis: pancytopenia In follow-up today patient has not had any further fever since the 6th, no N,V, she is tolerating oral intake, she tolerated bone marrow without any immediate complications. Her pannus infection is improving. CBC showing improvements today. Objective - Vital Signs Vital signs: Vital Signs Temp 98.3 F 02/07/25 08:00 Pulse 80 02/07/25 08:00 Resp 16 02/07/25 08:00 BP 110/67 02/07/25 08:00 Pulse Ox 98 02/07/25 08:00 FiO2 Intake & Output 02/06/25 02/07/25 02/07/25 18:59 06:59 18:59 Intake Total 820 Balance 820 Weight 118 kg 122.1 kg Intake: IV 100 Oral 720 Other: # Voids 1 1 # Bowel Movements 1 - Constitutional General appearance: Present: cooperative, no acute distress, obese - EENT Eyes: Present: anicteric sclerae, EOMI ENT: Present: hearing grossly normal - Respiratory Details: resp unlabored - Cardiovascular Details: skin warm, well perfused - Peripheral edema leg Peripheral Edema: bilateral: None - Neurologic Neurologic: Present: CNII-XII intact - Musculoskeletal Musculoskeletal: Present: strength equal bilaterally - Psychiatric Psychiatric: Present: A&O x's 3, appropriate affect, intact judgment & insight - Labs CBC & Chem 7: 02/07/25 06:19 02/07/25 06:19 Labs: Abnormal Lab Results - Last 24 Hours (Table) 02/06/25 02/07/25 02/07/25 Range/Units 04:20 06:19 06:19 WBC 1.43 L* 2.60 L (4.50-10.00) 10*3/uL RBC 2.42 L (4.10-5.20) 10*6/uL Hgb 8.3 L (12.0-15.0) g/dL Hct 24.2 L (37.2-46.3) % MCV 100.0 H (80.0-97.0) fL MCH 34.3 H (27.0-32.0) pg RDW 15.3 H (11.5-14.5) % Plt Count 42 L D 80 L D (140-440) 10*3/uL Immature Gran # 0.68 H (0.00-0.04) 10*3/uL Neutrophils # (Manual) 0.21 L* 0.72 L (1.3-7.7) k/uL Lymphocytes # (Manual) 0.80 L (1.0-4.8) k/uL Metamyelocytes # (Man) 0.03 H (0) k/uL Myelocytes # (Manual) 0.03 H 0.05 H (0) k/uL Potassium 3.4 L (3.5-5.1) mmol/L Chloride 111 H (98-107) mmol/L BUN 3 L (7-17) mg/dL Calcium 7.6 L (8.4-10.2) mg/dL Microbiology - Last 24 Hours (Table) 02/05/25 22:51 Blood Culture - Preliminary Blood 02/05/25 21:46 Blood Culture - Preliminary Blood Assessment and Plan (1) Mental status alteration Current Visit: Yes Status: Resolved Priority: High Code(s): R41.82 - ALTERED MENTAL STATUS, UNSPECIFIED SNOMED Code(s): 356564706 (2) Pancytopenia Current Visit: Yes Status: Acute Priority: High Code(s): D61.818 - OTHER PANCYTOPENIA SNOMED Code(s): 373864472 (3) Rheumatoid arthritis Current Visit: Yes Status: Chronic Priority: Medium Code(s): M06.9 - RHEUMATOID ARTHRITIS, UNSPECIFIED SNOMED Code(s): 04722685 Plan: Mental status alteration -CT of the brain negative -Suspect may have been related to bacteremia and sepsis. Patient has done much better since IV fluids and antibiotics - Resolved Rheumatoid arthritis - On treatment for the same with methotrexate in the past. - It was thought that this was possibly contributing to patient's symptoms as well as pancytopenia. This has been discontinued for now. -Methotrexate level resulted, no concerning level noted. Pancytopenia -Today CBC reporting WBC 2.6, ANC 720, Hgb 8.3 and plt 80,000-improvements! -Pt did have bone marrow biopsy and aspirate yesterday, results can take 10-14 days to result. Pt and aware. -No transfusions needed today. Appts for twice a week lab draws until bone marrow results available. Appt in discharge plan for 02/11 at 10 am -Fever from the 6th may have been related to the increase in WBC. Cultures neg so far Message to IM pt is ok from Hem Onc for DC, pending abx recs and culture review from ID.
[2025-02-07] MEDS: POTASSIUM CHLORIDE ER 20 MEQ TAB.ER PO STA (12:47)
--- NOTE | 2025-02-07 14:29 | P.PN ---
Subjective Progress Note Date: 02/06/25 Principal diagnosis: Reason for follow-up is abdominal wall wound and cellulitis Patient is a 49-year-old female with a past medical history significant for hypertension anxiety depression current everyday smoker presenting to the hospital for evaluation of lower abdominal fold rash that apparently been going on for the last 3 to 4 days before presentation to the [facility]. On today's evaluation that is 02/06/2025, the patient did have a fever of 101.5 F last evening however the patient is afebrile this morning, the patient is on room air and breathing comfortably, the Pt denies having any chest pain or cough, the patient denies having any abdominal pain no vomiting or any diarrhea circumventing some discomfort to the bilateral groin area but seem to have imp roved. Patient did have a white count of 1.43 creatinine 0.64 Objective - Vital Signs Vital signs: Vital Signs Temp 98.6 F 02/06/25 19:06 Pulse 85 02/06/25 19:06 Resp 20 02/06/25 19:06 BP 102/61 02/06/25 19:06 Pulse Ox 99 02/06/25 19:06 FiO2 Intake & Output 02/06/25 02/06/25 02/07/25 06:59 18:59 06:59 Intake Total 820 Balance 820 Weight 118 kg Intake: IV 100 Oral 720 Other: Voiding Method Toilet # Voids 1 # Bowel Movements 1 - Exam GENERAL DESCRIPTION: Middle-age female lying in bed in no distress RESPIRATORY SYSTEM: Unlabored breathing , decreased breath sounds at bases HEART: S1 S2 regular rate and rhythm , ABDOMEN: Soft , no tenderness - Labs CBC & Chem 7: 02/07/25 06:19 02/07/25 06:19 Labs: Abnormal Lab Results - Last 24 Hours (Table) 02/06/25 02/06/25 Range/Units 04:20 04:20 WBC 1.43 L* (4.50-10.00) 10*3/uL RBC 2.26 L (4.10-5.20) 10*6/uL Hgb 7.8 L (12.0-15.0) g/dL Hct 22.4 L (37.2-46.3) % MCV 99.1 H (80.0-97.0) fL MCH 34.5 H (27.0-32.0) pg RDW 15.4 H (11.5-14.5) % Plt Count 42 L D (140-440) 10*3/uL Immature Gran # 0.16 H (0.00-0.04) 10*3/uL Neutrophils # (Manual) 0.21 L* (1.3-7.7) k/uL Lymphocytes # (Manual) 0.80 L (1.0-4.8) k/uL Metamyelocytes # (Man) 0.03 H (0) k/uL Myelocytes # (Manual) 0.03 H (0) k/uL Sodium 135 L (137-145) mmol/L Potassium 2.8 L (3.5-5.1) mmol/L Chloride 108 H (98-107) mmol/L BUN 3 L (7-17) mg/dL Calcium 7.6 L (8.4-10.2) mg/dL Assessment and Plan (1) Open abdominal wall wound Status: Acute Code(s): S31.109A - UNSP OPN WND ABD WALL, UNSP Q W/O PENET PERIT CAV, INIT SNOMED Code(s): 052250025 (2) Abdominal wall cellulitis Status: Acute Code(s): L03.311 - CELLULITIS OF ABDOMINAL WALL SNOMED Code(s): 22206174 (3) Elevated liver enzymes Status: Acute Priority: High Code(s): R74.8 - ABNORMAL LEVELS OF OTHER SERUM ENZYMES SNOMED Code(s): 352023862 Plan: 1patient presented to the hospital with painful abdominal wall rash in this patient who did have a superficial ulceration in the abdominal fold concerning for abdominal wall wound and secondary cellulitis likely from gram-positive skin martha less likely gram-negative infection. 2patient with elevated liver enzymes no significant tenderness to right upper quadrant area, CT and ultrasound did not show any acute abnormality to the liver or gallbladder area 3local culture has been obtained which are negative so far, did have a new fever for the patient did have blood culture repeat results will be followed 4patient did have improvement to bilateral groin area we will continue with the nystatin powder along with Unasyn and follow-up repeat cultures Dictation was produced using [employer] dictation software. please excuse any grammatical, word or spelling errors.
--- NOTE | 2025-02-07 14:30 | P.PN ---
Subjective Progress Note Date: 02/07/25 Principal diagnosis: Reason for follow-up is abdominal wall wound and cellulitis Patient is a 49-year-old female with a past medical history significant for hypertension anxiety depression current everyday smoker presenting to the hospital for evaluation of lower abdominal fold rash that apparently been going on for the last 3 to 4 days before presentation to the [facility]. On today's evaluation that is 02/07/2025, Patient is afebrile patient is currently on room air and denies having any shortness of breath, the patient denies any chest pain or cough, the patient denies any nausea vomiting did not have any abdominal pain and no diarrhea and pain to the groin has decreased in intensity. Patient white count is up to 2.60 creatinine 0.62 blood culture repeat has been negative Objective - Vital Signs Vital signs: Vital Signs Temp 98.3 F 02/07/25 08:00 Pulse 80 02/07/25 08:00 Resp 16 02/07/25 08:00 BP 110/67 02/07/25 08:00 Pulse Ox 98 02/07/25 08:00 FiO2 Intake & Output 02/06/25 02/07/25 02/07/25 18:59 06:59 18:59 Intake Total 820 Balance 820 Weight 118 kg 122.1 kg Intake: IV 100 Oral 720 Other: # Voids 1 1 # Bowel Movements 1 - Exam GENERAL DESCRIPTION: Middle-age female lying in bed in no distress RESPIRATORY SYSTEM: Unlabored breathing , decreased breath sounds at bases HEART: S1 S2 regular rate and rhythm , ABDOMEN: Soft , no tenderness - Labs CBC & Chem 7: 02/07/25 06:19 02/07/25 06:19 Labs: Abnormal Lab Results - Last 24 Hours (Table) 02/06/25 02/07/25 02/07/25 Range/Units 04:20 06:19 06:19 WBC 1.43 L* 2.60 L (4.50-10.00) 10*3/uL RBC 2.42 L (4.10-5.20) 10*6/uL Hgb 8.3 L (12.0-15.0) g/dL Hct 24.2 L (37.2-46.3) % MCV 100.0 H (80.0-97.0) fL MCH 34.3 H (27.0-32.0) pg RDW 15.3 H (11.5-14.5) % Plt Count 42 L D 80 L D (140-440) 10*3/uL Immature Gran # 0.68 H (0.00-0.04) 10*3/uL Neutrophils # (Manual) 0.21 L* 0.72 L (1.3-7.7) k/uL Lymphocytes # (Manual) 0.80 L (1.0-4.8) k/uL Metamyelocytes # (Man) 0.03 H (0) k/uL Myelocytes # (Manual) 0.03 H 0.05 H (0) k/uL Potassium 3.4 L (3.5-5.1) mmol/L Chloride 111 H (98-107) mmol/L BUN 3 L (7-17) mg/dL Calcium 7.6 L (8.4-10.2) mg/dL Microbiology - Last 24 Hours (Table) 02/05/25 22:51 Blood Culture - Preliminary Blood 02/05/25 21:46 Blood Culture - Preliminary Blood Assessment and Plan (1) Open abdominal wall wound Status: Acute Code(s): S31.109A - UNSP OPN WND ABD WALL, UNSP Q W/O PENET PERIT CAV, INIT SNOMED Code(s): 487045679 (2) Abdominal wall cellulitis Status: Acute Code(s): L03.311 - CELLULITIS OF ABDOMINAL WALL SNOMED Code(s): 97061437 (3) Elevated liver enzymes Status: Acute Priority: High Code(s): R74.8 - ABNORMAL LEVELS OF OTHER SERUM ENZYMES SNOMED Code(s): 618507193 Plan: 1patient presented to the hospital with painful abdominal wall rash in this patient who did have a superficial ulceration in the abdominal fold concerning for abdominal wall wound and secondary cellulitis likely from gram-positive skin martha less likely gram-negative infection. 2patient with elevated liver enzymes no significant tenderness to right upper quadrant area, CT and ultrasound did not show any acute abnormality to the liver or gallbladder area 3local culture has been obtained which are negative so far, did have a new fever for the patient did have blood culture repeat results will be followed 4patient did have resolution of her fever, blood culture repeat so far negative, improvement her white count as well as bilateral groin area 5patient to be advised nystatin powder along with short course of oral Keflex on discharge prescription sent to the pharmacy Dictation was produced using [employer] dictation software. please excuse any grammatical, word or spelling errors. Time with Patient: Less than 30
--- NOTE | 2025-02-07 15:18 | P.DS ---
Providers Date of admission: 01/30/25 19:49 Expected date of discharge: 02/07/25 Attending physician: Deon Kaba Consults: 01/30/25 11:24 Consult Physician Routine Consulting Provider: Eric Mandujano Consult Reason/Comments: leukopenia Do you want consulting provider notified?: Yes Consult Physician Routine Consulting Provider: Leo Ruiz Consult Reason/Comments: abd rash Do you want consulting provider notified?: Yes 01/30/25 21:38 Consult Physician Routine Consulting Provider: Eric Mandujano Consult Reason/Comments: Pancytopenia Do you want consulting provider notified?: Yes [facility] Course: 49-year-old patient follows Dr. John Galeano. Chronic medical conditions include anxiety, essential hypertension, depression, muscle spasms, chronic pain, rheumatoid arthritis. About 2 days ago patient noted increasing redness in the lower abdomen. Progressed to get much worse. Breakdown of skin under the skin fold. And also between the thighs. Patient has been scratching. Also she developed superficial bleeding on the lips. Slight soreness in the mouth. Denies any fever and chills. Patient did confirm that she has been scratching. She also has a dog at home. Has received all his vaccination. Patient denies any fever or chills. She is extremely painful in the groin area. Superficial breakdown of skin 2. January 1: Patient's pain is actually better. Did ambulate. Patient's and daughter at the bedside. Nicotine patch being ordered. Patient placed on IV Unasyn. And IV vancomycin per ID. IV fluids. CT abdomen pelvis showed evidence of possible cirrhosis. Tolerating diet. Patient seen by hematology. Workup in place. January 2: Local dressing continues. Antifungal has been added by ID. Vancomycin has been discontinued. Patient continues IV Unasyn. Discussed with the patient and daughter at the bedside. Patient did drop her hemoglobin to 6.8 bleeding from the cellulitic sites. Unit of blood ordered Leucovorin was started yesterday by hematology for probable methotrexate toxicity. Given low platelets will DC Mobic and ketorolac. Add PPI for prophylaxis January 3: Last night patient became hypotensive. Had to be given fluids. Then patient became tachypneic and some wheezing. Pulmonary was consulted. [place] added. [place] of COPD flareup. Patient is a smoker. Patient remains pancytopenic. Remains on leucovorin. Also on IV Unasyn. Discussed with and patient. February 03: Pancytopenia persist. Eating some. Some decrease in redness on the skin. Remains on IV Unasyn. Getting IV fluids. Nystatin topical powder. Discussed with patient . Add Ensure January 5: Hemoglobin this morning-7. In the setting of relatively low blood pressure we will give another unit of blood. Post transfusion hemoglobin 8.4. Platelets still running low. D spoke to Sherita pereira STONE REPAIRER from hematology if patient will benefit from platelet as patient continued to ooze from the infection site., Though better than before. Oral intake good. His blood pressure running on the lower side. AUGUST stockings both the legs ordered. Add midodrine 2.5 mg AC 3 times daily. Follow blood pressure. Cut back IV fluids to 60 cc an hour. As patient is feeling a bit puffy. February 05: Redness is significantly gone down. Spoke to ID. Groin findings also much better. Eating fair. Patient due for a bone marrow biopsy tomorrow. If CBC better could be discharged tomorrow. Remains on IV Unasyn. Nystatin powder. Discussed with patient . February 06: Yesterday evening patient did spike a fever 101.5. But has had no further fevers. Had a bone marrow today. Feels well. Patient's thigh and groin area much improved. Eating well. Having small bowel movements. Overall feels much better. I suspect this could be antibiotic related fever. Because clinically patient looks much better. Will watch another 24 hours. Nurse was present February 07: Discussed the temperature spike with ID. We both agree that this is could be antibiotic related. Clinically patient doing much better greatly improved skin symptoms. And signs. Will be discharged on oral course of antibiotic and topical antifungal. Also cleared by oncology. Will follow-up with them. For bone marrow biopsy results. Discussed with the patient . Again advised against smoking. Patient to be discharged on midodrine. Antihypertensives have been discontinued. Follow-up with PCP Discussion and discharge planning more than 35 minutes Social history: Lives with her . Smokes a pack a day. Physical examination: VITAL SIGNS: 98.3, 80, 16, 110 x 67, 98% room air GENERAL: Laying in bed, comfortable. EYES: Pupils equal. Conjunctiva juan ramon l. HEENT: External appearance of nose and ears normal, oral cavity dried blood along the mucocutaneous junction: Better NECK: JVD not raised; masses not palpable. HEART: First and second heart sounds are normal; no edema. LUNGS: Respiratory rate i normal l; decreased breath sound. ABDOMEN: Soft, nontender, liver spleen not palpable, no masses palpable. PSYCH: [Alert and oriented x3; mood and affect anxious. MUSCULOSKELETAL:No Clubbing/cyanosis;muscles-grossly intact. DERMATOLOGICAL: [Greatly improved redness in the thigh and lower abdomen. Areas of fungal infection also much improved. Nurse present]-from before INVESTIGATIONS, reviewed in the clinical context: February 07: White count 2.6 hemoglobin 8.3 platelets 80 sodium 138 potassium 3.4 creatinine 0.62 February 06: White count 1.4 hemoglobin 7.8 platelets 42 sodium 135 potassium 2.8 creatinine 0.64 February 05: White count 0.9 hemoglobin 8.6 platelets 25 Methotrexate level: Less than 0.05 IgG normal at 1029. IgA normal at 292. IgM normal at 120. Rheumatoid factor increased at 215. Free kappa light chains increased at 5.78. Free lambda light chain increased at 5.89. February 04: White count 0.7 hemoglobin 7 platelets 15. Repeat after 1 unit PRBC hemoglobin 8.4 sodium 134 potassium 3.4 creatinine 0.71 February 03: White count 0.4 hemoglobin 7.7 platelets 11 potassium 3.6 creatinine 0.7 January 3: White count 0.6 hemoglobin 8.2 platelets 22 potassium 3.9 creatinine 0.66 lactic acid 0.9 Wound culture: Negative February 01: White count 0.8 hemoglobin 6.8 platelets 22 potassium 3.8 creatinine 0[address] abdomen pelvis: Suggestion of mild nodularity of the liver surface raising the concern for cirrhosis. Spleen, upper limit of normal in size. Ultrasound abdomen: Liver 19.1 cm. Gallbladder: Bile duct 1.07 cm. Negative Choi sign Iron 41 TIBC 200% saturation 20.5 transferrin 143 ferritin 616 ammonia 9 January 30, 2025: White count 0.92 hemoglobin 9.1 platelets 48 sodium 136 potassium 3.2 creatinine 0.89 total bilirubin 1.8 AST 48 ALT 37 Assessment plan: - Acute secondary severe cellulitis/mucositis primarily affecting the lips, bilateral upper thigh, groin area, perineum. Also present in the skin fold in the lower abdomen. Very tender. Moist and weeping. Possibly precipitated by underlying intertriginous fungal infection and made worse by immunosuppression: Greatly improved IV Unasyn.. Topical nystatin powder. Local wound care. ID and wound care team following Discharged on Keflex 5 mg every 8 for 7 days. Mycostatin powder 3 times daily. - Pancytopenia, from methotrexate,: Improving Hold methotrexate. Hematology following. Bone marrow biopsy done today February [address] Mandujano - Acute blood loss anemia secondary to bleeding from the skin disclamation deroofing from the cellulitis site.: Received 1 unit of PRBC -Likely bone marrow suppression from methotrexate. Methotrexate levels have come back to be less than 0.05 Started on leucovorin January 31-discontinue on discharge Bone marrow biopsy done. Follow-up outpatient results hematology - Severe hypokalemia: Replaced Replace potassium. Repeat labs - Chronic rheumatoid arthritis Continue pain medications - Acute COPD exacerbation in a current smoker: Better Albuterol as needed - Depression Celexa. Abilify. - Chronic nicotine dependence, cigarette smoker Nicotine patch - Anxiety Xanax - Acute hypotension: Combination of blood loss anemia and fluid loss from desquamating skin. From cellulitis: Better Cozaar discontinued. IV fluid bolus was given. Followed by maintenance fluid. Added midodrine 2.5 AC 3 times daily - Essential hypertension, blood pressure running low Cozaar discontinued - Morbid obesity BMI 50.5 Weight loss measures, outpatient - Full code Disposition: Home Past Medical History Past Medical History: Hypertension History of Any Multi-Drug Resistant Organisms: None Reported Past Surgical History: Section, Hysterectomy, Tonsillectomy Smoking Status: Current every day smoker Plan - Discharge Summary Discharge Rx Participant: No New Discharge Prescriptions: New Cephalexin [Keflex] 500 mg PO Q8HR 7 Days #21 cap Nystatin 100,000 Unit/gm Powd [Mycostatin Powder] 1 applic TOPICAL TID #30 gm Midodrine HCl 2.5 mg PO AC-TID #60 tab Continue Folic Acid 1 mg PO DAILY Citalopram Hydrobromide [CeleXA] 60 mg PO DAILY Pregabalin [Lyrica] 150 mg PO BID Cyclobenzaprine [Flexeril] 10 mg PO TID PRN PRN Reason: Muscle Spasm ARIPiprazole [Abilify] 15 mg PO DAILY ALPRAZolam [Xanax] 0.5 mg PO TID Discontinued metHOTREXate sodium 15 mg PO TH hydroCHLOROthiazide [Hydrodiuril] 25 mg PO DAILY Losartan [Cozaar] 50 mg PO BID #60 tab Meloxicam [Mobic] 15 mg PO DAILY Furosemide [Lasix] 40 mg PO DAILY Potassium Chloride ER [K-Dur 20] 20 meq PO BID-W/MEALS Discharge Medication List ALPRAZolam [Xanax] 0.5 mg PO TID 01/30/25 [History] ARIPiprazole [Abilify] 15 mg PO DAILY 01/30/25 [History] Citalopram Hydrobromide [CeleXA] 60 mg PO DAILY 01/30/25 [History] Cyclobenzaprine [Flexeril] 10 mg PO TID PRN 01/30/25 [History] Folic Acid 1 mg PO DAILY 01/30/25 [History] Pregabalin [Lyrica] 150 mg PO BID 01/30/25 [History] Cephalexin [Keflex] 500 mg PO Q8HR 7 Days #21 cap 02/07/25 [Rx] Midodrine HCl 2.5 mg PO AC-TID #60 tab 02/07/25 [Rx] Nystatin 100,000 Unit/gm Powd [Mycostatin Powder] 1 applic TOPICAL TID #30 gm 02/07/25 [Rx] Follow up Appointment(s)/Referral(s): [employer] [facility] [Other] - 1 Week (Patient to make own follow-up with her Operations Support Professionals) Eric Mandujano [STAFF PHYSICIAN] - 02/11/25 10:00 am (Oncology Doctor) John Galeano MD [Primary Care Provider] - 1-2 days (Medical Doctor Patient to call and make follow up appointment.) Leo Ruiz MD [STAFF PHYSICIAN] - 02/18/25 2:15 pm (Infectious Disease Doctor) Patient Instructions/Handouts: Cephalexin (By mouth), Nystatin (On the skin), Midodrine (By mouth), Bone Marrow Biopsy (DC), Pancytopenia (DC) Activity/Diet/Wound Care/Special Instructions: As an insurance benefit, a nursing direct care counselor is available at and post discharge for needs. His name is Solomon, RN contact information [phone]. Please feel free to reach out. He will also call patient post discharge for follow up. Discharge Disposition: HOME SELF-CARE
== END 2025-02-07 14:23 | disposition home or self-care (01) | DRG 602 ==
LOC: EC 08:31 → 1SOBS 11:55 → OBSVTOIN 19:49 → 3SCARD 02-01 15:24 → 5NMEDONC 02-03 14:49
PROVIDERS: ADMIT Hospitalist; ATTEND Hospitalist
PROC: 30233N1 Transfusion of Nonautologous Red Blood Cells into Peripheral Vein, Percutaneous Approach (ICD-10-PCS; 2025-02-01)
PROC: 079T3ZX Drainage of Bone Marrow, Percutaneous Approach, Diagnostic (ICD-10-PCS; 2025-02-06)
PROC: 07DR3ZX Extraction of Iliac Bone Marrow, Percutaneous Approach, Diagnostic (ICD-10-PCS; principal; 2025-02-06 11:45)
DX: L03.311 Cellulitis of abdominal wall (principal); D61.811 Other drug-induced pancytopenia; J44.1 Chronic obstructive pulmonary disease with (acute) exacerbation; R17 Unspecified jaundice; D62 Acute posthemorrhagic anemia; Z68.43 Body mass index [BMI] 50.0-59.9, adult; M06.9 Rheumatoid arthritis, unspecified; F32.A Depression, unspecified; I10 Essential (primary) hypertension; L03.116 Cellulitis of left lower limb; L03.115 Cellulitis of right lower limb; E66.01 Morbid (severe) obesity due to excess calories; L98.491 Non-pressure chronic ulcer of skin of other sites limited to breakdown of skin; T45.1X5A Adverse effect of antineoplastic and immunosuppressive drugs, initial encounter; R58 Hemorrhage, not elsewhere classified; K12.30 Oral mucositis (ulcerative), unspecified; F17.210 Nicotine dependence, cigarettes, uncomplicated; F41.9 Anxiety disorder, unspecified; G89.29 Other chronic pain; X58.XXXA Exposure to other specified factors, initial encounter; M19.90 Unspecified osteoarthritis, unspecified site; Z79.1 Long term (current) use of non-steroidal anti-inflammatories (NSAID); Z79.899 Other long term (current) drug therapy; Z90.710 Acquired absence of both cervix and uterus; L03.315 Cellulitis of perineum; R41.82 Altered mental status, unspecified; R21 Rash and other nonspecific skin eruption; R50.9 Fever, unspecified; B96.89 Other specified bacterial agents as the cause of diseases classified elsewhere; M62.838 Other muscle spasm; Z71.6 Tobacco abuse counseling; Z71.3 Dietary counseling and surveillance
CPT/HCPCS: 36415; 38222; 70470; 74177; 76705; 80048; 80053; 80202; 80204; 81001; 82140; 82565; 82607; 82728; 82747; 82784; 83540; 83550; 83605; 83883; 83921; 84165; 85025; 85027; 86038; 86334; 86431; 86644; 86645; 86850; 86900; 86901; 86920; 87040; 87070; 87102; 87205; 94640; 96361; 96365; 96375; 99285

== ENCOUNTER → 2025-03-26 | Outpatient (CLI) | payer BC ==
[2025-03-26 19:37] LABS: Blood Urea Nitrogen 12.2 mg/dL (9.0-27.0); Glucose 92 mg/dL (70-110)
[2025-03-26 19:38] LABS: Calcium 9.4 mg/dL (8.7-10.3); Carbon Dioxide 30.2 mmol/L (21.6-31.8); Chloride 101 mmol/L (96-109); Sodium 143 mmol/L (135-145)
== END | disposition home or self-care (01) ==
LOC: LABWHC1 11:58
PROVIDERS: ATTEND Nurse Practitioner Family
DX: E87.6 Hypokalemia (principal); T50.905A Adverse effect of unspecified drugs, medicaments and biological substances, initial encounter
CPT/HCPCS: 36415; 80048

== ENCOUNTER 2025-03-28 05:35 | Day surgery (SDC) | payer BC ==
[2025-03-27 08:39] VITALS: BMI 42.0
[2025-03-28] MEDS ORDERED: LIDOCAINE 1% (10MG/ML) FOR IV START INTRADERMA PRN (06:43)
[2025-03-28 06:55] VITALS: TEMP 97.7
[2025-03-28] MEDS: LACTATED RINGERS 1,000 ML IV SCH (06:57)
[2025-03-28] MEDS ORDERED: LIDOCAINE 1% INJ 10MG/ML (20 ML MDV) ONE (07:00)
[2025-03-28] MEDS ORDERED: PROPOFOL 10 MG/ML 20 ML VIAL IV ONE (07:00)
--- NOTE | 2025-03-28 07:33 | P.PCN ---
Date of Procedure: 03/28/25 Preoperative Diagnosis: Pancytopenia, drug-induced, versus MDS. Excess blasts on previous bone marrow Postoperative Diagnosis: Same Procedure(s) Performed: Bone marrow aspiration biopsy Anesthesia: MAC Surgeon: Eric Mandujano Mold Checker #1: Stated None Estimated Blood Loss (ml): 2 Pathology: other Condition: stable Disposition: same day Indications for Procedure: Initial presentation with pancytopenia, possibly drug-induced. Previous bone marrow showed increased blasts. Bone marrow therefore being repeated for follow-up Operative Findings: Adequate sample Description of Procedure: The procedure was discussed in detail with the patient in the office. She presented to the outpatient endoscopy suite, where IV access and informed consent were obtained. She was then placed in the left lateral decubitus position. The area over both posterior iliac crest was cleaned and prepped with chlorhexidine and sterile draping. IV sedation was then initiated. Local anesthesia was administered with adequate to the right posterior iliac crest. Jamshidi needle was then introduced, and bone marrow aspirate and biopsy obtained. On withdrawal of the needle hemostasis was easily achieved. Blood loss was minimal and recovery from sedation was satisfactory. She appeared to have tolerated the procedure well without any obvious, immediate complications.
[2025-03-28 07:52] VITALS: RESP 18
[2025-03-28 08:18] VITALS: BP 115/71; PULSE 100
[2025-03-28 09:14] LABS: Basophils # (A) 0.02 10*3/uL (0.00-0.10); Basophils % (A) 0.5 %; Eosinophils # (A) 0.11 10*3/uL (0.04-0.35); Eosinophils % (A) 2.6 %; HCT 36.3 % (37.2-46.3); Lymphocytes # (A) 1.13 10*3/uL (0.90-5.00); Lymphocytes % (A) 26.6 %; MCH 33.5 pg (27.0-32.0); MCHC 33.9 g/dL (32.0-37.0); MCV 98.9 fL (80.0-97.0); Mean Platelet Volume 11.1 fL (9.5-12.2); Monocytes # (A) 0.25 10*3/uL (0.20-1.00); Monocytes % (A) 5.9 %; Neutrophils # (A) 2.73 10*3/uL (1.80-7.70); Neutrophils % (A) 64.2 %; RBC 3.67 10*6/uL (4.10-5.20); RDW 13.4 % (11.5-14.5); WBC 4.25 10*3/uL (4.50-10.00)
[2025-03-28 09:39] LABS: HGB 12.3 g/dL (12.0-15.0)
[2025-03-28 10:13] LABS: RBC Morphology Normal
[2025-03-28 10:14] LABS: Platelet Count 90 10*3/uL (140-440)
[2025-03-28 15:54] LABS: Reticulocyte % 1.93 % (0.10-1.80)
== END 2025-03-28 08:36 | disposition home or self-care (01) ==
LOC: OR 05:35
PROVIDERS: ATTEND Internal Medicine Hematology & Oncology
DX: D61.811 Other drug-induced pancytopenia (principal); I10 Essential (primary) hypertension; F41.9 Anxiety disorder, unspecified; F32.A Depression, unspecified; F17.210 Nicotine dependence, cigarettes, uncomplicated; Z79.899 Other long term (current) drug therapy
CPT/HCPCS: 85025; 85045; 38222; J2003; J2704